=== PATIENT | male | born 1980 | race Caucasian/White ===

== ENCOUNTER 2016-09-30 23:40 | Emergency (ER) | payer MEDICAID ==
[~2016-09-30] VITALS: Ht 172.7 cm; Wt 61.2 kg
[~2016-09-30 23:40] MED LIST: ACHD5005 PO; AGM875T PO; AMOX500C2 PO; CLOT15CR4 TP; DICL25CA4 PO; HYDR-3812 PO; HYDR-757 PO; IBP800T PO; MPR22T TP; MUPI15CR TP; MUPI22OI TOP; NAPR500T3 PO; PERM60CR10 TOP; SULF-222 PO; SULF1TAB35 PO; TRAM50TA2 PO
--- OUTSIDE RECORDS SUMMARY | 2016-09-30 23:46 | XMS REPORT | Continuity of Care Document ---
Author Author [facility] Organization [facility] Address Unknown Phone Unavailable Care Team Providers Care Home Care Giver Name Role Phone NO, LOCAL PHYSICIAN PCP Unavailable Insurance Providers Payer Name Policy Number Subscriber Name Relationship [facility] [id number] Ritu Orlando S 18 Self / Same As Patient Advance Directives Directive Response Recorded Date/Time Advance Directives No 04/03/16 2:00pm Organ Donor Yes 02/29/16 5:34pm Chief Complaint and Reason for Visit Chief Complaint Skin/Wound Problems Reason for Visit [id number] Problems Active Problems Medical Problem Onset Date Status Abscess of axilla, left Unknown Acute Cellulitis of left forearm Unknown Acute Abndskkeaj-svxhniutl-kcleeym (DPT) vaccination administeredat current visit Unknown Acute History of MRSA infection Unknown Acute Jammed interphalangeal joint of finger of left hand Unknown Acute Perineal abscess, superficial Unknown Acute Scabies Unknown Acute Soft tissue infection Unknown Acute Thumb pain Unknown Acute Thumb pain Unknown Acute Medications Current Home Medications Medication Dose Units Route Directions Days/Qty Instructions Start Date Sulfamethoxazole/Trimethoprim 1 Each 1 Each Oral Twice A Day 20 Hydrocodone/Acetaminophen 1 Each 1 Each Oral Every 4HRS as needed for Pain 10 04/04/16 Past Home Medications Medication Directions Ordered Status Amoxicillin/Clavulanate Potassium 1 Tab Tablet, 1 Tab Oral Twice A Day Discontinued Mupirocin 22 Gm Tube, 0 Topical Twice A Day 11/22/12 Discontinued Amoxicillin 500 Mg Capsule, 1 Each Oral Three Times A Day 12/05/12 Discontinued Amoxicillin 500 Mg Capsule, 1 Each Oral Three Times A Day 11/26/13 Discontinued Acetaminophen/Hydrocodone Bitart 1 Each Tablet, 1-2 Each Oral Every 6 Hours as needed for Pain 11/26/13 Discontinued Tramadol Hcl 50 Mg Tablet, 50-100 Mg Oral Every 4HRS as needed for Pain 02/24 Discontinued Amoxicillin 500 Mg Capsule, 2 Each Oral Every 8HRS 02/24/14 Discontinued Ibuprofen 800 Mg Tablet, 800 Mg Oral Every 8HRS as needed for Pain 02/24/14 Discontinued Sulfamethoxazole/Trimethoprim 1 Each Tablet, 2 Each Oral Twice A Day Discontinued Mupirocin 22 Gm Oint...g., 0 Topically Twice A Day 12/04/15 Discontinued Sulfamethoxazole/Trimethoprim 1 Each Tablet, 1 Each Oral Twice A Day Discontinued Hydrocodone/Acetaminophen 1 Each Tablet, 1 Each Oral Every 4HRS as needed for Pain 02/29/16 Discontinued Social History Social History Problem Response Recorded Date/Time Alcohol Use Denies Use 02/29/2016 5:34pm Recreational Drug Use N DENIES, BUT HAS BEEN IN ER IN PAST FOR METH USE 02/28 5:34pm Recent Foreign Travel No 04/04/2016 2:22pm Sexually Transmitted Disease No 04/03/2016 2:00pm Type Used Cigarettes 04/03/2016 2:00pm Hospital Discharge Instructions No hospital discharge instructions. Plan of Care Discharge Date 04/04/16 3:17pm Disposition 01 HOME, SELF-CARE Condition at Discharge Improved Instructions/Education Provided Abscess Incision and Drainage (ED) Prescriptions See Medication Section Referrals NO,LOCAL PHYSICIAN - Primary Care Physician Additional Instructions/Education 1. Warm soaks in a bathtub 2. Continue the antibiotic ointment and pills 3. Return to ER for any worsening redness, swelling, fevers or other concerns All discharge instructions reviewed with patient and/or family. Voiced understanding. Functional Status No functional status results. Allergies, Adverse Reactions, Alerts No known allergies. Immunizations No immunization records. Vital Signs Acute Vital Signs Vital Response Date/Time Temperature (Fahrenheit) 98.8 degrees F (97.6 - 99.5) 04/03/2016 2:29pm Temperature (Calculated Celsius) 37.67615 degrees C (36.4 - 37.5) 04/03/2016 2:29pm Pulse Rate (adult) 110 bpm (60 - 90) 04/03/2016 2:29pm Respiratory Rate 18 bpm (12 - 24) 04/03/2016 2:29pm O2 Sat by Pulse Oximetry 97 % (88 - 100) 04/03/2016 2:29pm Blood Pressure 124/78 mm Hg 04/03/2016 2:29pm Blood Pressure Mean 93 mm Hg 04/03/2016 2:00pm Pain Numeric Pain Scale 0-No Pain 04/03/2016 2:29pm Height (Feet) 5 feet 04/03/2016 2:00pm Height (Inches) 9 inches 04/03/2016 2:00pm Height (Calculated Centimeters) 175.819604 cm 04/03/2016 2:00pm Weight (Pounds) 130 pounds 04/03/2016 2:00pm Weight (Calculated Kilograms) 58.158381 kilograms 04/03/2016 2:00pm Capillary Refill Capillary Refill Less Than 3 Seconds 04/03/2016 2:00pm Results No known relevant diagnostic tests, laboratory data and/or discharge summary. Procedures No known history of procedures. Encounters Encounter Location Arrival/Admit Date Discharge/Depart Date Attending Provider Departed Emergency Room [facility] 04/04/16 2:23pm 04/04 3:17pm JAZMINE LU MD Departed Emergency Room [facility] 04/03/16 1:56pm 04/03 2:30pm СЕРГЕЙ DAVIES MD Recent Diagnosis
[2016-10-01] MEDS ORDERED: RX-MUPIROCIN (BACTROBAN) 2% OINT 22 GM TUBE TOP STA (01:20)
[2016-10-01] MEDS ORDERED: RX-TRAMADOL 50 MG (ULTRAM) TAB PPK#4 PO STA (01:20)
[2016-10-01] MEDS ORDERED: TRIM/SULFAMETH 160/800 (SEPTRA DS) TAB PO STA (01:20)
--- NOTE | 2016-10-01 01:23 | ED Integumentary General ---
General Chief Complaint: Skin/Wound Problems Stated Complaint: MRSA ON NECK Nursing Triage Note: REPORTS A BOIL LEFT SIDE NECK ON THURSDAY WAS PICKED AT 2200 AND CONTINUES TO FILL UP. C/O SEVERE PAIN THAT IBUPROFEN, TYLENOL, AND ALEVE DOES NOT RELIEVE. ALSO STATES TRAMADOL IN PAST DOES NOT RELIEVE. Source: patient Exam Limitations: no limitations History of Present Illness Time seen by provider: 00:50 Initial Comments Here with report of painful/draining wound to the left side of the neck. States he has history of MRSA infections. Has been using dressing over the top and it is draining yellow fluid. He tried popping it which did get some purulent drainage from it. Complains of worse pain now. Home pain medications are not working. Timing/Duration: getting worse, other (couple of days) Severity: moderate Location: torso Possible Cause: no cause identified Associated Symptoms: edemaNo fever, flushingNo petechiae, No rash Allergies and Home Medications Allergies Coded Allergies: No Known Drug Allergies (Unverified , 11/19/12) Home Medications No Active Prescriptions or Reported Meds Constitutional: see HPINo chills, No fever Respiratory: no symptoms reported Cardiovascular: no symptoms reported Gastrointestinal: no symptoms reported Skin: see HPI change in color lesions Past Qaizucs-Vqvaup-Mrcoia Hx Patient Social History Alcohol Use: Denies Use Recreational Drug Use: No Smoking Status: Current Everyday Smoker Type Used: Cigarettes Recent Foreign Travel: No Contact w/Someone Who Travel: No Recent Infectious Disease Expo: No Recent Hopitalizations: No Physical Abuse Screen: No Sexual Abuse: No Immunizations Up To Date Tetanus Booster (TDap): Unknown Seasonal Allergies Seasonal Allergies: No Surgeries HX Surgeries: No Respiratory Hx Respiratory Disorders: No Cardiovascular Hx Cardiac Disorders: No Neurological Hx Neurological Disorders: No Reproductive System Hx Reproductive Disorders: No Sexually Transmitted Disease: No Genitourinary Hx Genitourinary Disorders: No Gastrointestinal Hx Gastrointestinal Disorders: No Musculoskeletal Hx Musculoskeletal Disorders: No Endocrine Hx Endocrine Disorders: No HEENT HX ENT Disorders: No Cancer Hx Cancer: No Psychosocial Hx Psychiatric Problems: No Integumentary HX Skin/Integumentary Disorder: Yes (MRSA ABSCESS HX, CURRENTLY ABSCESS LEFT SIDE OF NECK) Blood Transfusions Hx Blood Disorders: No Reviewed Nursing Assessment Reviewed/Agree w Nursing PMH: Yes Family Medical History Significant Family History: No Pertinent Family Hx Physical Exam Vital Signs Vital Sign - Last 12Hours 10/01/16 00:07 Temp 97.7 Pulse 93 Resp 16 B/P 119/79 O2 Delivery Room Air Capillary Refill : Less Than 3 Seconds General Appearance: WD/WN no apparent distress Neck: full range of motion supple other (draining abscess to the left upper neck near the angle of the jaw.) Cardiovascular: regular rate, rhythm no murmur Respiratory: lungs clear no accessory muscle use Neurologic/Psychiatric: alert oriented x 3 Skin: warm/dry Skin Problem Location: neck Skin Problem Character: abscess, drainage, erythema Progress/Results/Core Measures Results/Orders My Orders Orders-СЕРГЕЙ DAVIES MD Sulfamethoxazole/Trimet Ds Tab (Bactrim (10/01/16 01:20) Rx-Mupirocin 2% Oint (Rx-Bactroban) (10/01/16 01:20) Rx-Tramadol Hcl (Rx-Ultram) (10/01/16 01:20) Vital Signs/I&O Vital Sign - Last 12Hours 10/01/16 00:07 Temp 97.7 Pulse 93 Resp 16 B/P 119/79 O2 Delivery Room Air Blood Pressure Mean: 92 Progress Note : Progress Note Seen and evaluated. Bactrim DS one tab by mouth. Mupirocin ointment to the wound. Tramadol go pack given. Discharged home with return precautions. Patient verbalize understanding instructions and agreement with plan. Departure Impression Impression: Primary Impression: Abscess Disposition: HOME, SELF-CARE Condition: Stable Departure-Patient Inst. Decision time for Depature: 01:28 Referrals: NO,LOCAL PHYSICIAN (PCP/Family) Primary Care Physician Patient Instructions: Skin Abscess Add. Discharge Instructions: All discharge instructions reviewed with patient and/or family. Voiced understanding. Take medications as directed. Follow-up with your DrChristen in a few days for recheck. Return for worsening, fever, vomiting, weakness, rhythm problems or other concerns as needed. You may take Aleve 2 tablets twice daily for pain as well as the prescribed pain medicine. Use antibiotic ointment over the wound twice daily for the next several days or until healing over. Scripts Sulfamethoxazole/Trimethoprim (Sulfamethoxazole-Tmp Ds Tablet)1 Each Tablet1 Each PO BID #20 TAB Prov:СЕРГЕЙ DAVIES MD 10/01/16 Hydrocodone/Acetaminophen (Hydrocodon -Acetaminophen 5-325)1 Each Tablet1 Each PO Q6H PRN PAIN #10 TAB Prov:СЕРГЕЙ DAVIES MD 10/01/16 СЕРГЕЙ DAVIES MD Oct 01, 2016 01:23
[2016-10-01] MEDS ORDERED: SULF-222 PO (01:30)
[2016-10-01] MEDS ORDERED: HYDR-3812 PO (01:30)
[2016-10-01 01:45] VITALS: BP 124/69
== END 2016-10-01 01:44 | disposition home or self-care (01) ==
LOC: EDUNIT# 23:40 → ER 23:43
DX: L02.11 Cutaneous abscess of neck (principal); F17.210 Nicotine dependence, cigarettes, uncomplicated; Z86.14 Personal history of Methicillin resistant Staphylococcus aureus infection

== ENCOUNTER 2017-02-08 18:42 | Emergency (ER) | payer MEDICAID ==
[~2017-02-08] VITALS: Ht 172.7 cm; Wt 59.0 kg
[2017-02-08] MEDS ORDERED: L.E.T. SYRINGE 5 ML TOP ONE (20:00)
[2017-02-08] MEDS ORDERED: LIDOCAINE/EPI 1%-1:100,000 (XYLOCAINE) 20ML ONE (20:17)
[2017-02-08] MEDS ORDERED: HYDROcodone/APAP 5 MG/325 MG (LORTAB) TAB PO ONE (20:30)
[2017-02-08] MEDS ORDERED: LIDOCAINE/EPI 1%-1:100,000 (XYLOCAINE) 20ML INJ ONE (20:30)
[2017-02-08] MEDS ORDERED: RX-TRAMADOL 50 MG (ULTRAM) TAB PPK#4 PO STA (20:30)
[2017-02-08] MEDS ORDERED: DOXYCYCLINE 100 MG (VIBRAMYCIN) TABLET PO ONE (20:30)
[2017-02-08] MEDS ORDERED: DOXY100T2 PO (20:37)
--- NOTE | 2017-02-08 20:37 | ED Integumentary General ---
General Chief Complaint: Skin/Wound Problems Stated Complaint: MRSA BOIL Nursing Triage Note: PT TO ED 10 W/ C/O POSS MRSA "BOIL" TO UPPER GROIN ET "NUT SACK" X1 WK. NO OTHER C/O VOICED. PT IS REQUESTING HERLINDA TO BE HIS PROVIDER Source: patient, old records Exam Limitations: no limitations History of Present Illness Time seen by provider: 19:45 Initial Comments This 37-year-old gentleman presents to emergency room with complaints of recurrent groin and genital abscesses. He has had multiple lesions in the past and cultures have grown out MRSA with the same sensitivities which time. He typically takes Bactrim for these abscesses and has required incision and drainage multiple times. These abscesses have been present for several days. The lesion on his scrotum has drained and seems to be improving. He has had slight purulent drainage from the abscess in the suprapubic region. He denies any fevers. He is localized erythema around the suprapubic abscess. Allergies and Home Medications Allergies Coded Allergies: No Known Drug Allergies (Unverified , 11/19/12) Home Medications Doxycycline Hyclate 100 Mg Tablet, 100 MG PO BID, #20 Prescribed by: VICTOR HUGO TONEY on 02/08/172036 Hydrocodone/Acetaminophen 1 Each Tablet, 1 EACH PO Q6H PRN for PAIN, #10 Prescribed by: СЕРГЕЙ DAVIES on 10/01/16129 Sulfamethoxazole/Trimethoprim 1 Each Tablet, 1 EACH PO BID, #20 Prescribed by: СЕРГЕЙ DAVIES on 10/01/16129 Constitutional: no symptoms reported EENTM: no symptoms reported Respiratory: no symptoms reported Cardiovascular: no symptoms reported Gastrointestinal: no symptoms reported Genitourinary: no symptoms reported Musculoskeletal: no symptoms reported Skin: see HPI Psychiatric/Neurological: No Symptoms Reported Endocrine: No Symptoms Reported Hematologic/Lymphatic: No Symptoms Reported Past Vzzflwc-Qkzksm-Xrxwgx Hx Patient Social History Alcohol Use: Denies Use Recreational Drug Use: No Smoking Status: Current Everyday Smoker Type Used: Cigarettes Recent Foreign Travel: No Contact w/Someone Who Travel: No Recent Infectious Disease Expo: No Recent Hopitalizations: No Immunizations Up To Date Tetanus Booster (TDap): Unknown Seasonal Allergies Seasonal Allergies: No Surgeries HX Surgeries: Yes (incision and drainage of multiple abscesses) Respiratory Hx Respiratory Disorders: No Cardiovascular Hx Cardiac Disorders: No Neurological Hx Neurological Disorders: No Reproductive System Hx Reproductive Disorders: No Sexually Transmitted Disease: No Genitourinary Hx Genitourinary Disorders: No Gastrointestinal Hx Gastrointestinal Disorders: No Musculoskeletal Hx Musculoskeletal Disorders: No Endocrine Hx Endocrine Disorders: No HEENT HX ENT Disorders: No Cancer Hx Cancer: No Psychosocial Hx Psychiatric Problems: No Integumentary HX Skin/Integumentary Disorder: Yes (MRSA ABSCESS HX) Blood Transfusions Hx Blood Disorders: No Family Medical History Significant Family History: No Pertinent Family Hx Physical Exam Vital Signs Vital Sign - Last 12Hours 02/08/17 19:18 Temp 97.8 Pulse 86 Resp 20 B/P (MAP) 127/82 Pulse Ox 99 O2 Delivery Room Air Capillary Refill : Less Than 3 Seconds General Appearance: WD/WN, no apparent distress HEENT: normal ENT inspection Neck: normal inspection Cardiovascular: regular rate, rhythm, no edema, no murmur Respiratory: lungs clear, normal breath sounds, no respiratory distress, no accessory muscle use Extremities: normal inspection Neurologic/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 Erythema in the suprapubic area associated with induration and mild fluctuance of an abscess just superior to the base of the penis. There is a minute amount of purulent drainage coming from this area.) Skin Problem Character: abscess I&D : Blade Size: 11 Progress Skin was pretreated with LET. He had insufficient numbing of the skin with LET and requested injection for further anesthetic. Skin was cleaned with alcohol and less than 0.5 mL of lidocaine with epinephrine was injected directly under the skin to be incised. Skin was cleaned with chlorhexidine. A 5 mm incision was made over the area of greatest fluctuance. A significant amount of purulent thick drainage was expressed and milked out of the incision. The wound was bluntly and gently probed with hemostats. A small amount of additional purulent material was expressed. Wound was dressed with antibiotic ointment and sterile gauze. Patient tolerated the procedure well. Progress/Results/Core Measures Results/Orders My Orders Orders - VICTOR HUGO FANG MD Let Solution (Let Solution) (02/08/17 20:00) Hydrocodone/Apap 5/325 Tablet (Lortab 5 (02/08/17 20:30) Lidocaine/Epi 1% 1:100,000 (Xylocaine /E (02/08/17 20:30) Doxycycline Hyclate Tablet (Vibramycin T (02/08/17 20:30) Lidocaine/Epi 1% 1:100,000 (Xylocaine /E (02/08/17 20:17) Rx-Tramadol Hcl (Rx-Ultram) (02/08/17 20:30) Medications Given in ED Current Medications Medications Dose Ordered Sig/Shayan Route Start Time Stop Time Status Last Admin Dose Admin Acetaminophen/ Hydrocodone Bitart 1 tab ONCE ONCE PO 02/08/17 20:30 02/08/17 20:31 DC 02/08/17 20:29 1 TAB Doxycycline Hyclate 100 mg ONCE ONCE PO 02/08/17 20:30 02/08/17 20:31 DC 02/08/17 20:29 100 MG Lidocaine/ Epinephrine 20 ml ONCE ONCE INJ 02/08/17 20:30 02/08/17 20:31 DC 02/08/17 20:21 20 ML Tetracaine/ Epinephrine/ Lidocaine 1 ea ONCE ONCE TOP 02/08/17 20:00 02/08/17 20:01 DC 02/08/17 19:58 1 EA Vital Signs/I&O Vital Sign - Last 12Hours 02/08/17 19:18 Temp 97.8 Pulse 86 Resp 20 B/P (MAP) 127/82 Pulse Ox 99 O2 Delivery Room Air Blood Pressure Mean: 97 Progress Note : Progress Note Patient was given LET as pretreatment. He was then additionally given an injection of lidocaine with epinephrine for further anesthesia at his request. Incision and drainage was performed and a significant amount of purulent material was expressed. Wound was dressed. Patient was given doxycycline 100 mg orally, hydrocodone 5 mg, and a take-home pack of tramadol. He was offered a Toradol injection but declined. Wound was not cultured as there are multiple consistent cultures of MRSA in his chart. Departure Impression Impression: Primary Impression: Suprapubic abscess Additional Impressions: Encounter for incision and drainage procedure Scrotal abscess Cellulitis Qualified Codes: L03.90 - Cellulitis, unspecified Disposition: 01 HOME, SELF-CARE Condition: Improved Departure-Patient Inst. Decision time for Depature: 20:32 Referrals: NO,LOCAL PHYSICIAN (PCP/Family) Primary Care Physician Patient Instructions: Abscess Incision and Drainage (DC), Skin Abscess, MRSA ( DC) Add. Discharge Instructions: Complete your antibiotics as prescribed. Please be advised that this antibiotic may cause sun sensitivity. Use ibuprofen up to 600 mg every 6 hours or naproxen up to 500 mg every 12 hours for primary pain control. Add Tylenol and Ultram (tramadol) for additional pain control if needed. Warm moist compresses or warm sitz baths 2 or 3 times daily over the next couple of days will help the abscess continued to drain. Return to care if symptoms worsen, especially if you develop fevers over 100. You may purchase Hibiclens (chlorhexidine) soap [id number]. Wash head to toe with Hibiclens daily until your current abscess and cellulitis have resolved. Then wash with Hibiclens once weekly to prevent further abscesses. You may use Hibiclens along with your usual soap to improve sudsing. Avoid shaving affected areas. All discharge instructions reviewed with patient and/or family. Voiced understanding. Scripts Doxycycline Hyclate (Doxycycline Hyclate) 100 Mg Tablet 100 MG PO BID, #20 TAB Prov: VICTOR HUGO FANG MD 02/08/17 VICTOR HUGO FANG MD Feb 08, 2017 20:36
[2017-02-08 20:44] VITALS: BP 122/79
[2017-02-08] MEDS ORDERED: TRAM-42 PO (21:02)
== END 2017-02-08 20:42 | disposition home or self-care (01) ==
LOC: EDUNIT# 18:42 → ER 18:43
DX: N49.2 Inflammatory disorders of scrotum (principal); L03.90 Cellulitis, unspecified; F17.210 Nicotine dependence, cigarettes, uncomplicated; Z87.2 Personal history of diseases of the skin and subcutaneous tissue
CPT/HCPCS: 99283

== ENCOUNTER 2017-05-19 20:52 | Emergency (ER) | payer MEDICAID ==
[~2017-05-19] VITALS: Ht 177.8 cm; Wt 59.0 kg
[~2017-05-19 20:52] MED LIST changes: +DOXY100T2 PO; +TRAM-42 PO
[2017-05-19] MEDS ORDERED: SULF1TAB35 PO (21:54)
--- NOTE | 2017-05-19 21:55 | ED Integumentary General ---
General Chief Complaint: Skin/Wound Problems Stated Complaint: FACE SORE Nursing Triage Note: ABSCESS ON R CHEEK X 1 WEEK Source: patient Exam Limitations: no limitations History of Present Illness Time seen by provider: 21:53 Initial Comments To ER with a nodule to the right cheek for 1 week. He's been applying warm compresses and today this developed a pustule. He was scared about this at home sick in the emergency room. He does have a history of abscesses and MRSA. Timing/Duration: just prior to arrival Severity: moderate Location: face Associated Symptoms: denies symptoms Allergies and Home Medications Allergies Coded Allergies: No Known Drug Allergies (Unverified , 11/19/12) Home Medications Doxycycline Hyclate 100 Mg Tablet, 100 MG PO BID, #20 Prescribed by: VICTOR HUGO TONEY on 02/08/172036 Hydrocodone/Acetaminophen 1 Each Tablet, 1 EACH PO Q6H PRN for PAIN, #10 Prescribed by: СЕРГЕЙ DAVIES on 10/01/16129 Sulfamethoxazole/Trimethoprim 1 Each Tablet, 1 EACH PO BID, #20 Prescribed by: СЕРГЕЙ DAVIES on 10/01/16129 Tramadol HCl 50 Mg Tablet, 50 MG PO QID, #10 Prescribed by: VICTOR HUGO TONEY on 02/08/172101 Constitutional: see HPI EENTM: see HPI Respiratory: no symptoms reported Cardiovascular: no symptoms reported Genitourinary: no symptoms reported Musculoskeletal: no symptoms reported Skin: see HPI Psychiatric/Neurological: No Symptoms Reported Past Ekooqzf-Gwwxcu-Ctkbwl Hx Patient Social History Alcohol Use: Denies Use Recreational Drug Use: No Smoking Status: Current Everyday Smoker Type Used: Cigarettes Recent Foreign Travel: No Contact w/Someone Who Travel: No Recent Infectious Disease Expo: No Recent Hopitalizations: No Physical Abuse: No Sexual Abuse: No Immunizations Up To Date Tetanus Booster (TDap): Unknown Seasonal Allergies Seasonal Allergies: No Surgeries History of Surgeries: No Respiratory History of Respiratory Disorde: No Cardiovascular History of Cardiac Disorders: No Neurological History of Neurological Disord: No Reproductive System Hx Reproductive Disorders: No Sexually Transmitted Disease: No Gastrointestinal History of Gastrointestinal Di: No Musculoskeletal History of Musculoskeletal Dis: No Endocrine History of Endocrine Disorders: No Cancer History of Cancer: No Psychosocial History of Psychiatric Problem: No Suicide Risk Score: 0 Integumentary History of Skin or Integumenta: Yes (MRSA ABSCESS HX, CURRENTLY ABSCESS LEFT SIDE OF NECK) Blood Transfusions History of Blood Disorders: No Family Medical History Significant Family History: No Pertinent Family Hx Physical Exam Vital Signs Vital Sign - Last 12Hours 05/19/17 21:34 Temp 98.9 Pulse 84 Resp 18 B/P (MAP) 135/78 Pulse Ox 98 Capillary Refill : Less Than 3 Seconds General Appearance: WD/WN, no apparent distress HEENT: PERRL/EOMI, normal ENT inspection, other (there is a small 1 semi- pustule to the right cheek easily unroofed with an 11 blade scalpel with no lidocaine required. Small amount of purulent material expressed.) Neck: non-tender, full range of motion Respiratory: normal breath sounds, no respiratory distress Gastrointestinal: non tender, soft Neurologic/Psychiatric: alert, normal mood/affect, oriented x 3 Skin: normal color, warm/dry Skin Problem Character: abscess Progress/Results/Core Measures Results/Orders Vital Signs/I&O Vital Sign - Last 12Hours 05/19/17 21:34 Temp 98.9 Pulse 84 Resp 18 B/P (MAP) 135/78 Pulse Ox 98 Blood Pressure Mean: 97 Departure Impression Impression: Primary Impression: Facial abscess Disposition: 01 HOME, SELF-CARE Condition: Stable Departure-Patient Inst. Decision time for Depature: 21:54 Referrals: NO,LOCAL PHYSICIAN (PCP/Family) Primary Care Physician Patient Instructions: Skin Abscess Add. Discharge Instructions: 1. Continue to use warm compresses to this area 2. Pain medication and antibiotic as directed 3. Return to ER for any concerns All discharge instructions reviewed with patient and/or family. Voiced understanding. Scripts Sulfamethoxazole/Trimethoprim (Bactrim Ds Tablet) 1 Each Tablet 1 EACH PO BID, #14 TAB Prov: MARIANN MCDONALD SHRINK PIT OPERATOR 05/19/17 MARIANN MCDONALD APRN May 19, 2017 21:55
[2017-05-19] MEDS ORDERED: RX-HYDROCODONE/APAP 5/325 MG #4 TAB PK PO PRN (22:00)
[2017-05-19] MEDS ORDERED: TRIM/SULFAMETH 160/800 (SEPTRA DS) TAB PO ONE (22:00)
[2017-05-19 22:03] VITALS: BP 135/78
== END 2017-05-19 22:03 | disposition home or self-care (01) ==
LOC: EDUNIT# 20:52 → ER 20:54
DX: L02.01 Cutaneous abscess of face (principal); Z87.2 Personal history of diseases of the skin and subcutaneous tissue; F17.210 Nicotine dependence, cigarettes, uncomplicated

== ENCOUNTER 2017-05-30 11:12 | Emergency (ER) | payer MEDICAID ==
[~2017-05-30] VITALS: Ht 182.9 cm; Wt 61.2 kg
[2017-05-30] MEDS ORDERED: NAPR500T3 (11:57)
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
[2017-05-30] MEDS ORDERED: SULF1TAB35 PO (12:42)
[2017-05-30] MEDS ORDERED: TRAM50TA2 PO (12:42)
[2017-05-30] MEDS: TRIM/SULFAMETH 160/800 (SEPTRA DS) TAB PO ONE (12:57)
[2017-05-30] MEDS: IBUPROFEN 800 MG (MOTRIN) TAB PO STA (12:57)
[2017-05-30 12:59] VITALS: BP 131/88
== END 2017-05-30 12:59 | disposition home or self-care (01) ==
LOC: EDUNIT# 11:12 → ER 11:14
DX: S92.491A Other fracture of right great toe, initial encounter for closed fracture (principal); L03.031 Cellulitis of right toe; V19.9XXA Pedal cyclist (driver) (passenger) injured in unspecified traffic accident, initial encounter
CPT/HCPCS: 73630; 99283

== ENCOUNTER 2017-08-02 12:37 | Emergency (ER) | payer MEDICAID ==
[~2017-08-02] VITALS: Ht 182.9 cm; Wt 61.2 kg
[~2017-08-02 12:37] MED LIST changes: -NAPR500T3 PO; +NAPR500T4; +NAPR500T4 PO
[2017-08-02] MEDS ORDERED: LIDOCAINE 1% INJ 20 ML (XYLOCAINE) VIAL INJ ONE (12:45)
--- NOTE | 2017-08-02 12:49 | ED Integumentary General ---
General Stated Complaint: MRSA WOUND ON CHIN Source: patient Exam Limitations: no limitations History of Present Illness Time seen by provider: 12:43 Initial Comments Patient has ER by private conveyance with chief complaint that he has a small abscess on the mentum this started a few days ago. Patient has not been on antibiotic last 4 weeks although he does have a history of several abscesses that he is had treated in the past. He does not have any allergies although he does smoke half pack a day and has had no fevers, chills, nausea, vomiting, or skin rash. Allergies and Home Medications Allergies Coded Allergies: No Known Drug Allergies (Unverified , 11/19/12) Home Medications Naproxen 500 Mg Tablet, (Reported) Sulfamethoxazole/Trimethoprim 1 Each Tablet, 1 EACH PO BID, #14 Ref 0 Prescribed by: HERLINDA PINZON on 05/30/17 1242 Tramadol HCl 50 Mg Tablet, 50 MG PO Q6H PRN for pain, #10 Ref 0 Prescribed by: HERLINDA PINZON on 05/30/17 1242 Constitutional: No chills, No diaphoresis EENTM: no symptoms reported Respiratory: No cough, No short of breath Cardiovascular: No chest pain, No palpitations Gastrointestinal: No abdominal pain, No nausea, No vomiting Skin: see HPI Psychiatric/Neurological: Denies Headache, Denies Numbness Past Ojxvugd-Jucjhu-Phtgac Hx Patient Social History Alcohol Use: Denies Use Recreational Drug Use: No Smoking Status: Current Everyday Smoker Type Used: Cigarettes (0.5ppd) Recent Foreign Travel: No Contact w/Someone Who Travel: No Recent Hopitalizations: No Immunizations Up To Date Tetanus Booster (TDap): Less than 5yrs Seasonal Allergies Seasonal Allergies: No Surgeries History of Surgeries: No Respiratory History of Respiratory Disorde: No Cardiovascular History of Cardiac Disorders: No Neurological History of Neurological Disord: No Reproductive System Hx Reproductive Disorders: No Sexually Transmitted Disease: No Gastrointestinal History of Gastrointestinal Di: No Musculoskeletal History of Musculoskeletal Dis: No Endocrine History of Endocrine Disorders: No HEENT History of HEENT Disorders: No Cancer History of Cancer: No Psychosocial History of Psychiatric Problem: No Integumentary History of Skin or Integumenta: Yes (MRSA ABSCESS HX,) Blood Transfusions History of Blood Disorders: No Family Medical History Significant Family History: No Pertinent Family Hx Physical Exam Vital Signs Capillary Refill : General Appearance: no apparent distress, thin HEENT: PERRL/EOMI, pharynx normal Neck: non-tender, normal inspection Cardiovascular: normal peripheral pulses, regular rate, rhythm Respiratory: no respiratory distress, no accessory muscle use Neurologic/Psychiatric: alert, oriented x 3 Skin: other (27 m diameter erythematous indurated portion with a central poor and small amount of purulent material oozing out of a area on the anterior mentum.) Lymphatic: no adenopathy I&D : Blade Size: 11 I & D Procedure: betadine prep (alcohol) Progress Site was cleaned with iodine and alcohol and then infiltrated and a ring block fashion with the cc of 1% lidocaine without epinephrine. The patient was ascertained to be numb 11 blade was introduced in a cross alcantara fashion to the pore producing approximately 3 cc of purulent white, caseous material. Wound was then lightly explored with the blunt end of a cotton tipped sterile applicator to break up loculations and then a light gauze dressing was applied. Patient tolerated procedure well. Progress/Results/Core Measures Results/Orders My Orders Orders - HERNANDO BROWN Lidocaine 1% Injection (Xylocaine 1% Inj (08/02/17 12:45) Departure Impression Impression: Primary Impression: Abscess Disposition: 01 HOME, SELF-CARE Condition: Stable Departure-Patient Inst. Decision time for Depature: 13:00 Referrals: NO,LOCAL PHYSICIAN (PCP/Family) Primary Care Physician Patient Instructions: Abscess Incision and Drainage (DC) Add. Discharge Instructions: Keep the wound clean with soap and water. I'll light gauze dressing is already needed. Do not put any Vaseline, triple antibiotic ointment or packing into the wound. Take one tablet of Bactrim twice a day for the next 5 days. Use 1000 g of Tylenol every 8 hours or 800 mg of ibuprofen every 8 hours as needed for pain. If your pain is not under complete control you may also use an ice pack over the area or heat. If this does not control your pain and follow- up with her primary care physician for reexamination of the wound. The skin should heal over in the first 24-48 hours. If you begin to experience nausea and vomiting or fevers you should return to the ER or your primary care physician for evaluation. Scripts Sulfamethoxazole/Trimethoprim (Bactrim Ds Tablet) 1 Each Tablet 1 EACH PO BID for 5 Days, #10 TAB 0 Refills Prov: STEPHANIE,HERNANDO J 08/02/17 HERNANDO BROWN Aug 02, 2017 12:49
[2017-08-02] MEDS ORDERED: SULF1TAB35 PO (13:03)
[2017-08-02 13:08] VITALS: BP 153/96
== END 2017-08-02 13:08 | disposition home or self-care (01) ==
LOC: EDUNIT# 12:37 → ER 12:39
DX: L02.01 Cutaneous abscess of face (principal); F17.210 Nicotine dependence, cigarettes, uncomplicated; Z87.2 Personal history of diseases of the skin and subcutaneous tissue

== ENCOUNTER 2017-12-18 21:40 | Emergency (ER) | payer MEDICAID ==
[~2017-12-18] VITALS: Ht 172.7 cm; Wt 54.4 kg
[~2017-12-18 21:40] MED LIST changes: -HYDR-3812 PO; +NAPR-915; +NAPR-915 PO; -NAPR500T4; -NAPR500T4 PO
[2017-12-18] MEDS ORDERED: RX-NAPROXEN (NAPROSYN) 250 MG TAB PPK#4 PO STA (21:58)
[2017-12-18] MEDS ORDERED: RX-TRIMETH/SULFA. 160-800 MG (BACTRIM DS) TAB PPK#2 PO STA (21:58)
[2017-12-18] MEDS ORDERED: RX-HYDROCODONE/APAP 5/325 MG #4 TAB PK PO PRN (22:00)
[2017-12-18] MEDS ORDERED: SULF1TAB35 PO (22:02)
--- NOTE | 2017-12-18 22:02 | ED Integumentary General ---
General Chief Complaint: Skin/Wound Problems Stated Complaint: L ANKLE PAIN Source: patient Exam Limitations: no limitations History of Present Illness Date Seen by Provider: Dec 18, 2017 Time Seen by Provider: 21:59 Initial Comments To ER with an abscess to left anterior ankle. Present for a few days, got some white pus out of it. History of multiple and recurrent MRSA infections. No fevers or chills. Timing/Duration: constant Allergies and Home Medications Allergies Coded Allergies: No Known Drug Allergies (Unverified , 11/19/12) Home Medications Sulfamethoxazole/Trimethoprim 1 Each Tablet, 1 EACH PO BID Prescribed by: HERNANDO BROWN on 08/02/17 1303 Patient Home Medication List Home Medication List Reviewed: Yes Constitutional: see HPI EENTM: see HPI Respiratory: no symptoms reported Genitourinary: no symptoms reported Musculoskeletal: no symptoms reported Skin: see HPI Psychiatric/Neurological: No Symptoms Reported Past Elxjlhh-Kqyhko-Rkqqoc Hx Patient Social History Alcohol Use: Denies Use Recreational Drug Use: No Smoking Status: Current Everyday Smoker Type Used: Cigarettes 2nd Hand Smoke Exposure: Yes Recent Foreign Travel: No Contact w/Someone Who Travel: No Recent Hopitalizations: No Immunizations Up To Date Tetanus Booster (TDap): Less than 5yrs Seasonal Allergies Seasonal Allergies: No Past Medical History Surgeries: No Respiratory: No Cardiac: No Neurological: No Reproductive Disorders: No Sexually Transmitted Disease: No Genitourinary: No Gastrointestinal: No Musculoskeletal: No Endocrine: No HEENT: No Cancer: No Psychosocial: No Integumentary: Yes (MRSA ABSCESS HX,) Blood Disorders: No Family Medical History No Pertinent Family Hx Physical Exam Vital Signs Capillary Refill : General Appearance: WD/WN, no apparent distress HEENT: PERRL/EOMI, normal ENT inspection Neck: non-tender, full range of motion Respiratory: no respiratory distress, no accessory muscle use Neurologic/Psychiatric: alert, normal mood/affect, oriented x 3 Skin: normal color, warm/dry Skin Problem Character: abscess, other (Small 2 cm area of circular erythema to the left anterior lower leg without lymphangitis. There is minimal induration and certainly no fluctuance. There is a small eschar over this. There is a larger area just distal to this with erythema more consistent with a small area of cellulitis measuring about 6 x 7 cm, again without lymphangitis, induration or fluctuance.) Progress/Results/Core Measures My Orders Orders - MARIANN MCDONALD APRN Rx-Trimeth/Sulfameth Ds Tab (Rx-Bactrim/ (12/18/17 21:58) Rx-Naproxen (Rx-Naprosyn) (12/18/17 21:58) Rx-Hydrocodone/Apap 5-325 Mg (Rx-Vicodin (12/18/17 22:00) Departure Impression Primary Impression: Abscess of left lower leg Disposition: HOME, SELF-CARE Condition: Stable Departure-Patient Inst. Decision time for Depature: 22:01 Referrals: NO,LOCAL PHYSICIAN (PCP/Family) Primary Care Physician Patient Instructions: Skin Abscess Add. Discharge Instructions: 1. Warm compresses to this area. 2. Antibiotics as directed 3. All discharge instructions reviewed with patient and/or family. Voiced understanding. Scripts Sulfamethoxazole/Trimethoprim (Bactrim Ds Tablet) 1 Each Tablet 1 EACH PO BID, #14 TAB Prov: MARIANN MCDONALD APRN 12/18/17 MARIANN MCDONALD APRN Dec 18, 2017 22:02
[2017-12-18 22:12] VITALS: BP 132/87
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
== END 2017-12-18 22:11 | disposition home or self-care (01) ==
LOC: EDUNIT# 21:40 → ER 21:41
DX: L02.416 Cutaneous abscess of left lower limb (principal); F17.210 Nicotine dependence, cigarettes, uncomplicated; Z86.14 Personal history of Methicillin resistant Staphylococcus aureus infection
CPT/HCPCS: 99283

== ENCOUNTER 2018-01-24 02:29 | Emergency (ER) | payer MEDICAID ==
[~2018-01-24] VITALS: Ht 182.9 cm; Wt 63.5 kg
[2018-01-24 02:54] VITALS: BP 158/88
--- NOTE | 2018-01-24 03:01 | ED Integumentary General ---
General Stated Complaint: WOUND,RASH ISSUES Source: patient Exam Limitations: no limitations History of Present Illness Date Seen by Provider: January 24, 2018 Time Seen by Provider: 02:53 Initial Comments Patient resists ER by private conveyance with a chief complaint of a knot on the back of his neck that has swollen up and his been draining a little pus and blood the past couple days. He has abscesses here before. He's had them drained at this ER and at those times she was given some pain medicine he said and some antibiotics. Allergies and Home Medications Allergies Coded Allergies: No Known Drug Allergies (Unverified , 11/19/12) Home Medications Sulfamethoxazole/Trimethoprim 1 Each Tablet, 1 EACH PO BID Prescribed by: HERNANDO BROWN on 08/02/17 1303 Sulfamethoxazole/Trimethoprim 1 Each Tablet, 1 EACH PO BID Prescribed by: MARIANN MCDONALD on 12/18/17 2202 Patient Home Medication List Home Medication List Reviewed: Yes Constitutional: No chills, No fever, No malaise EENTM: No ear discharge, No ear pain Respiratory: No cough, No short of breath Cardiovascular: No chest pain, No palpitations Gastrointestinal: No abdominal pain, No constipation, No diarrhea, No nausea, No vomiting Genitourinary: No discharge, No dysuria Musculoskeletal: No back pain, No joint pain Past Tooqsqa-Qbbgyh-Ovlutm Hx Patient Social History Alcohol Use: Occasionally Uses Recreational Drug Use: No Smoking Status: Current Everyday Smoker Type Used: Cigarettes 2nd Hand Smoke Exposure: Yes Recent Foreign Travel: No Contact w/Someone Who Travel: No Recent Hopitalizations: No Immunizations Up To Date Tetanus Booster (TDap): Less than 5yrs Seasonal Allergies Seasonal Allergies: No Past Medical History Surgeries: No Respiratory: No Cardiac: No Neurological: No Reproductive Disorders: No Sexually Transmitted Disease: No Genitourinary: No Gastrointestinal: No Musculoskeletal: No Endocrine: No HEENT: No Cancer: No Psychosocial: No Integumentary: Yes (MRSA ABSCESS HX,) Blood Disorders: No Family Medical History No Pertinent Family Hx Physical Exam Vital Signs Vital Signs - First Documented 01/24/18 02:54 Temp 97.4 Pulse 117 Resp 20 B/P (MAP) 158/88 (111) Pulse Ox 97 O2 Delivery Room Air Capillary Refill : General Appearance: WD/WN, no apparent distress HEENT: PERRL/EOMI, pharynx normal Neck: non-tender, normal inspection Cardiovascular: normal peripheral pulses, regular rate, rhythm Respiratory: chest non-tender, lungs clear, normal breath sounds, no respiratory distress, no accessory muscle use Gastrointestinal: normal bowel sounds, non tender, soft Neurologic/Psychiatric: alert, oriented x 3 Skin: other (nodule that is tender with area of fluctuance underneath it and a central pore on the base of his neck.) Progress/Results/Core Measures Results/Orders Vital Signs/I&O 01/24/18 02:54 Temp 97.4 Pulse 117 Resp 20 B/P (MAP) 158/88 (111) Pulse Ox 97 O2 Delivery Room Air Progress Progress Note #1: Time: 03:00 Progress Note We will use some lidocaine then incise and drained his abscess. Progress Note #2: Time: 03:37 Progress Note Got about 6 cc of lidocaine and a ring block fashion around an infiltrating his wound gave him 10 minutes to set and then went in and tested him he said he was not feeling any pain so we inserted the 11 blade scalpel one time he said he had a lot of pain so we offered him some more lidocaine he said that he would just go somewhere else because we clearly normal were doing. Departure Impression Primary Impression: Abscess Disposition: 07 AGAINST MEDICAL ADVICE Condition: Against Medical Advice Departure-Patient Inst. Decision time for Depature: 03:38 Referrals: NO,LOCAL PHYSICIAN (PCP/Family) Primary Care Physician Patient Instructions: Abscess Incision and Drainage (DC) Add. 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 Follow- up with a primary care provider during business hours and have your abscess drained. Scripts Sulfamethoxazole/Trimethoprim (Bactrim Ds Tablet) 1 Each Tablet 1 EACH PO BID for 5 Days, #10 TAB 0 Refills Prov: HERNANDO BROWN 01/24/18 HERNANDO BROWN January 24, 2018 03:01
[2018-01-24] MEDS ORDERED: SULF1TAB35 PO (03:40)
== END 2018-01-24 03:35 | disposition left against medical advice (07) ==
LOC: EDUNIT# 02:29 → ER 02:30
DX: L02.11 Cutaneous abscess of neck (principal); F17.210 Nicotine dependence, cigarettes, uncomplicated; Z87.2 Personal history of diseases of the skin and subcutaneous tissue
CPT/HCPCS: 10060

== ENCOUNTER 2018-01-26 14:53 | Emergency (ER) | payer MEDICAID ==
[~2018-01-26] VITALS: Ht 182.9 cm; Wt 63.5 kg
--- OUTSIDE RECORDS SUMMARY | 2018-01-26 15:01 | XMS REPORT ---
Author Author TRAVIS EDDY [facility] Address [address] [place] [address] Care Team Providers Care Risk Assessment Consultant Name Role Phone TRAVIS EDDY Unavailable PROBLEMS Unknown Problems ALLERGIES No Known Allergies ENCOUNTERS Encounter Location Date Diagnosis [facility] [id number] [place] [id number] Nov, Dental examination Z01.20 and Dental caries K02.9 [place] [id number] [place] [id number] [place] [phone] Jun, Hospital discharge follow-up Z09 and Closed nondisplaced fracture of proximal phalanx of right great toe with routine healing, subsequent encounter S92.414D [facility] [address] [place] [address] Feb, MRSA (methicillin resistant Staphylococcus aureus) infection A49.02 [facility] [address] [place] [phone] Jul, Unspecified injury of left wrist, hand and finger(s), subsequent encounter S69.92XD [facility] [address] [place] [id number] Mar, Dental examination V72.2 [facility] [address] [place] [address] Dec, [facility] [id number] [place] [address] Dec, [facility] [address] [place] [phone] Oct, [facility] [id number] [place] [phone] Oct, [facility] [id number] [address] Oct, 2014 [facility] [address] [place] [address] Oct, 2014 [facility] [id number] [place] [address] Oct, 2014 [facility] [address] [address] Aug, [facility] [address] [place] [address] Aug, [facility] [id number] [address] Aug, [facility] [id number] [place] [address] Aug, [facility] [address] [place] [address] Aug, [facility] [address] [place] [address] Aug, [facility] [id number] [place] [address] Aug, [facility] [address] [place] [address] Aug, [facility] [id number] [address] Dec, IMMUNIZATIONS No Known Immunizations SOCIAL HISTORY Never Assessed REASON FOR VISIT Hospital f/u- vc--[facility], -Right great toe fracture PLAN OF CARE Activity Details Follow Up prn Reason: VITAL SIGNS Height 72 in 2017-06-08 Weight 138.0 lbs 2017-06-08 Temperature 98.5 degrees Fahrenheit 2017-06-08 Heart Rate 64 bpm 2017-06-08 Respiratory Rate 20 2017-06-08 BMI 18.71 kg/m2 2017-06-08 Blood pressure systolic 130 mmHg 2017-06-08 Blood pressure diastolic 82 mmHg 2017-06-08 MEDICATIONS Medication Instructions Dosage Frequency Start Date End Date Duration Status Bactrim 400-80 MG Orally 2 times a day 1 tablet 12h 10 days Active RESULTS No Results PROCEDURES No Known procedures INSTRUCTIONS MEDICATIONS ADMINISTERED No Known Medications MEDICAL (GENERAL) HISTORY Type Description Date Medical History Adjustment disorder with mixed disturbance of emotions and conduct Medical History Other psoriasis
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
--- NOTE | 2018-01-26 15:35 | ED General ---
General Chief Complaint: Upper Extremity Stated Complaint: ABSCESS ON NECK AND RIGHT HAND INJ Nursing Triage Note: PT STATES HE HIT A DOOR YESTERDAY, RT HAND SWOLLEN AND PAINFUL. ALSO HAS AN ABSCESS ON THE BACK OF HIS HEAD. Nursing Sepsis Screen: No Definite Risk Source of Information: Patient Exam Limitations: No Limitations History of Present Illness Date Seen by Provider: January 26, 2018 Time Seen by Provider: 15:20 Initial Comments 38 yo male patient presents to the ED with c/o right hand pain after hitting a door yesterday when he was angry. Also c/o an abscess of the posterior neck for approximately a week. He was seen in the ED by Dr. Stovall on 01/24/18, but left AMA. He did not stay to get antibiotics. Patient denies contacting his PCP for recheck or new complaint. denies using [id number] medications for symptoms. Patient has a h/o numerous infections and abscesses. Modifying Factors: improves with Immobilization; worse with Movement Allergies and Home Medications Allergies Coded Allergies: No Known Drug Allergies (Unverified , 11/19/12) Home Medications Hydrocodone/Acetaminophen 1 Each Tablet, 1 EACH PO Q6H PRN for pain Prescribed by: HERLINDA PINZON on 01/26/18 1638 Sulfamethoxazole/Trimethoprim 1 Each Tablet, 1 EACH PO BID Prescribed by: HERNANDO STOVALL on 08/02/17 1303 Sulfamethoxazole/Trimethoprim 1 Each Tablet, 1 EACH PO BID Prescribed by: MARIANN MCDONALD on 12/18/17 2202 Sulfamethoxazole/Trimethoprim 1 Each Tablet, 1 EACH PO BID Prescribed by: HERNANDO STOVALL on 01/24/18 0340 Sulfamethoxazole/Trimethoprim 1 Each Tablet, 1 EACH PO BID Prescribed by: HERLINDA PINZON on 01/26/18 1638 Patient Home Medication List Home Medication List Reviewed: Yes Review of Systems Constitutional: No chills, No fever, No malaise EENTM: no symptoms reported Respiratory: no symptoms reported Cardiovascular: no symptoms reported Musculoskeletal: see HPI, joint pain (rt hand), joint swelling (rt hand swelling.) Skin: see HPI, lumps (infections of the posterior neck.) Psychiatric/Neurological: No Symptoms Reported All Other Systems Reviewed Negative Unless Noted: Yes (Negative excepted noted.) Past Inscvwb-Dnydix-Zmjgln Hx Past Med/Social Hx: Reviewed Nursing Past Med/Soc Hx Patient Social History Alcohol Use: Denies Use Recreational Drug Use: No Smoking Status: Current Everyday Smoker Type Used: Cigarettes 2nd Hand Smoke Exposure: Yes Recent Foreign Travel: No Contact w/Someone Who Travel: No Recent Infectious Disease Expo: No Recent Hopitalizations: No Immunizations Up To Date Tetanus Booster (TDap): Less than 5yrs Seasonal Allergies Seasonal Allergies: No Past Medical History Surgeries: No Respiratory: No Cardiac: No Neurological: No Reproductive Disorders: No Sexually Transmitted Disease: No Genitourinary: No Gastrointestinal: No Musculoskeletal: No Endocrine: No HEENT: No Cancer: No Psychosocial: No Integumentary: Yes (MRSA ABSCESS HX,) Blood Disorders: No Family Medical History Reviewed Nursing Family Hx No Pertinent Family Hx Physical Exam Vital Signs Vital Signs - First Documented 01/26/18 15:22 Temp 97.8 Pulse 98 Resp 20 B/P (MAP) 127/93 (104) Pulse Ox 99 O2 Delivery Room Air Capillary Refill : Less Than 3 Seconds General Appearance: No Apparent Distress, WD/WN HEENT: PERRL/EOMI, Pharynx Normal Neck: Full Range of Motion, Supple, Other (a cluster of superficial pustules noted with a central scab of the posterior scalp (see images). (+) induration with mild localized swelling and erythema. no warmth noted.) Cardiovascular: Normal Peripheral Pulses Extremity: Normal Capillary Refill, Other ((+) swelling of the right hand with mild bony and soft tissue tenderness to the distal 5th metacarpal. no ecchymosis noted.) Neurologic/Psychiatric: Alert, Oriented x3, No Motor/Sensory Deficits, Normal Mood/Affect Skin: Normal Color, Warm/Dry, Other (a cluster of superficial pustules noted with a central scab of the posterior scalp (see images). (+) induration with mild localized swelling and erythema. no warmth noted.) Procedures/Interventions Splinting and Joint Reduction : Location: rt hand Pre-Proc Neuro Vasc Exam: normal Post-Proc Neuro Vasc Exam: normal Davidson wrap: Yes (to secure orthoglass) Hand-Made Type: orthoglass Splint Application: Short Arm Progress/Results/Core Measures Suspected Sepsis Recent Fever Within 48 Hours: No Infection Criteria Present: None New/Unexplained Altered Menta: No Sepsis Screen: No Definite Risk SIRS Temperature:97.8 Pulse: 98 Respiratory Rate: 20 Blood Pressure 127 /93 Mean: 104 Results/Orders My Orders Orders - HERLINDA PINZON Hand, Right, 3 Views (01/26/18 15:17) Hydrocodone/Apap 5/325 Tablet (Lortab 5 (01/26/18 15:40) Vital Signs/I&O 01/26/18 01/26/18 15:22 16:13 Temp 97.8 97.8 Pulse 98 Resp 20 B/P (MAP) 127/93 (104) Pulse Ox 99 O2 Delivery Room Air Capillary Refill : Less Than 3 Seconds Blood Pressure Mean: 104 Diagnostic Imaging Diagonstic Imaging: Xray Plain Films/CT/US/NM/MRI: hand Comments HAND, RIGHT, 3 VIEWS INDICATION: Pain. FINDINGS: There is a fracture of the distal fifth metacarpal. The distal fracture fragment is angled volarly. There is no other fracture or dislocation. The soft tissues are unremarkable. IMPRESSION: Slightly displaced fracture of the distal fifth metacarpal. Dictated by: Dictated on workstation # [id number] Reviewed: Reviewed by Me (radiology report reviewed by me) Departure Impression Primary Impression: Fracture of fifth metacarpal bone of right hand Additional Impression: Abscess or cellulitis of scalp Disposition: 01 HOME, SELF-CARE Condition: Improved Departure-Patient Inst. Decision time for Depature: 16:37 Referrals: NO,LOCAL PHYSICIAN (PCP) Primary Care Physician JOJO GOOD MD Patient Instructions: How to Use a Shoulder Sling, Hand Fracture (DC) Add. Discharge Instructions: All discharge instructions reviewed with patient and/or family. Voiced understanding. Medications as instructed. No ibuprofen or Aleve. Elevate the right hand on pillows. Ice pack for 20 minute intervals as needed for pain and swelling. Keep the splint clean and dry. Arm sling as instructed. Left arm activities only until released by Dr. Good. Follow-up with Dr. Good within the next 7 days for recheck. Call tomorrow morning for appointment time. Return to the emergency department for worsened symptoms or any other concerns. Scripts Sulfamethoxazole/Trimethoprim (Bactrim Ds Tablet) 1 Each Tablet 1 EACH PO BID, #20 TAB 0 Refills Prov: HERLINDA PINZON 01/26/18 Hydrocodone/Acetaminophen (Hydrocodone-Acetamin 5-325 mg) 1 Each Tablet 1 EACH PO Q6H PRN for pain, #14 TAB 0 Refills Prov: HERLINDA PINZON 01/26/18 HERLINDA PINZON January 26, 2018 15:35
[2018-01-26] MEDS ORDERED: HYDROcodone/APAP 5 MG/325 MG (LORTAB) TAB PO STA (15:40)
--- NOTE | 2018-01-26 15:54 | Diagnostic Imaging Report ---
INDICATION: Pain. FINDINGS: There is a fracture of the distal fifth metacarpal. The distal fracture fragment is angled volarly. There is no other fracture or dislocation. The soft tissues are unremarkable. IMPRESSION: Slightly displaced fracture of the distal fifth metacarpal. Dictated by: Dictated on workstation # [id number]
[2018-01-26] MEDS ORDERED: HYDR-3812 PO (16:38)
[2018-01-26] MEDS ORDERED: SULF1TAB35 PO (16:38)
[2018-01-26 17:24] VITALS: BP 125/90
== END 2018-01-26 17:24 | disposition home or self-care (01) ==
LOC: EDUNIT# 14:53 → ER 14:57
DX: S62.396A Other fracture of fifth metacarpal bone, right hand, initial encounter for closed fracture (principal); L02.811 Cutaneous abscess of head [any part, except face]; F17.210 Nicotine dependence, cigarettes, uncomplicated; W22.09XA Striking against other stationary object, initial encounter
CPT/HCPCS: 29125; 73130

== ENCOUNTER 2018-04-06 21:53 | Emergency (ER) | payer MEDICAID ==
[~2018-04-06] VITALS: Ht 172.7 cm; Wt 63.5 kg
[~2018-04-06 21:53] MED LIST changes: +HYDR-3812 PO
[2018-04-06] MEDS ORDERED: KETOROLAC 30 MG/ML VIAL IVP STA (22:14)
[2018-04-06] MEDS ORDERED: LACTATED RINGERS 1,000 ML IV ONE (22:14)
--- NOTE | 2018-04-06 22:17 | ED GU-Male ---
General Chief Complaint: -Male Stated Complaint: BLOOD IN URINE Nursing Triage Note: PT PRESENTS TO ER WITH COMPLAINT OF BLOOD IN URINE FOR FOUR DAYS. Source: patient History of Present Illness Date Seen by Provider: Apr 06, 2018 Time Seen by Provider: 22:05 Initial Comments PT ARRIVES VIA POV--STATES HE WALKED HERE STATES SHE HAS BEEN "PEEING BLOOD" FOR THE LAST 4 DAYS NO ACTUAL BURNING ON URINATION HAS HAD LEFT FLANK PAIN OFF AND ON NO FEVER NO NAUSEA/VOMITING NO INJURY NO PRIOR HISTORY OF SIMILAR HAS NOT TAKEN ANYTHING FOR SYMPTOMS SYMPTOMS NO DIFFERENT TODAY HAS NOT SOUGHT CARE UNTIL TODAY PCP: KEITH Allergies and Home Medications Allergies Coded Allergies: No Known Drug Allergies (Unverified , 11/19/12) Home Medications Hydrocodone/Acetaminophen 1 Each Tablet, 1 EACH PO Q6H PRN for pain Prescribed by: HERLINDA PINZON on 01/26/18 1638 Hydrocodone/Ibuprofen 1 Each Tablet, 1 EACH PO Q 4 HOURS Prescribed by: ROLAN CARDONA on 04/06/18 225 Sulfamethoxazole/Trimethoprim 1 Each Tablet, 1 EACH PO BID Prescribed by: HERNANDO BROWN on 08/02/17 1303 Sulfamethoxazole/Trimethoprim 1 Each Tablet, 1 EACH PO BID Prescribed by: MARIANN MCDONALD on 12/18/17 2202 Sulfamethoxazole/Trimethoprim 1 Each Tablet, 1 EACH PO BID Prescribed by: HERNANDO BROWN on 01/24/18 0340 Sulfamethoxazole/Trimethoprim 1 Each Tablet, 1 EACH PO BID Prescribed by: HERLINDA PINZON on 01/26/18 1638 Sulfamethoxazole/Trimethoprim 1 Each Tablet, 1 EACH PO BID Prescribed by: ROLAN CARDONA on 04/06/18 225 Tamsulosin HCl 0.4 Mg Cap, 0.4 MG PO DAILY Prescribed by: ROLAN CARDONA on 04/06/18 225 Patient Home Medication List Home Medication List Reviewed: Yes Review of Systems Constitutional: no symptoms reported Respiratory: no symptoms reported Gastrointestinal: see HPI (FLANK PAIN ) Genitourinary: see HPI, flank pain, hematuria Musculoskeletal: see HPI, back pain Skin: no symptoms reported Psychiatric/Neurological: No Symptoms Reported Endocrine: No Symptoms Reported Hematologic/Lymphatic: No Symptoms Reported Past Xwmyixh-Qpgnwl-Hwncic Hx Patient Social History Alcohol Use: Past History (STATES HE USED TO DRINK "ALOT" BUT CLAIMS "NONE FOR YEARS" PER PT ON 04/06/18) Recreational Drug Use: Yes (THC PER PT ON 04/06/18, UDS + FOR AMP/ METH AMPHETAMINES ON 04/06/18) Drug of Choice: THC, UDS + FOR AMPHETAMINES/METHAMPHETAMINES 04/06/18 Smoking Status: Current Everyday Smoker (1 PPD) Type Used: Cigarettes 2nd Hand Smoke Exposure: Yes Recent Foreign Travel: No Contact w/Someone Who Travel: No Recent Infectious Disease Expo: No Recent Hopitalizations: No Immunizations Up To Date Tetanus Booster (TDap): Less than 5yrs Seasonal Allergies Seasonal Allergies: No Past Medical History Surgeries: Yes (BMT'S) Ear Surgery Respiratory: No Cardiac: No Neurological: No Reproductive Disorders: No Genitourinary: No Gastrointestinal: No Musculoskeletal: No Endocrine: No HEENT: No Cancer: No Psychosocial: No Integumentary: Yes (MRSA ABSCESS HX,) Blood Disorders: No Family Medical History No Pertinent Family Hx Physical Exam Vital Signs Vital Signs - First Documented 04/06/18 22:01 Temp 98.3 Pulse 80 Resp 20 B/P (MAP) 125/78 (94) Pulse Ox 99 O2 Delivery Room Air Capillary Refill : Less Than 3 Seconds Height, Weight, BMI Height: 5'8.00" Weight: 140lbs. oz. 63.305245fq; 15.40 BMI Method:Stated General Appearance: thin, other (FLAT AFFECT, WALKS UPRIGHT AND MOVES WITHOUT DIFFICULTY, DOES NOT APPEAR TO BE IN ANY DISCOMFORT WHATSOEVER. HAS MUSIC ON PHONE TURNED UP LOUD, AND REFUSES TO TURN IT OFF DURING HISTORY AND EXAM. DOES NOT APPEAR TO BE IN ANY DISCOMFORT WHATSOEVER. THIN, MALODOROUS, DIRTY. ) HEENT: PERRL/EOMI Cardiovascular: regular rate, rhythm, no murmur Respiratory: normal breath sounds, no respiratory distress Gastrointestinal: normal bowel sounds, soft Extremities: normal inspection, no pedal edema, no calf tenderness, normal capillary refill Neurologic/Psychiatric: customer marketing intern II-XII nml as tested, no motor/sensory deficits, alert, oriented x 3 Skin: normal color, tattoos/piercings (MULTIPLE TATTOOS), other (SORES/SCABS/ SCARS TO FACE AND ARMS. ) Progress/Results/Core Measures Suspected Sepsis Recent Fever Within 48 Hours: No Infection Criteria Present: None New/Unexplained Altered Menta: No Sepsis Screen: No Definite Risk SIRS Temperature:98.3 Pulse: 80 Respiratory Rate: 20 Laboratory Tests 04/06/18 22:34: White Blood Count 8.9 Blood Pressure 125 /78 Mean: 94 Laboratory Tests 04/06/18 22:34: Creatinine 1.04, INR Comment 1.1, Platelet Count 334, Total Bilirubin 0.6 Results/Orders Lab Results Laboratory Tests Test 04/06/18 22:25 04/06/18 22:34 Range/Units Urine Color RED H Urine Clarity VERY CLOUDY H Urine pH 6.5 5-9 Urine Specific [place] 1.020 1.016-1.022 Urine Protein 3+ H NEGATIVE Urine Glucose (UA) NEGATIVE NEGATIVE Urine Ketones NEGATIVE NEGATIVE Urine Nitrite POSITIVE H NEGATIVE Urine Bilirubin NEGATIVE NEGATIVE Urine Urobilinogen 1 NORMAL MG/DL Urine Leukocyte Esterase 2+ H NEGATIVE Urine RBC (Auto) 5+ H NEGATIVE Urine RBC TNTC H /HPF Urine WBC 10-25 H /HPF Urine Crystals NONE /LPF Urine Bacteria TRACE /HPF Urine Casts NONE /LPF Urine Mucus NEGATIVE /LPF Urine Culture Indicated YES Urine Opiates Screen NEGATIVE NEGATIVE Urine Oxycodone Screen NEGATIVE NEGATIVE Urine Methadone Screen NEGATIVE NEGATIVE Urine Propoxyphene Screen NEGATIVE NEGATIVE Urine Barbiturates Screen NEGATIVE NEGATIVE Ur Tricyclic Antidepressants Screen NEGATIVE NEGATIVE Urine Phencyclidine Screen NEGATIVE NEGATIVE Urine Amphetamines Screen POSITIVE H NEGATIVE Urine Methamphetamines Screen POSITIVE H NEGATIVE Urine Benzodiazepines Screen NEGATIVE NEGATIVE Urine Cocaine Screen NEGATIVE NEGATIVE Urine Cannabinoids Screen NEGATIVE NEGATIVE White Blood Count 8.9 4.3-11.0 10^3/uL Red Blood Count 4.72 4.35-5.85 10^6/uL Hemoglobin 14.2 13.3-17.7 G/DL Hematocrit 43 40-54 % Mean Corpuscular Volume 92 80-99 FL Mean Corpuscular Hemoglobin 30 25-34 PG Mean Corpuscular Hemoglobin Concent 33 32-36 G/DL Red Cell Distribution Width 14.6 H 10.0-14.5 % Platelet Count 334 130-400 10^3/uL Mean Platelet Volume 9.7 7.4-10.4 FL Neutrophils (%) (Auto) 66 42-75 % Lymphocytes (%) (Auto) 23 12-44 % Monocytes (%) (Auto) 8 0-12 % Eosinophils (%) (Auto) 3 0-10 % Basophils (%) (Auto) 1 0-10 % Neutrophils # (Auto) 5.8 1.8-7.8 X 10^3 Lymphocytes # (Auto) 2.1 1.0-4.0 X 10^3 Monocytes # (Auto) 0.7 0.0-1.0 X 10^3 Eosinophils # (Auto) 0.3 0.0-0.3 10^3/uL Basophils # (Auto) 0.0 0.0-0.1 10^3/uL Prothrombin Time 14.0 12.2-14.7 SEC INR Comment 1.1 0.8-1.4 Activated Partial Thromboplast Time 31 24-35 SEC Sodium Level 139 135-145 MMOL/L Potassium Level 3.9 3.6-5.0 MMOL/L Chloride Level 102 98-107 MMOL/L Carbon Dioxide Level 26 21-32 MMOL/L Anion Gap 11 5-14 MMOL/L Blood Urea Nitrogen 16 7-18 MG/DL Creatinine 1.04 0.60-1.30 MG/DL Estimat Glomerular Filtration Rate > 60 BUN/Creatinine Ratio 15 Glucose Level 89 70-105 MG/DL Calcium Level 9.9 8.5-10.1 MG/DL Total Bilirubin 0.6 0.1-1.0 MG/DL Aspartate Amino Transf (AST/SGOT) 23 5-34 U/L Alanine Aminotransferase (ALT/SGPT) 22 0-55 U/L Alkaline Phosphatase 73 40-136 U/L Total Protein 8.1 6.4-8.2 GM/DL Albumin 4.8 H 3.2-4.5 GM/DL Serum Alcohol < 10 <10 MG/DL My Orders Orders - ROLAN CARDONA DO Cbc With Automated Diff (04/06/18 22:08) Comprehensive Metabolic Panel (04/06/18 22:08) Protime With Inr (04/06/18 22:08) Partial Thromboplastin Time (04/06/18 22:08) Ua Culture If Indicated (04/06/18 22:08) Saline Lock/Iv-Start (04/06/18 22:08) Alcohol (04/06/18 22:14) Drug Screen Stat (Urine) (04/06/18 22:14) Abdomen/Kub 1view (04/06/18 22:14) Ct Abd/Pelvis Wo(Kidney Stone) (04/06/18 22:14) Saline Lock/Iv-Start (04/06/18 22:14) Lactated Ringers (Lr 1000 Ml Iv Solution (04/06/18 22:14) Ketorolac Injection (Toradol Injection) (04/06/18 22:14) Rx-Hydrocodone/Apap 5-325 Mg (Rx-Vicodin (04/06/18 23:00) Rx-Trimeth/Sulfameth Ds Tab (Rx-Bactrim/ (04/06/18 22:56) Alfuzosin (Not Stocked) (Uroxatral (Not (04/06/18 23:00) Urine Culture (04/06/18 22:25) Medications Given in ED Current Medications Medications Dose Ordered Sig/Shayan Route Start Time Stop Time Status Last Admin Dose Admin Lactated Ringer's 1,000 ml @ 0 mls/hr Q0M ONCE IV 04/06/18 22:14 04/06/18 22:16 DC 04/06/18 22:40 1,000 MLS/HR Vital Signs/I&O 04/06/18 22:01 Temp 98.3 Pulse 80 Resp 20 B/P (MAP) 125/78 (94) Pulse Ox 99 O2 Delivery Room Air Capillary Refill : Less Than 3 Seconds Blood Pressure Mean: 94 Progress Note : Progress Note UNEVENTFUL ER STAY Diagnostic Imaging Comments CT ABDOMEN/PELVIS--6.5 X 7.5 MM LEFT UPJ STONE WITH MILD LEFT PELVOCALIECTASIS. 1-2 MM NON-OBSTRUCTING LOWER POLE OF RIGHT KIDNEY--PER [facility] VIA FAX @ 3846 KUB--NO ACUTE PROCESS, PENDING RADIOLOGIST REVIEW Reviewed: Reviewed by Me Departure Impression Primary Impression: Left ureteral calculus Additional Impressions: Obstruction of left ureteropelvic junction (UPJ) due to stone Urinary tract infection Illicit drug use Disposition: HOME, SELF-CARE Condition: Stable Departure-Patient Inst. Referrals: ZENIA HUTCHINS MD [facility] Patient Instructions: Kidney Stones (DC), Urinary Tract Infection, Adult (DC) Add. Discharge Instructions: LOTS OF CLEAR LIQUIDS STRAIN ALL URINE--RETURN ANY STONES TO 'S OFFICE FOLLOW UP WITH DR. HUTCHINS THIS WEEK--CALL IN AM FOR APPOINTMENT All discharge instructions reviewed with patient and/or family. Voiced understanding. Scripts Hydrocodone/Ibuprofen (Hydrocodone-Ibuprofen 5-200 mg) 1 Each Tablet 1 EACH PO Q 4 HOURS for Pain, #20 TAB Prov: ROLAN CARDONA DO 04/06/18 Tamsulosin HCl (Flomax) 0.4 Mg Cap 0.4 MG PO DAILY, #10 CAP Prov: ROLAN CARDONA DO 04/06/18 Sulfamethoxazole/Trimethoprim (Bactrim Ds Tablet) 1 Each Tablet 1 EACH PO BID, #20 TAB Prov: ROLAN CARDONA DO 04/06/18 ROLAN CARDONA DO Apr 06, 2018 22:17
[2018-04-06 22:42] LABS: BILIRUBIN,URINE NEGATIVE (NEGATIVE); CLARITY,URINE VERY CLOUDY; COLOR,URINE RED; GLUCOSE, URINE (UA) NEGATIVE (NEGATIVE); KETONES,URINE NEGATIVE (NEGATIVE); LEUKOCYTE ESTERASE ,URINE 2+ (NEGATIVE); NITRITE,URINE POSITIVE (NEGATIVE); PH,URINE 6.5 (5-9); PROTEIN,URINE 3+ (NEGATIVE); UROBILINOGEN,URINE 1 MG/DL (NORMAL)
[2018-04-06 22:42] LABS: BASOPHILS % (AUTO) 1 % (0-10); EOSINOPHILS # (AUTO) 0.3 10^3/uL (0.0-0.3); EOSINOPHILS % (AUTO) 3 % (0-10); HEMATOCRIT 43 % (40-54); HEMOGLOBIN 14.2 G/DL (13.3-17.7); LYMPHOCYTES # (AUTO) 2.1 X 10^3 (1.0-4.0); LYMPHOCYTES % (AUTO) 23 % (12-44); MEAN CORPUSCULAR HEMOGLOBIN 30 PG (25-34); MEAN CORPUSCULAR HGB CONC 33 G/DL (32-36); MEAN CORPUSCULAR VOLUME 92 FL (80-99); MEAN PLATELET VOLUME 9.7 FL (7.4-10.4); MONOCYTES # (AUTO) 0.7 X 10^3 (0.0-1.0); MONOCYTES % (AUTO) 8 % (0-12); NEUTROPHILS # (AUTO) 5.8 X 10^3 (1.8-7.8); NEUTROPHILS % (AUTO) 66 % (42-75); PLATELET COUNT 334 10^3/uL (130-400); RED BLOOD COUNT 4.72 10^6/uL (4.35-5.85); RED CELL DISTRIBUTION WIDTH 14.6 % (10.0-14.5); WHITE BLOOD COUNT 8.9 10^3/uL (4.3-11.0)
[2018-04-06] MEDS ORDERED: SULF1TAB35 PO (22:56)
[2018-04-06] MEDS ORDERED: RX-TRIMETH/SULFA. 160-800 MG (BACTRIM DS) TAB PPK#2 PO STA (22:56)
[2018-04-06] MEDS ORDERED: TAMS0.4C98 PO (22:56)
[2018-04-06] MEDS ORDERED: HYDR-3990 PO (22:56)
[2018-04-06 22:57] LABS: BACTERIA,URINE TRACE /HPF; RBC,URINE TNTC /HPF
[2018-04-06 22:58] LABS: AMPHETAMINE SCREEN, URINE POSITIVE (NEGATIVE); BARBITURATE SCREEN URINE NEGATIVE (NEGATIVE); BENZODIAZEPINES SCREEN URINE NEGATIVE (NEGATIVE); CANNABINOID SCREEN, URINE NEGATIVE (NEGATIVE); COCAINE SCREEN URINE NEGATIVE (NEGATIVE); METHADONE STAT NEGATIVE (NEGATIVE); METHAMPHETAMINE SCREEN URINE S POSITIVE (NEGATIVE); OPIATE SCREEN URINE NEGATIVE (NEGATIVE); OXYCODONE STAT NEGATIVE (NEGATIVE); PROPOXYPHENE STAT NEGATIVE (NEGATIVE); TRICYCLIC ANTIDEPRESSANTS SCRE NEGATIVE (NEGATIVE)
[2018-04-06 22:59] LABS: INR 1.1 (0.8-1.4)
[2018-04-06] MEDS ORDERED: RX-HYDROCODONE/APAP 5/325 MG #4 TAB PK PO PRN (23:00)
[2018-04-06] MEDS ORDERED: ALFUZOSIN HCL 10 MG TAB (UROXATRAL) PO SCH (23:00)
[2018-04-06 23:03] LABS: ALANINE AMINOTRANSFERASE 22 U/L (0-55); ALBUMIN 4.8 GM/DL (3.2-4.5); ALKALINE PHOSPHATASE 73 U/L (40-136); BILIRUBIN,TOTAL 0.6 MG/DL (0.1-1.0); BUN/CREATININE RATIO 15; CALCIUM 9.9 MG/DL (8.5-10.1); CARBON DIOXIDE 26 MMOL/L (21-32); CHLORIDE 102 MMOL/L (98-107); CREATININE SERUM 1.04 MG/DL (0.60-1.30); GFR ESTIMATED > 60; GLUCOSE 89 MG/DL (70-105); POTASSIUM 3.9 MMOL/L (3.6-5.0); SODIUM 139 MMOL/L (135-145); TOTAL PROTEIN 8.1 GM/DL (6.4-8.2)
[2018-04-06] MEDS ORDERED: ALFUZOSIN HCL 10 MG TAB (UROXATRAL) PO ONE (23:19)
[2018-04-06] MEDS ORDERED: RX-HYDROCODONE/APAP 5/325 MG #4 TAB PK PO ONE (23:19)
[2018-04-06] MEDS ORDERED: RX-TRIMETH/SULFA. 160-800 MG (BACTRIM DS) TAB PPK#2 PO ONE (23:19)
[2018-04-06 23:24] VITALS: BP 125/78
--- OUTSIDE RECORDS SUMMARY | 2018-04-07 00:24 | XMS REPORT ---
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 Name Role Phone ADELIA LEIVA Unavailable PROBLEMS Unknown Problems ALLERGIES No Known Allergies ENCOUNTERS Encounter Location Date Diagnosis [facility] [place] [id number] [place] [phone] Feb, Closed fracture of right hand with routine healing, subsequent encounter S62.91XD [facility] [id number] [place] [phone] January, [facility] [address] [id number] Nov, Dental examination Z01.20 and Dental caries K02.[address] [place] [id number] [place] [phone] Jun, Hospital discharge follow-up Z09 and Closed nondisplaced fracture of proximal phalanx of right great toe with routine healing, subsequent encounter S92.414D [place] [id number] [place] [phone] Feb, MRSA (methicillin resistant Staphylococcus aureus) infection A49.02 [facility] [place] [id number] [place] [phone] Jul, Unspecified injury of left wrist, hand and finger(s), subsequent encounter S69.92XD [facility] [id number] [place] [id number] Mar, Dental examination V72.2 [place] [id number] [place] [phone] Dec, 2014 [facility] [place] [address] [phone] Dec, [facility] [place] [address] [address] Oct, [facility] [place] [address] [address] Oct, 2014 [facility] [place] [address] [address] Oct, 2014 [facility] [place] [id number] [place] [phone] Oct, 2014 [facility] [place] [id number] [place] [phone] Oct, 2014 [facility] [place] [id number] [place] [phone] Aug, [facility] [place] [id number] [place] [phone] Aug, [facility] [place] [address] [address] Aug, [facility] [place] [id number] [place] [phone] Aug, [facility] [place] [address] [address] Aug, [facility] [place] [address] [address] Aug, [facility] [place] [address] [address] Aug, [facility] [place] [id number] [place] [address] Aug, [facility] [place] [address] [address] Dec, IMMUNIZATIONS No Known Immunizations SOCIAL HISTORY Never Assessed REASON FOR VISIT NÉSTOR PLAN OF CARE Activity Details Follow Up prn Reason:PAPO or Ext #14 VITAL SIGNS Height 72 in 2017-11-05 Blood pressure systolic 147 mmHg 2017-11-05 Blood pressure diastolic 96 mmHg 2017-11-05 MEDICATIONS Medication Instructions Dosage Frequency Start Date End Date Duration Status Hydrocodone-Acetaminophen 5-325 MG Orally every 6 hrs 1 tablet as needed 6h Not-Taking Bactrim 400-80 MG Orally 2 times a day 1 tablet 12h 10 days Not- Taking amitriptyline 25 mg take 1 tablet by Oral route 1 time per day at bedtimevoucher this fill. Dec, Not-Taking RESULTS No Results PROCEDURES Procedure Date Ordered Result Body Site LTD ORAL EVALUATION - PROBLEM FOCUS November 05, 2017 INTRAORL-PERIAPICAL 1 FILM 37549 November 05, 2017 EXTRAC ERUPTED TOOTH/EXPOSED ROOT November 05, 2017 INSTRUCTIONS MEDICATIONS ADMINISTERED No Known Medications MEDICAL (GENERAL) HISTORY Type Description Date Medical History Adjustment disorder with mixed disturbance of emotions and conduct Medical History Other psoriasis
--- NOTE | 2018-04-07 06:14 | Diagnostic Imaging Report ---
PROCEDURE: CT urinary tract, rule out kidney stone. TECHNIQUE: Multiple contiguous axial images were obtained through the abdomen and pelvis without the use of intravenous contrast. INDICATION: Hematuria Unenhanced images of the liver and spleen reveal no focal abnormality. No gallbladder, pancreatic or adrenal gland abnormality is seen. There is mild left hydronephrosis with an approximately 0.6 x 0.7 cm calculus at the left ureteropelvic junction. Faint calcification is also seen in the lower pole of the right kidney without hydronephrosis. No definite ureteric stone is seen. There is no evidence of free fluid in the abdomen or pelvis. IMPRESSION: At least partially obstructing 0.7 cm left ureteropelvic junction with minimal calcification also noted in the lower pole of the right kidney. No other acute abnormality is detected. Dictated by: Dictated on workstation # [id number]
--- NOTE | 2018-04-07 07:47 | Diagnostic Imaging Report ---
Indication: Hematuria Overall bowel gas pattern is within normal limits. There is mild to moderate amount of stool throughout the colon. This does limit evaluation for urinary tract calcification. No definite stone is identified. There is no evidence of free intraperitoneal gas or pneumatosis. Impression: Mild to moderate amount of stool throughout the colon limits evaluation for renal calculi. No definite stone is seen. Dictated by: Dictated on workstation # [id number]
== END 2018-04-06 23:24 | disposition home or self-care (01) ==
LOC: EDUNIT# 21:53 → ER 21:55
DX: N20.1 Calculus of ureter (principal); N13.5 Crossing vessel and stricture of ureter without hydronephrosis; N39.0 Urinary tract infection, site not specified; F12.10 Cannabis abuse, uncomplicated; F15.10 Other stimulant abuse, uncomplicated; F17.210 Nicotine dependence, cigarettes, uncomplicated; Z86.14 Personal history of Methicillin resistant Staphylococcus aureus infection
CPT/HCPCS: 36415; 74018; 74176; 80053; 80306; 80320; 81000; 85025; 85610; 85730; 87088; 96361; 96374

== ENCOUNTER 2018-04-09 19:59 | Emergency (ER) | payer MEDICAID ==
[~2018-04-09] VITALS: Ht 172.7 cm; Wt 63.5 kg
[~2018-04-09 19:59] MED LIST changes: +HYDR-3990 PO; +TAMS0.4C98 PO
--- NOTE | 2018-04-09 20:38 | ED General ---
General Chief Complaint: General Problems/Pain Stated Complaint: KIDNEY STONE/PRESCRIPTIONS CONFISCATED Source of Information: Patient Exam Limitations: No Limitations History of Present Illness Date Seen by Provider: Apr 09, 2018 Time Seen by Provider: 20:35 Initial Comments Patient is a 38-year-old male who presents to the emergency room with complaints of kidney stone and need for his prescription to be refilled. He reports that on 04/06/18 he was seen in this emergency room and treated for a kidney stone given, Flomax, hydrocodone, and Bactrim. He reports that he was incarcerated on 04/07/18 and was released today and his hydrocodone was missing when he returned home. He reports that he does have his Bactrim and Flomax prescription. Associated Systoms: Denies Symptoms Allergies and Home Medications Allergies Coded Allergies: No Known Drug Allergies (Unverified , 11/19/12) Home Medications Hydrocodone/Acetaminophen 1 Each Tablet, 1 EACH PO Q6H PRN for pain Prescribed by: HERLINDA PINZON on 01/26/18 1638 Hydrocodone/Ibuprofen 1 Each Tablet, 1 EACH PO Q 4 HOURS Prescribed by: ROLAN CARDONA on 04/06/18 2256 Sulfamethoxazole/Trimethoprim 1 Each Tablet, 1 EACH PO BID Prescribed by: HERNANDO BROWN on 08/02/17 1303 Sulfamethoxazole/Trimethoprim 1 Each Tablet, 1 EACH PO BID Prescribed by: MARIANN MCDONALD on 12/18/17 2202 Sulfamethoxazole/Trimethoprim 1 Each Tablet, 1 EACH PO BID Prescribed by: HERNANDO BROWN on 01/24/18 0340 Sulfamethoxazole/Trimethoprim 1 Each Tablet, 1 EACH PO BID Prescribed by: HERLINDA PINZON on 01/26/18 1638 Sulfamethoxazole/Trimethoprim 1 Each Tablet, 1 EACH PO BID Prescribed by: ROLAN CARDONA on 04/06/18 225 Tamsulosin HCl 0.4 Mg Cap, 0.4 MG PO DAILY Prescribed by: ROLAN CARDONA on 04/06/18 225 Patient Home Medication List Home Medication List Reviewed: Yes Review of Systems Constitutional: see HPI; No chills, No fever Genitourinary: hematuria, other (kidney stone) Past Yrbklww-Rzgnis-Zacbte Hx Past Med/Social Hx: Reviewed Nursing Past Med/Soc Hx Patient Social History Alcohol Use: Past History Recreational Drug Use: Yes Drug of Choice: THC, UDS + FOR AMPHETAMINES/METHAMPHETAMINES 04/06/18 Type Used: Cigarettes 2nd Hand Smoke Exposure: Yes Recent Foreign Travel: No Contact w/Someone Who Travel: No Recent Hopitalizations: No Immunizations Up To Date Tetanus Booster (TDap): Less than 5yrs Seasonal Allergies Seasonal Allergies: No Past Medical History Surgeries: Yes (BMT'S) Ear Surgery Respiratory: No Cardiac: No Neurological: No Reproductive Disorders: No Sexually Transmitted Disease: No Genitourinary: No Gastrointestinal: No Musculoskeletal: No Endocrine: No HEENT: No Cancer: No Psychosocial: No Integumentary: Yes (MRSA ABSCESS HX,) Blood Disorders: No Family Medical History Reviewed Nursing Family Hx No Pertinent Family Hx Physical Exam Vital Signs Vital Signs - First Documented 04/09/18 20:07 Temp 98.8 Pulse 92 Resp 20 B/P (MAP) 132/76 (94) Pulse Ox 99 O2 Delivery Room Air Capillary Refill : Height, Weight, BMI Height: 5'8.00" Weight: 140lbs. oz. 63.965814wc; 15.40 BMI Method:Stated General Appearance: No Apparent Distress, WD/WN Respiratory: Chest Non Tender, Lungs Clear, Normal Breath Sounds, No Accessory Muscle Use, No Respiratory Distress Cardiovascular: Regular Rate, Rhythm, No Edema, No Gallop, No JVD, No Murmur, Normal Peripheral Pulses Gastrointestinal: Normal Bowel Sounds, No Organomegaly, No Pulsatile Mass, Non Tender, Soft Back: Normal Inspection, No CVA Tenderness, No Vertebral Tenderness Neurologic/Psychiatric: Alert, Oriented x3, Normal Mood/Affect Skin: Normal Color, Warm/Dry Progress/Results/Core Measures Suspected Sepsis SIRS Temperature: Pulse: Respiratory Rate: Blood Pressure / Mean: Results/Orders Lab Results My Orders Vital Signs/I&O Capillary Refill : Progress Note : Progress Note I have seen and evaluated the patient. I informed patient that I will not be refilling his hydrocodone prescriptions. He was advised to take ibuprofen and Tylenol for pain and follow up with Dr. Hutchins as scheduled. The patient refused his Toradol shot prior to discharge. Diagnostic Imaging Diagonstic Imaging: Xray Comments NAME: RITU ORLANDO MED REC#: [id number] PT STATUS: REG ER : 1980 PHYSICIAN: FRANCIS OTERO ADMIT DATE: 04/09/18/ER Signed Date of Exam: 04/09/18 ABDOMEN/KUB 1VIEW PATIENT HISTORY: Abdominal pain, history of kidney stone. TECHNIQUE: Supine frontal views of the abdomen COMPARISON: 04/06/2018 FINDINGS: The bowel loops are nondistended without evidence of obstruction. There is moderate stool in the colon. No large collection of free air is seen. The left kidney projects over the stomach, and no definitive stone is seen. No acute osseous abnormality is seen. IMPRESSION: 1. No definite renal calculus is seen, although CT is more sensitive for evaluation, particularly given the overlying bowel gas. 2. Moderate stool in the colon. Dictated by: Dictated on workstation # [id number] Dict: 04/09/182114 Trans: 04/09/182127 Interpreted by: ADELIA AMOS MD Electronically signed by: ADELIA AMOS MD 04/09/182127 Reviewed: Reviewed by Me Departure Impression Primary Impression: Kidney stone Disposition: 01 HOME, SELF-CARE Condition: Stable/Unchanged Departure-Patient Inst. Decision time for Depature: 21:29 Referrals: NO,LOCAL PHYSICIAN (PCP) Primary Care Physician ZENIA HUTCHINS MD Patient Instructions: Kidney Stones (DC) Add. Discharge Instructions: Continue all previously prescribed medications. You may use ibuprofen and Tylenol for additional pain relief. Follow up with Dr. Hutchins within 1 week for recheck. Call first thing Thursday morning for an appointment time. Return back to the emergency room for any worsening symptoms or any other concerns as needed. All discharge instructions reviewed with patient and/or family. Voiced understanding. FRANCIS OTERO Apr 09, 2018 20:38
[2018-04-09 21:07] LABS: BASOPHILS % (AUTO) 0 % (0-10); EOSINOPHILS # (AUTO) 0.2 10^3/uL (0.0-0.3); EOSINOPHILS % (AUTO) 2 % (0-10); HEMATOCRIT 43 % (40-54); HEMOGLOBIN 14.6 G/DL (13.3-17.7); LYMPHOCYTES # (AUTO) 1.7 X 10^3 (1.0-4.0); LYMPHOCYTES % (AUTO) 20 % (12-44); MEAN CORPUSCULAR HEMOGLOBIN 32 PG (25-34); MEAN CORPUSCULAR HGB CONC 34 G/DL (32-36); MEAN CORPUSCULAR VOLUME 92 FL (80-99); MEAN PLATELET VOLUME 9.5 FL (7.4-10.4); MONOCYTES # (AUTO) 0.8 X 10^3 (0.0-1.0); MONOCYTES % (AUTO) 9 % (0-12); NEUTROPHILS # (AUTO) 6.2 X 10^3 (1.8-7.8); NEUTROPHILS % (AUTO) 70 % (42-75); PLATELET COUNT 279 10^3/uL (130-400); RED BLOOD COUNT 4.62 10^6/uL (4.35-5.85); RED CELL DISTRIBUTION WIDTH 14.3 % (10.0-14.5); WHITE BLOOD COUNT 8.8 10^3/uL (4.3-11.0)
--- NOTE | 2018-04-09 21:21 | Diagnostic Imaging Report ---
PATIENT HISTORY: Abdominal pain, history of kidney stone. TECHNIQUE: Supine frontal views of the abdomen COMPARISON: 04/06/2018 FINDINGS: The bowel loops are nondistended without evidence of obstruction. There is moderate stool in the colon. No large collection of free air is seen. The left kidney projects over the stomach, and no definitive stone is seen. No acute osseous abnormality is seen. IMPRESSION: 1. No definite renal calculus is seen, although CT is more sensitive for evaluation, particularly given the overlying bowel gas. 2. Moderate stool in the colon. Dictated by: Dictated on workstation # [id number]
[2018-04-09 21:24] LABS: ALANINE AMINOTRANSFERASE 16 U/L (0-55); ALBUMIN 4.3 GM/DL (3.2-4.5); ALKALINE PHOSPHATASE 71 U/L (40-136); BILIRUBIN,TOTAL 0.4 MG/DL (0.1-1.0); BUN/CREATININE RATIO 13; CALCIUM 9.8 MG/DL (8.5-10.1); CARBON DIOXIDE 28 MMOL/L (21-32); CHLORIDE 103 MMOL/L (98-107); CREATININE SERUM 0.94 MG/DL (0.60-1.30); GFR ESTIMATED > 60; GLUCOSE 93 MG/DL (70-105); POTASSIUM 4.8 MMOL/L (3.6-5.0); SODIUM 138 MMOL/L (135-145); TOTAL PROTEIN 7.5 GM/DL (6.4-8.2)
[2018-04-09] MEDS: KETOROLAC 60 MG/2 ML VIAL IM ONE ×2 (21:40→21:42)
[2018-04-09 21:43] VITALS: BP 132/76
== END 2018-04-09 21:43 | disposition home or self-care (01) ==
LOC: EDUNIT# 19:59 → ER 20:00
DX: N20.0 Calculus of kidney (principal); F12.10 Cannabis abuse, uncomplicated; F15.10 Other stimulant abuse, uncomplicated; Z77.22 Contact with and (suspected) exposure to environmental tobacco smoke (acute) (chronic); Z86.14 Personal history of Methicillin resistant Staphylococcus aureus infection
CPT/HCPCS: 36415; 74018; 80053; 85025

== ENCOUNTER 2018-04-17 07:37 | Emergency (ER) | payer MEDICAID ==
[~2018-04-17] VITALS: Ht 172.7 cm; Wt 59.0 kg
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
[2018-04-17] MEDS ORDERED: NS IV 1000 ML 1,000 ML IV ONE (08:24)
[2018-04-17] MEDS ORDERED: KETOROLAC 30 MG/ML VIAL IVP STA (08:24)
[2018-04-17 09:00] LABS: BASOPHILS % (AUTO) 0 % (0-10); EOSINOPHILS # (AUTO) 0.3 10^3/uL (0.0-0.3); EOSINOPHILS % (AUTO) 3 % (0-10); HEMATOCRIT 45 % (40-54); LYMPHOCYTES % (AUTO) 21 % (12-44); MEAN CORPUSCULAR HEMOGLOBIN 31 PG (25-34); MEAN CORPUSCULAR HGB CONC 33 G/DL (32-36); MEAN CORPUSCULAR VOLUME 93 FL (80-99); MEAN PLATELET VOLUME 9.6 FL (7.4-10.4); MONOCYTES # (AUTO) 0.8 X 10^3 (0.0-1.0); MONOCYTES % (AUTO) 8 % (0-12); NEUTROPHILS # (AUTO) 6.7 X 10^3 (1.8-7.8); NEUTROPHILS % (AUTO) 68 % (42-75); PLATELET COUNT 319 10^3/uL (130-400); RED BLOOD COUNT 4.87 10^6/uL (4.35-5.85); RED CELL DISTRIBUTION WIDTH 14.4 % (10.0-14.5); WHITE BLOOD COUNT 9.8 10^3/uL (4.3-11.0)
[2018-04-17 09:02] LABS: BILIRUBIN,URINE NEGATIVE (NEGATIVE); CLARITY,URINE VERY CLOUDY; COLOR,URINE YELLOW; GLUCOSE, URINE (UA) NEGATIVE (NEGATIVE); KETONES,URINE NEGATIVE (NEGATIVE); LEUKOCYTE ESTERASE ,URINE 2+ (NEGATIVE); NITRITE,URINE POSITIVE (NEGATIVE); PH,URINE 5 (5-9); PROTEIN,URINE 3+ (NEGATIVE); UROBILINOGEN,URINE 1 MG/DL (NORMAL)
[2018-04-17 09:12] LABS: BACTERIA,URINE MODERATE /HPF; RBC,URINE TNTC /HPF
--- NOTE | 2018-04-17 09:20 | Diagnostic Imaging Report ---
PROCEDURE: CT urinary tract, rule out kidney stone. TECHNIQUE: Multiple contiguous axial images were obtained through the abdomen and pelvis without the use of intravenous contrast. INDICATION: Left lower quadrant pain with hematuria. CORRELATION STUDY: 04/06/2018 FINDINGS: LOWER THORAX: Clear. LIVER: Unremarkable. GALLBLADDER: Present and unremarkable. No bile duct dilatation. SPLEEN: Unremarkable. PANCREAS: Unremarkable. ADRENAL GLANDS: Unremarkable. KIDNEYS: Right kidney with tiny stone inferior pole. Collecting system unremarkable. A 9 x 5 x 7 mm stone remains within the left ureteropelvic junction with mild obstruction. ABDOMINAL AORTA: Unremarkable, nonaneurysmal. GASTROINTESTINAL TRACT: No obstruction or inflammation. What appears to be the appendix unremarkable. Mild severity fecal retention. URINARY BLADDER: Relatively decompressed. However, there is suggestion of bladder wall thickening. REPRODUCTIVE: Prostate gland unremarkable. OSSEOUS STRUCTURES: No acute abnormality. OTHER: None. IMPRESSION: 1. Partially obstructing nearly 9 mm stone at the left ureteropelvic junction. This appears relatively stable from prior study. Dictated by: Dictated on workstation # [id number]
[2018-04-17 09:22] LABS: ALANINE AMINOTRANSFERASE 17 U/L (0-55); ALBUMIN 4.5 GM/DL (3.2-4.5); ALKALINE PHOSPHATASE 73 U/L (40-136); BILIRUBIN,TOTAL 0.5 MG/DL (0.1-1.0); BUN/CREATININE RATIO 14; CALCIUM 9.5 MG/DL (8.5-10.1); CARBON DIOXIDE 29 MMOL/L (21-32); CHLORIDE 103 MMOL/L (98-107); CREATININE SERUM 0.97 MG/DL (0.60-1.30); GFR ESTIMATED > 60; GLUCOSE 83 MG/DL (70-105); POTASSIUM 3.5 MMOL/L (3.6-5.0); SODIUM 140 MMOL/L (135-145); TOTAL PROTEIN 7.6 GM/DL (6.4-8.2)
--- NOTE | 2018-04-17 09:24 | ED Abdominal Pain ---
General Chief Complaint: Abdominal/GI Problems Stated Complaint: LEFT ABD PAIN Nursing Triage Note: ARRIVED VIA AMB TO ROOM 06. COMPLAINS OF CONT LEFT SIDED FLANK PAIN. STATES HE WAS DX WITH A KIDNEY STONE AND WAS TO HAVE IT BLASTED BUT ENDED UP IN SHELTER AND NOT HAVING IT DONE. OUT OF OXYCODONE THAT WAS RX ON THE 4TH. Sepsis Screen: No Definite Risk Source of Information: Patient Exam Limitations: No Limitations History of Present Illness Date Seen by Provider: Apr 17, 2018 Time Seen by Provider: 08:36 Initial Comments Here with report of left-sided abdominal pain/flank pain. Has history of kidney stone diagnosed on 04/06/18 to the left UPJ. X-ray at that time was unable to define the stone and repeat x-ray later as well as unable to define the stone. This apparently continues. He was supposed to have the stone blasted via ultrasound but ended up in correction and could not make that appointment. She is back for persistent pain and notes bloody urine. Denies fever or chills. Denies nausea or vomiting. Timing/Duration: Other Severity/Quality: Moderate, Aching Location: Flank Radiation: Back Activities at Onset: None Modifying Factors: Improves With Analgesics Associated Symptoms: Back Pain; No Fever/Chills, No Nausea/Vomiting, No Shortness of Air, No Weakness Allergies and Home Medications Allergies Coded Allergies: No Known Drug Allergies (Unverified , 11/19/12) Patient Home Medication List Home Medication List Reviewed: Yes Review of Systems Constitutional: see HPI; No chills, No fever EENTM: No Symptoms Reported Respiratory: No Symptoms Reported Cardiovascular: No Symptoms Reported Gastrointestinal: See HPI; Denies Nausea, Denies Vomiting Genitourinary: Flank Pain, Hematuria Musculoskeletal: see HPI, back pain; No muscle pain Past Wkhwnkf-Kwoaqw-Thcvzn Hx Past Med/Social Hx: Reviewed Nursing Past Med/Soc Hx Patient Social History Alcohol Use: Denies Use Recreational Drug Use: No (denies now but has history) Drug of Choice: THC, UDS + FOR AMPHETAMINES/METHAMPHETAMINES 04/06/18 Smoking Status: Current Everyday Smoker Type Used: Cigarettes 2nd Hand Smoke Exposure: Yes Recent Foreign Travel: No Contact w/Someone Who Travel: No Recent Infectious Disease Expo: No Recent Hopitalizations: No Immunizations Up To Date Tetanus Booster (TDap): Less than 5yrs Seasonal Allergies Seasonal Allergies: No Past Medical History Surgeries: Yes (BMT'S) Ear Surgery Respiratory: No Cardiac: No Neurological: No Reproductive Disorders: No Sexually Transmitted Disease: No Genitourinary: Yes Kidney Stones Gastrointestinal: No Musculoskeletal: No Endocrine: No HEENT: No Cancer: No Psychosocial: No Integumentary: Yes (MRSA ABSCESS HX,) Blood Disorders: No Family Medical History Reviewed Nursing Family Hx No Pertinent Family Hx Physical Exam Vital Signs Vital Signs - First Documented 04/17/18 07:41 Temp 98.0 Pulse 88 Resp 18 B/P (MAP) 118/82 (94) Pulse Ox 99 O2 Delivery Room Air Capillary Refill : Less Than 3 Seconds Height/Weight/BMI Height: 5'8.00" Weight: 130lbs. oz. 58.114237rk; 15.40 BMI Method:Stated General Appearance: WD/WN, no apparent distress HEENT: PERRL/EOMI, pharynx normal Neck: full range of motion, supple Respiratory: lungs clear, normal breath sounds Cardiovascular: regular rate, rhythm, no murmur Gastrointestinal: non tender, soft Extremities: non-tender, normal inspection Back: no vertebral tenderness; No CVA tenderness (R); CVA tenderness (L) (of mild) Neurologic/Psychiatric: alert, oriented x 3 Skin: normal color, warm/dry Progress/Results/Core Measures Results/Orders Lab Results Laboratory Tests Test 04/17/18 08:50 Range/Units White Blood Count 9.8 4.3-11.0 10^3/uL Red Blood Count 4.87 4.35-5.85 10^6/uL Hemoglobin 15.0 13.3-17.7 G/DL Hematocrit 45 40-54 % Mean Corpuscular Volume 93 80-99 FL Mean Corpuscular Hemoglobin 31 25-34 PG Mean Corpuscular Hemoglobin Concent 33 32-36 G/DL Red Cell Distribution Width 14.4 10.0-14.5 % Platelet Count 319 130-400 10^3/uL Mean Platelet Volume 9.6 7.4-10.4 FL Neutrophils (%) (Auto) 68 42-75 % Lymphocytes (%) (Auto) 21 12-44 % Monocytes (%) (Auto) 8 0-12 % Eosinophils (%) (Auto) 3 0-10 % Basophils (%) (Auto) 0 0-10 % Neutrophils # (Auto) 6.7 1.8-7.8 X 10^3 Lymphocytes # (Auto) 2.0 1.0-4.0 X 10^3 Monocytes # (Auto) 0.8 0.0-1.0 X 10^3 Eosinophils # (Auto) 0.3 0.0-0.3 10^3/uL Basophils # (Auto) 0.0 0.0-0.1 10^3/uL Urine Color YELLOW Urine Clarity VERY CLOUDY H Urine pH 5 5-9 Urine Specific [place] 1.025 H 1.016-1.022 Urine Protein 3+ H NEGATIVE Urine Glucose (UA) NEGATIVE NEGATIVE Urine Ketones NEGATIVE NEGATIVE Urine Nitrite POSITIVE H NEGATIVE Urine Bilirubin NEGATIVE NEGATIVE Urine Urobilinogen 1 NORMAL MG/DL Urine Leukocyte Esterase 2+ H NEGATIVE Urine RBC (Auto) 5+ H NEGATIVE Urine RBC TNTC H /HPF Urine WBC 10-25 H /HPF Urine Crystals NONE /LPF Urine Bacteria MODERATE H /HPF Urine Casts NONE /LPF Urine Mucus NEGATIVE /LPF Urine Culture Indicated YES Sodium Level 140 135-145 MMOL/L Potassium Level 3.5 L 3.6-5.0 MMOL/L Chloride Level 103 98-107 MMOL/L Carbon Dioxide Level 29 21-32 MMOL/L Anion Gap 8 5-14 MMOL/L Blood Urea Nitrogen 14 7-18 MG/DL Creatinine 0.97 0.60-1.30 MG/DL Estimat Glomerular Filtration Rate > 60 BUN/Creatinine Ratio 14 Glucose Level 83 70-105 MG/DL Calcium Level 9.5 8.5-10.1 MG/DL Corrected Calcium 9.1 8.5-10.1 MG/DL Total Bilirubin 0.5 0.1-1.0 MG/DL Aspartate Amino Transf (AST/SGOT) 18 5-34 U/L Alanine Aminotransferase (ALT/SGPT) 17 0-55 U/L Alkaline Phosphatase 73 40-136 U/L Total Protein 7.6 6.4-8.2 GM/DL Albumin 4.5 3.2-4.5 GM/DL My Orders Orders - СЕРГЕЙ DAVIES MD Cbc With Automated Diff (04/17/18 08:24) Comprehensive Metabolic Panel (04/17/18 08:24) Ua Culture If Indicated (04/17/18 08:24) Ct Abd/Pelvis Wo(Kidney Stone) (04/17/18 08:24) Saline Lock/Iv-Start (04/17/18 08:24) Ns Iv 1000 Ml (Sodium Chloride 0.9%) (04/17/18 08:24) Ketorolac Injection (Toradol Injection) (04/17/18 08:24) Urine Culture (04/17/18 08:50) Medications Given in ED Current Medications Medications Dose Ordered Sig/Shayan Route Start Time Stop Time Status Last Admin Dose Admin Sodium Chloride 1,000 ml @ 0 mls/hr Q0M ONCE IV 04/17/18 08:24 04/17/18 08:26 DC 04/17/18 08:53 1,000 MLS/HR Vital Signs/I&O 04/17/18 07:41 Temp 98.0 Pulse 88 Resp 18 B/P (MAP) 118/82 (94) Pulse Ox 99 O2 Delivery Room Air Blood Pressure Mean: 94 Progress Progress Note : Progress Note Seen and evaluated. IV, labs, UA, CT abdomen pelvis to evaluate for kidney stone ordered. Previous x-rays on previous evaluations did not demonstrate the stone that was noted to be there on CT scan so we will go directly to CT as he is having continuing problems. Monitor patient. 0930: UA is positive for nitrite. Previous history shows culture that was negative with similar evaluation. 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 We will initiate treatment although this can be continued outpatient. Rocephin 1 g IV ordered now. Monitor patient. 1035: Discharge home with return precautions. Patient' s verbalize understanding instructions and agreement with plan. Strongly advised to follow-up with urologist as directed. I did not repeat x-ray as stone has not moved from previous area based on CT scan and previous x-rays have not eliminated stone. We will continue outpatient treatment with Cipro given the persistent UTIs noted. Diagnostic Imaging Diagonstic Imaging: CT Plain Films/CT/US/NM/MRI: abdomen, pelvis Comments NAME: RITU ORLANDO [facility] REC#: [id number] PT STATUS: REG ER : 1980 PHYSICIAN: СЕРГЕЙ DAVIES MD ADMIT DATE: 04/17/18/ER Signed Date of Exam: 04/17/18 CT ABD/PELVIS WO(KIDNEY STONE) PROCEDURE: CT urinary tract, rule out kidney stone. TECHNIQUE: Multiple contiguous axial images were obtained through the abdomen and pelvis without the use of intravenous contrast. INDICATION: Left lower quadrant pain with hematuria. CORRELATION STUDY: 04/06/2018 FINDINGS: LOWER THORAX: Clear. LIVER: Unremarkable. GALLBLADDER: Present and unremarkable. No bile duct dilatation. SPLEEN: Unremarkable. PANCREAS: Unremarkable. ADRENAL GLANDS: Unremarkable. KIDNEYS: Right kidney with tiny stone inferior pole. Collecting system unremarkable. A 9 x 5 x 7 mm stone remains within the left ureteropelvic junction with mild obstruction. ABDOMINAL AORTA: Unremarkable, nonaneurysmal. GASTROINTESTINAL TRACT: No obstruction or inflammation. What appears to be the appendix unremarkable. Mild severity fecal retention. URINARY BLADDER: Relatively decompressed. However, there is suggestion of bladder wall thickening. REPRODUCTIVE: Prostate gland unremarkable. OSSEOUS STRUCTURES: No acute abnormality. OTHER: None. IMPRESSION: 1. Partially obstructing nearly 9 mm stone at the left ureteropelvic junction. This appears relatively stable from prior study. Dictated by: Dictated on workstation # [id number] Dict: 04/17/18907 Trans: 04/17/18929 Interpreted by: RODRICK SILVERIO DO Electronically signed by: RODRICK SILVERIO DO 04/17/18929 Reviewed: Reviewed by Me Departure Impression Primary Impression: Ureteral stone with hydronephrosis Additional Impression: Urinary tract infection Qualified Codes: N30.01 - Acute cystitis with hematuria Disposition: HOME, SELF-CARE Condition: Improved Departure-Patient Inst. Decision time for Depature: 10:40 Referrals: SHENA,LOCAL PHYSICIAN (PCP) Primary Care Physician ZENIA HUTCHINS MD Patient Instructions: Kidney Stones (DC), Urinary Tract Infection, Adult (DC) Add. Discharge Instructions: All discharge instructions reviewed with patient and/or family. Voiced understanding. It is vitally important that you follow-up with the urologist listed or of your choosing. Call his office on Thursday for appointment. Return for worse pain, fever, vomiting, weakness, breathing problems or other concerns as needed. Drink plenty of fluids. You may take ibuprofen 800 mg every 8 hours as needed for pain. You may take Tylenol/acetaminophen 1000 mg every 8 hours as needed for pain if you're not taking the prescribed pain medicine as they both have acetaminophen in them. Scripts Hydrocodone Bit/Acetaminophen (Hydrocodone/Acetaminophen 5/325mg Tablet) 1 Tab Tab 1 EACH PO Q6H PRN for PAIN-MODERATE, #12 TAB 0 Refills Prov: СЕРГЕЙ DAVIES MD 04/17/18 Ciprofloxacin HCl (Ciprofloxacin HCl) 500 Mg Tablet 500 MG PO BID, #14 TAB Prov: СЕРГЕЙ DAVIES MD 04/17/18 Copy Copies To 1: ZENIA HUTCHINS MD, TIMOTHY D MD Apr 17, 2018 09:24
[2018-04-17] MEDS ORDERED: ACHD5005 PO (10:42)
[2018-04-17] MEDS ORDERED: CIPR500T4 PO (10:42)
[2018-04-17 10:50] VITALS: BP 125/79
== END 2018-04-17 10:50 | disposition home or self-care (01) ==
LOC: EDUNIT# 07:37 → ER 07:38
DX: N13.6 Pyonephrosis (principal); F12.10 Cannabis abuse, uncomplicated; F15.10 Other stimulant abuse, uncomplicated; F17.210 Nicotine dependence, cigarettes, uncomplicated; Z86.14 Personal history of Methicillin resistant Staphylococcus aureus infection; Z87.442 Personal history of urinary calculi
CPT/HCPCS: 36415; 74176; 80053; 81000; 85025; 87088; 96361; 96374

== ENCOUNTER 2018-10-06 18:55 | Emergency (ER) | payer MEDICAID ==
[~2018-10-06] VITALS: Ht 182.9 cm; Wt 68.0 kg
[~2018-10-06 18:55] MED LIST changes: +CEPH-507 PO; +CIPR500T4 PO; +HYDR-4226 PO; -HYDR-757 PO
--- NOTE | 2018-10-06 19:29 | Diagnostic Imaging Report ---
INDICATION: Right knee pain. FINDINGS: Three views of the right knee show no fracture, dislocation, or other acute abnormalities. IMPRESSION: Negative right knee. Dictated by: Dictated on workstation # [id number]
[2018-10-06] MEDS ORDERED: ACETAMINOPHEN 325 MG TABLET PO STA (19:38)
--- NOTE | 2018-10-06 19:38 | ED Lower Extremity ---
General Chief Complaint: Lower Extremity Stated Complaint: R KNEE PAIN Nursing Triage Note: PT PRESENTS TO ER WITH COMPLAINT OF RIGHT KNEE PAIN. STATES IT STARTED TODAY. STATES KNEE "LOCKS UP" Nursing Sepsis Screen: No Definite Risk History of Present Illness Date Seen by Provider: Oct 06, 2018 Time Seen by Provider: 19:05 Initial Comments 38-year-old male presents for right knee pain. His pain is specifically on the lateral aspect of his right knee. He denies any injuries, surgeries or previous problems with his right knee. He takes Tylenol on occasion and takes naproxen 500 mg twice daily. He has extensive amount of walking today and felt like the knee was going to walk up on him. Onset: this morning Pain/Injury Location: right knee Method of Injury: unknown Modifying Factors: Improves With Rest Allergies and Home Medications Allergies Coded Allergies: No Known Drug Allergies (Unverified , 11/19/12) Home Medications Cephalexin 500 Mg Capsule, 500 MG PO BID Prescribed by: FRANCIS OTERO on 05/01/18 165 Ciprofloxacin HCl 500 Mg Tablet, 500 MG PO BID Prescribed by: СЕРГЕЙ DAVIES on 04/17/18 1042 Hydrocodone Bit/Acetaminophen 1 Tab Tab, 1 EACH PO Q6H PRN for PAIN-MODERATE Prescribed by: СЕРГЕЙ DAVIES on 04/17/18 1042 Hydrocodone Bit/Acetaminophen 1 Tab Tab, 1 EACH PO Q4H PRN for PAIN Prescribed by: FRANCIS OTERO on 05/01/18 1651 Patient Home Medication List Home Medication List Reviewed: Yes Review of Systems Constitutional: no symptoms reported, see HPI Musculoskeletal: see HPI, joint pain (right knee pain) Past Cddubja-Dkbzwo-Jmfogi Hx Past Med/Social Hx: Reviewed Nursing Past Med/Soc Hx Patient Social History Alcohol Use: Denies Use Recreational Drug Use: Yes Drug of Choice: THC, UDS + FOR AMPHETAMINES/METHAMPHETAMINES 04/06/18 Smoking Status: Current Everyday Smoker Type Used: Cigarettes 2nd Hand Smoke Exposure: Yes Recent Foreign Travel: No Contact w/Someone Who Travel: No Recent Infectious Disease Expo: No Recent Hopitalizations: No Immunizations Up To Date Tetanus Booster (TDap): Less than 5yrs Seasonal Allergies Seasonal Allergies: No Past Medical History Surgeries: Yes (BMT'S) Ear Surgery Respiratory: No Cardiac: No Neurological: No Reproductive Disorders: No Sexually Transmitted Disease: No Genitourinary: Yes Kidney Stones Gastrointestinal: No Musculoskeletal: No Endocrine: No HEENT: No Cancer: No Psychosocial: No Integumentary: Yes (MRSA ABSCESS HX,) Blood Disorders: No Family Medical History No Pertinent Family Hx Physical Exam Vital Signs Vital Signs - First Documented 10/06/18 19:01 Pulse 105 Resp 20 B/P (MAP) 136/74 (94) Pulse Ox 99 O2 Delivery Room Air Capillary Refill : Less Than 3 Seconds Height, Weight, BMI Height: 6'0" Weight: 150lbs. oz. 68.504357mw; 15.40 BMI Method:Stated General Appearance: WD/WN, no apparent distress Cardiovascular: normal peripheral pulses, regular rate, rhythm Respiratory: chest non-tender, lungs clear Knees: right knee normal inspection, right knee normal range of motion, right knee no evidence of injury, right knee bone tenderness (lateral femoral condyle) , right knee soft tissue tenderness (lateral joint space), right knee other ( negative Jc, anterior drawer, posterior drawer. Ambulates with a steady heel-to-toe gait, able to walk on his toes and heels.) Progress/Results/Core Measures Results/Orders My Orders Orders - CHARISMA WILD Knee, Right, 3 Views (10/06/18 19:19) Acetaminophen Tablet/Caplet (Tylenol T (10/06/18 19:38) Vital Signs/I&O 10/06/18 10/06/18 19:01 19:55 Pulse 105 105 Resp 20 20 B/P (MAP) 136/74 (94) 136/74 (94) Pulse Ox 99 99 O2 Delivery Room Air Blood Pressure Mean: 94 Diagnostic Imaging Diagonstic Imaging: Xray Plain Films/CT/US/NM/MRI: knee Comments NAME: RITU ORLANDO [facility] REC#: [id number] PT STATUS: REG ER : 1980 PHYSICIAN: CHARISMA WILD ADMIT DATE: 10/06/18/ER Draft Date of Exam:10/06/18 KNEE, RIGHT, 3 VIEWS INDICATION: Right knee pain. FINDINGS: Three views of the right knee show no fracture, dislocation, or other acute abnormalities. IMPRESSION: Negative right knee. Dictated on workstation # [id number] Dict: 10/06/181926 Trans: 10/06/181928 [id number] Interpreted by: СЕРГЕЙ DAVIS MD Electronically signed by: Reviewed: Reviewed by Me Departure Impression Primary Impression: Right knee pain Qualified Codes: M25.561 - Pain in right knee Disposition: HOME, SELF-CARE Condition: Improved Departure-Patient Inst. Decision time for Depature: 19:35 Referrals: NO,LOCAL PHYSICIAN (PCP/Family) Primary Care Physician Patient Instructions: Knee Sprain (DC) Add. Discharge Instructions: Ice to right knee 20 minutes every 2 hours while awake. 6 inch DAVIDSON wrap applied to your knee, use this as needed. Continue to take naproxen 500 mg twice daily with food. For additional pain he may take Tylenol 650 mg every 6 hours. Use Davidson wrap to right knee. If symptoms are not improving or worsen, follow up with Jose C Corbett APRN for referral to orthopedics. Return to emergency department for new, urgent health care needs. All discharge instructions reviewed with patient and/or family. Voiced understanding. CHARISMA WILD Oct 06, 2018 19:38
[2018-10-06 19:55] VITALS: BP 136/74
== END 2018-10-06 19:55 | disposition home or self-care (01) ==
LOC: EDUNIT# 18:55 → ER 18:56
DX: M25.561 Pain in right knee (principal); F12.10 Cannabis abuse, uncomplicated; F15.10 Other stimulant abuse, uncomplicated; F17.210 Nicotine dependence, cigarettes, uncomplicated; Z98.890 Other specified postprocedural states; Z87.442 Personal history of urinary calculi; Z86.14 Personal history of Methicillin resistant Staphylococcus aureus infection
CPT/HCPCS: 73562; 99283

== ENCOUNTER 2018-10-14 20:51 | Emergency (ER) | payer SELFPAY ==
[~2018-10-14] VITALS: Ht 182.9 cm; Wt 70.3 kg
[2018-10-14] MEDS ORDERED: KETOROLAC 30 MG/ML VIAL IM ONE (21:30)
[2018-10-14] MEDS ORDERED: KETOROLAC 60 MG/2 ML VIAL ONE (21:30)
[2018-10-14 21:31] LABS: BILIRUBIN,URINE NEGATIVE (NEGATIVE); CLARITY,URINE SLIGHTLY CLOUDY; COLOR,URINE YELLOW; GLUCOSE, URINE (UA) NEGATIVE (NEGATIVE); KETONES,URINE NEGATIVE (NEGATIVE); LEUKOCYTE ESTERASE ,URINE 1+ (NEGATIVE); NITRITE,URINE NEGATIVE (NEGATIVE); PH,URINE 6.5 (5-9); PROTEIN,URINE 2+ (NEGATIVE); UROBILINOGEN,URINE NORMAL (NORMAL)
--- NOTE | 2018-10-14 21:34 | ED Back Pain ---
General Stated Complaint: BACK PAIN,Hx KIDNEY STONES Source of Information: Patient Exam Limitations: No Limitations History of Present Illness Date Seen by Provider: Oct 14, 2018 Time Seen by Provider: 21:21 Initial Comments Patient presents to ER by private conveyance with his brother and chief complaint that about an hour ago he started having some left flank pain, mild dysuria but no hematuria. He says 6 months ago he had 6 mg kidney stone and the fourth digit to see the urologist he had to go to care home. While he was in care home the nurse practitioner gave him a medicine to dissolve the stone and his pain went away. He's having no fevers chills nausea vomiting. He is not taking anything for the pain yet. He was on amitriptyline till about 2 weeks ago. He stopped taking it because it made him drowsy. He had only been on it for about 4 months while in care home. He's been on Bactrim for the past week and has about 2 more days left to treat MRSA colonization. Allergies and Home Medications Allergies Coded Allergies: No Known Drug Allergies (Unverified , 11/19/12) Home Medications Cephalexin 500 Mg Capsule, 500 MG PO BID Prescribed by: FRANCIS OTERO on 05/01/18 1651 Ciprofloxacin HCl 500 Mg Tablet, 500 MG PO BID Prescribed by: СЕРГЕЙ DAVIES on 04/17/18 1042 Hydrocodone Bit/Acetaminophen 1 Tab Tab, 1 EACH PO Q6H PRN for PAIN-MODERATE Prescribed by: СЕРГЕЙ DAVIES on 04/17/18 1042 Hydrocodone Bit/Acetaminophen 1 Tab Tab, 1 EACH PO Q4H PRN for PAIN Prescribed by: FRANCIS OTERO on 05/01/18 1651 Patient Home Medication List Home Medication List Reviewed: Yes Review of Systems Constitutional: No chills, No diaphoresis EENTM: No ear discharge, No ear pain Respiratory: No cough, No dyspnea on exertion Cardiovascular: No chest pain Gastrointestinal: No abdominal pain, No constipation, No diarrhea, No nausea Genitourinary: No discharge; dysuria Musculoskeletal: see HPI, back pain Skin: No pruritus, No rash Past Ffoioxj-Mzqnbw-Cxixjf Hx Patient Social History Alcohol Use: Denies Use Recreational Drug Use: Yes Drug of Choice: THC, UDS + FOR AMPHETAMINES/METHAMPHETAMINES 04/06/18 Smoking Status: Current Everyday Smoker Type Used: Cigarettes 2nd Hand Smoke Exposure: Yes Recent Foreign Travel: No Contact w/Someone Who Travel: No Recent Hopitalizations: No Immunizations Up To Date Tetanus Booster (TDap): Less than 5yrs Seasonal Allergies Seasonal Allergies: No Past Medical History Surgeries: Yes (BMT'S) Ear Surgery Respiratory: No Cardiac: No Neurological: No Reproductive Disorders: No Sexually Transmitted Disease: No Genitourinary: Yes Kidney Stones Gastrointestinal: No Musculoskeletal: No Endocrine: No HEENT: No Cancer: No Psychosocial: No Integumentary: Yes (MRSA ABSCESS HX,) Blood Disorders: No Family Medical History No Pertinent Family Hx Physical Exam Vital Signs Vital Signs - First Documented 10/14/18 21:27 Pulse 91 Resp 18 B/P (MAP) 136/93 (107) Pulse Ox 98 O2 Delivery Room Air Capillary Refill : Height, Weight, BMI Height: 6'0" Weight: 150lbs. oz. 68.943606bm; 15.40 BMI Method:Stated General Appearance: WD/WN, Mild Distress HEENT: Pharynx Normal, Moist Mucous Membranes Cardiovascular: Regular Rate, Rhythm, No Edema, Normal Peripheral Pulses Respiratory: No Accessory Muscle Use, No Respiratory Distress Peripheral Pulses: 2+ Radial Pulses (R), 2+ Radial Pulses (L) Gastrointestinal: No Non Tender, No Soft Back: Normal Inspection, CVA Tenderness (L) Extremity: Normal Capillary Refill Neurologic/Psychiatric: Alert, Oriented x3 Progress/Results/Core Measures Results/Orders Lab Results Laboratory Tests Test 10/14/18 21:17 10/14/18 22:10 Range/Units Urine Color YELLOW Urine Clarity SLIGHTLY CLOUDY Urine pH 6.5 5-9 Urine Specific [place] 1.015 L 1.016-1.022 Urine Protein 2+ H NEGATIVE Urine Glucose (UA) NEGATIVE NEGATIVE Urine Ketones NEGATIVE NEGATIVE Urine Nitrite NEGATIVE NEGATIVE Urine Bilirubin NEGATIVE NEGATIVE Urine Urobilinogen NORMAL NORMAL MG/DL Urine Leukocyte Esterase 1+ H NEGATIVE Urine RBC (Auto) 5+ H NEGATIVE Urine RBC >100 H /HPF Urine WBC RARE /HPF Urine Crystals NONE /LPF Urine Bacteria NEGATIVE /HPF Urine Casts NONE /LPF Urine Mucus SMALL H /LPF Urine Culture Indicated NO White Blood Count 7.5 4.3-11.0 10^3/uL Red Blood Count 4.27 L 4.35-5.85 10^6/uL Hemoglobin 12.9 L 13.3-17.7 G/DL Hematocrit 40 40-54 % Mean Corpuscular Volume 93 80-99 FL Mean Corpuscular Hemoglobin 30 25-34 PG Mean Corpuscular Hemoglobin Concent 33 32-36 G/DL Red Cell Distribution Width 14.6 H 10.0-14.5 % Platelet Count 448 H 130-400 10^3/uL Mean Platelet Volume 9.1 7.4-10.4 FL Neutrophils (%) (Auto) 55 42-75 % Lymphocytes (%) (Auto) 34 12-44 % Monocytes (%) (Auto) 8 0-12 % Eosinophils (%) (Auto) 2 0-10 % Basophils (%) (Auto) 1 0-10 % Neutrophils # (Auto) 4.1 1.8-7.8 X 10^3 Lymphocytes # (Auto) 2.5 1.0-4.0 X 10^3 Monocytes # (Auto) 0.6 0.0-1.0 X 10^3 Eosinophils # (Auto) 0.2 0.0-0.3 10^3/uL Basophils # (Auto) 0.0 0.0-0.1 10^3/uL Sodium Level 142 135-145 MMOL/L Potassium Level 4.3 3.6-5.0 MMOL/L Chloride Level 105 98-107 MMOL/L Carbon Dioxide Level 25 21-32 MMOL/L Anion Gap 12 5-14 MMOL/L Blood Urea Nitrogen 18 7-18 MG/DL Creatinine 1.20 0.60-1.30 MG/DL Estimat Glomerular Filtration Rate > 60 BUN/Creatinine Ratio 15 Glucose Level 85 70-105 MG/DL Calcium Level 9.7 8.5-10.1 MG/DL My Orders Orders - HERNANDO BROWN Ua Culture If Indicated (10/14/18 20:56) Ct Abd/Pelvis Wo(Kidney Stone) (10/14/18 21:25) Abdomen/Kub 1view (10/14/18 21:25) Ketorolac Injection (Toradol Injection) (10/14/18 21:30) Ketorolac Injection (Toradol Injection) (10/14/18 21:30) Ceftriaxone For Im Use (Rocephin For Im (10/14/18 22:15) Lidocaine 1% Inj 20 Ml (Xylocaine 1% Inj (10/14/18 22:15) Cbc With Automated Diff (10/14/18 22:13) Basic Metabolic Panel (10/14/18 22:13) Rx-Hydrocodone/Apap 5-325 Mg (Rx-Vicodin (10/14/18 22:45) Hydrocodone/Apap 5/325 Tablet (Lortab 5 (10/14/18 22:45) Medications Given in ED Current Medications Medications Dose Ordered Sig/Shayan Route Start Time Stop Time Status Last Admin Dose Admin Ketorolac Tromethamine 60 mg ONCE ONCE IM 10/14/18 21:30 10/14/18 21:31 DC 10/14/18 21:43 60 MG Lidocaine HCl 2.1 ml ONCE ONCE INJ 10/14/18 22:15 10/14/18 22:16 DC 10/14/18 22:46 2.1 ML Vital Signs/I&O 10/14/18 21:27 Pulse 91 Resp 18 B/P (MAP) 136/93 (107) Pulse Ox 98 O2 Delivery Room Air Progress Progress Note : Time: 21:39 Progress Note Toradol, CT and KUB. Urinalysis. No gross hematuria. Differential includes UTI paraspinous back pain. Abdomen is nontender, benign. Vital signs are aseptic. Diagnostic Imaging Diagonstic Imaging: Xray Plain Films/CT/US/NM/MRI: abdomen (KUB 1 view) Comments NAME: JOHANNYALTA [facility] REC#: [id number] PHYSICIAN: HERNANDO BROWN MD CC: MARTINEZ PARSON MD; HERNANDO BROWN Page 1 of 1 RADIOLOGY REPORT [facility] [place] CC: MARTINEZ PARSON MD; HERNANDO BROWN Page 1 of 1 RADIOLOGY REPORT NAME: JOHANNYALTA [facility] REC#: [id number] PT STATUS: REG ER : 1980 PHYSICIAN: HERNANDO BROWN MD ADMIT DATE: 10/14/18/ER Signed Date of Exam: 10/14/18 ABDOMEN/KUB 1VIEW INDICATION: Left leg pain. EXAMINATION: Supine abdomen at 9:50 p.m FINDINGS: The nonobstructive calculus within the proximal left ureter seen on the CT abdomen/pelvis exam performed in conjunction with this study is again visualized. The calculus lies immediately lateral to the left transverse process of L3. There is no other pathological calcification evident. There is no mass or organomegaly noted. As seen on the CT exam there is a considerable amount of fecal material throughout the colon. The osseous structures are intact. IMPRESSION: 1. The obstructive calculus within the proximal left ureter, seen previously, is again evident. 2. There is no acute abnormality noted otherwise. Dictated by: Dictated on workstation # [id number] Dict: 10/14/182220 Trans: 10/14/182231 Interpreted by: MARTINEZ PARSON MD Electronically signed by: MARTINEZ PARSON MD 10/14/182231 Reviewed: Reviewed by Me Diagonstic Imaging: CT (noncontrast kidney stone study) Plain Films/CT/US/NM/MRI: abdomen, pelvis Comments NAME: RITU ORLANDO [facility] REC#: [id number] PHYSICIAN: HERNANDO BROWN MD CC: MARTINEZ PARSON MD; HERNANDO BROWN Page 2 of 2 RADIOLOGY REPORT [facility] [place] CC: MARTINEZ PARSON MD; HERNANDO BROWN Page 1 of 2 RADIOLOGY REPORT [facility]#: [id number] PT STATUS: REG ER : 1980 PHYSICIAN: HERNANDO BROWN MD ADMIT DATE: 10/14/18/ER Signed Date of Exam: 10/14/18 CT ABD/PELVIS WO(KIDNEY STONE) PROCEDURE: CT urinary tract, rule out kidney stone. TECHNIQUE: Multiple contiguous axial images were obtained through the abdomen and pelvis without the use of intravenous contrast. INDICATION: Back pain. FINDINGS: The previous CT abdomen/pelvis exam 05/01/2018 noted a 9 MM calculus within the left renal pelvis. There is no sign of obstruction of left collecting system. In the interval since the prior study, however the calculus has migrated into the proximal left ureter. I do suspect that the calculus is producing mild obstruction of left collecting system. There is no perinephric stranding about the left kidney to suggest a high-grade obstruction. There is no evidence for nephrolithiasis or urolithiasis on the right. The urinary bladder is grossly unremarkable. The prostate gland is not enlarged. There is diverticulosis of sigmoid and descending colon but there is no sign of acute diverticulitis. The appendix was visualized and is not abnormally thickened. There does appear to be a fair amount of fecal material throughout the colon. The liver, spleen, pancreas, adrenals, aorta and inferior vena cava are unremarkable for an acute abnormality. The gallbladder is not well-distended and consequently difficult to assess. Conversely the stomach is filled with particulate matter and also difficult to evaluate. The lung bases are clear. The bone windows are unremarkable for fracture or for destructive lesion. IMPRESSION: 1. The 9 MM calculus within the left renal pelvis seen on the prior exam has migrated into the proximal left ureter. This calculus does appear to be producing mild obstruction of left collecting system. 2. There is no acute abnormality of the abdomen or pelvis noted otherwise. Dictated by: Dictated on workstation # [id number] Dict: 10/14/182213 Trans: 10/14/182233 Interpreted by: MARTINEZ PARSON MD Electronically signed by: MARTINEZ PARSON MD 10/14/182233 Reviewed: Reviewed by Me Departure Impression Primary Impression: Left ureteral calculus Disposition: 01 HOME, SELF-CARE Condition: Stable Departure-Patient Inst. Decision time for Depature: 22:49 Referrals: [facility] (PCP) Primary Care Physician JARRETT CALI (Family) Primary Care Physician ZENIA HUTCHINS MD Patient Instructions: Extracorporeal Shock Wave Lithotripsy for Kidney Stones, Kidney Stones (DC) Add. Discharge Instructions: Tomorrow morning call Dr. Hutchins, urology at his clinic and request an appointment for management of your kidney stone. Continue to take the Bactrim one tablet twice a day for the next week. If you have nausea you can take one tablet of Zofran every 6 hours as needed. If you have pain you can use Tylenol and ibuprofen 800 mg every 8 hours. If this does not control your pain you may use one tablet of hydrocodone every 6 hours as needed. Heating pads and drink lots of fluids. This stone will not pass on its own. If you begin to have fevers or uncontrollable pain and vomiting then you should return to the nearest ER for further evaluation. Scripts Sulfamethoxazole/Trimethoprim (Bactrim Ds Tablet) 1 Each Tablet 1 EACH PO BID for 7 Days, #14 TAB 0 Refills Prov: HERNANDO BROWN 10/14/18 Ondansetron (Ondansetron Odt) 4 Mg Tab.rapdis 4 MG PO Q6H PRN for NAUSEA/VOMITING, #8 TAB 0 Refills Prov: HERNANDO BROWN 10/14/18 Hydrocodone Bit/Acetaminophen (Hydrocodone/Acetaminophen 5/325mg Tablet) 1 Tab Tab 1-2 EACH PO Q6H for PAIN-MODERATE MDD 10, #20 TAB 0 Refills Prov: HERNANDO BROWN 10/14/18 Copy Copies To 1: ZENIA HUTCHINS MD, TITUS J Oct 14, 2018 21:33
[2018-10-14 21:37] LABS: BACTERIA,URINE NEGATIVE /HPF; RBC,URINE >100 /HPF; WBC,URINE RARE /HPF
--- OUTSIDE RECORDS SUMMARY | 2018-10-14 22:08 | XMS REPORT ---
Author Author JARRETT CALI Organization [facility] Address [address] [place] [address] Care Team Providers Care Electric Switch Tester Name Role Phone JARRETT CALI Unavailable PROBLEMS Type Condition ICD9-CM Code [id number] Code Onset Dates Condition Status SNOMED Code Problem Anxiety F41.9 Active 69335644 Problem Psoriasis L40.9 Active 8388395 Problem Mood disorder F39 Active 09218798 Problem Renal lithiasis N20.0 Active 14435389 ALLERGIES No Known Allergies ENCOUNTERS Encounter Location Date Diagnosis [facility] [address] [id number] Aug, [facility] [address] [id number] Jul, Mood disorder F39 [address] [place] [id number] Jul, Tooth pain K08.89 and Anxiety F41.[address] [id number] Jul, Anxiety F41.9 and Psoriasis L40.9 [facility] [address] [address] Jun, Abscess of scrotal wall N49.2 [address] [place] [id number] Jun, Abscess L02.91 [address] [place] [phone] Jun, Renal lithiasis N20.0 [address] [place] [phone] Jun, Abscess, scrotum N49.2 and Mood disorder F39 [address] [id number] May, Renal lithiasis N20.0 [facility] [address] [address] Feb, Closed fracture of right hand with routine healing, subsequent encounter S62.91XD [facility] [address] [address] January, [facility] [id number] [place] [id number] Nov, Dental examination Z01.20 and Dental caries K02.9 [facility] [id number] [place] [address] Jun, Hospital discharge follow-up Z09 and Closed nondisplaced fracture of proximal phalanx of right great toe with routine healing, subsequent encounter S92.414D [facility] [id number] [place] [phone] Feb, MRSA (methicillin resistant Staphylococcus aureus) infection A49.02 [facility] [address] [place] [address] Jul, Unspecified injury of left wrist, hand and finger(s), subsequent encounter S69.92XD [facility] [id number] [place] [id number] Mar, Dental examination V72.2 [facility] [address] [place] [address] Dec, [facility] [address], [place] [address] Dec, [facility] [address] [place] [address] Oct, [facility] [address] [place] [address] Oct, [facility] [id number] [place] [address] Oct, [facility] [address] [address] Oct, [facility] [id number] [address] Oct, [facility] [address] [address] Aug, [facility] [address] [facility] [id number] [address] Aug, [facility] [address] [address] Aug, [facility] [address] [facility] [id number] [address] Aug, [facility] [address] [address] Aug, [facility] [address], [place] [address] Aug, [facility] [address], [place] [address] Aug, [facility] [address], [place] [address] Aug, [facility] [address], [place] [address] Dec, IMMUNIZATIONS No Known Immunizations SOCIAL HISTORY Never Assessed REASON FOR VISIT longterm PLAN OF CARE VITAL SIGNS MEDICATIONS Medication Instructions Dosage Frequency Start Date End Date Duration Status Bactrim DS 800-160 MG Orally Twice a day 1 tablet 12h Jul, 10 day(s) Active RESULTS No Results PROCEDURES No Known procedures INSTRUCTIONS MEDICATIONS ADMINISTERED No Known Medications MEDICAL (GENERAL) HISTORY Type Description Date Medical History Adjustment disorder with mixed disturbance of emotions and conduct Medical History Other psoriasis Surgical History No Surgical history information
--- OUTSIDE RECORDS SUMMARY | 2018-10-14 22:08 | XMS REPORT ---
Author Author JARRETT CALI Organization [facility] Address [address] [place] [address] Care Team Providers Care State Patrol Officer Name Role Phone JARRETT CALI Unavailable PROBLEMS Type Condition ICD9-CM Code [id number] Code Onset Dates Condition Status SNOMED Code Problem Anxiety F41.9 Active 14638045 Problem Psoriasis L40.9 Active 3875710 Problem Mood disorder F39 Active 94025106 Problem Renal lithiasis N20.0 Active 63118711 ALLERGIES No Known Allergies ENCOUNTERS Encounter Location Date Diagnosis [address] [place] [id number] Jul, Anxiety F41.9 and Psoriasis L40.9 [facility] [address] [place] [id number] Jun, Abscess of scrotal wall N49.2 [address] [place] [id number] Jun, Abscess L02.[address] [id number] Jun, Renal lithiasis N20.[address] [id number] Jun, Abscess, scrotum N49.2 and Mood disorder F39 [address] [place] [id number] May, Renal lithiasis N20.0 [facility] [id number] [address] Feb, Closed fracture of right hand with routine healing, subsequent encounter S62.91XD [facility] [id number] [place] [address] January, [facility] [address] [id number] [id number] Nov, Dental examination Z01.20 and Dental caries K02.9 [facility] [address] [id number] [place] [address] Jun, 2017 Hospital discharge follow-up Z09 and Closed nondisplaced fracture of proximal phalanx of right great toe with routine healing, subsequent encounter S92.414D [facility] [address] [id number] [place] [address] Feb, 2016 MRSA (methicillin resistant Staphylococcus aureus) infection A49.02 [facility] [address] [id number] [place] [address] Jul, Unspecified injury of left wrist, hand and finger(s), subsequent encounter S69.92XD [facility] [address] [id number] [place] [id number] Mar, Dental examination V72.2 [facility] [address] [id number] [address] 14 Dec, 2014 [facility] [address] [id number] [place] [address] Dec, [facility] [address] [id number] [place] [address] Oct, [facility] [address] [id number] [place] [address] Oct, [facility] [address] [id number] [place] [address] Oct, [facility] [address] [id number] [place] [address] Oct, [facility] [address] [id number] [place] [address] Oct, [facility] [address] [id number] [place] Aug, [facility] [address] [id number] [place] Aug, [facility] [address] [facility] [id number] [place] [address] Aug, [facility] [address] [facility] [id number] [place] [address] Aug, [facility] [id number] [address] Aug, [facility] [address] [facility] [id number] [place] [address] Aug, [facility] [id number] [address] Aug, [facility] [id number] [address] Aug, [facility] [id number] [address] Dec, IMMUNIZATIONS No Known Immunizations SOCIAL HISTORY Never Assessed REASON FOR VISIT CUSTODIAL PLAN OF CARE VITAL SIGNS Height 72 in 2018-07-13 Weight 143 lbs 2018-07-13 Heart Rate 66 bpm 2018-07-13 Respiratory Rate 18 2018-07-13 BMI 19.39 kg/m2 2018-07-13 Blood pressure systolic 108 mmHg 2018-07-13 Blood pressure diastolic 64 mmHg 2018-07-13 MEDICATIONS Medication Instructions Dosage Frequency Start Date End Date Duration Status Triamcinolone Acetonide 0.1 % Externally Twice a day 1 application to affected area 12h Jul, Active HydrOXYzine HCl 25 MG Orally every 8 hrs 1 tablet as needed 8h Jul, 30 day(s) Active RESULTS No Results PROCEDURES No Known procedures INSTRUCTIONS MEDICATIONS ADMINISTERED No Known Medications MEDICAL (GENERAL) HISTORY Type Description Date Medical History Adjustment disorder with mixed disturbance of emotions and conduct Medical History Other psoriasis Surgical History No Surgical history information
--- OUTSIDE RECORDS SUMMARY | 2018-10-14 22:08 | XMS REPORT ---
Author Author JARRETT CALI Organization [facility] Address [address] [place] [address] Care Team Providers Care Boring Machine Operator Helper Name Role Phone JARRETT CALI Unavailable PROBLEMS Type Condition ICD9-CM Code [id number] Code Onset Dates Condition Status SNOMED Code Problem Anxiety F41.9 Active 30751434 Problem Psoriasis L40.9 Active 8305442 Problem Mood disorder F39 Active 44310926 Problem Renal lithiasis N20.0 Active 33253183 ALLERGIES No Known Allergies ENCOUNTERS Encounter Location Date Diagnosis [facility] [address] [id number] Aug, [address] [place] [address] Jul, Tooth pain K08.89 and Anxiety F41.[address] [id number] Jul, Anxiety F41.9 and Psoriasis L40.9 [facility] [address] [address] Jun, Abscess of scrotal wall N49.2 [address] [place] [address] Jun, Abscess L02.[address] [id number] Jun, Renal lithiasis N20.[address] [id number] Jun, Abscess, scrotum N49.2 and Mood disorder F39 [address] [place] [id number] May, Renal lithiasis N20.0 [facility] [address] [address] Feb, Closed fracture of right hand with routine healing, subsequent encounter S62.91XD [facility] [address] [address] January, [facility] [address] [address] Nov, Dental examination Z01.20 and Dental caries K02.9 [facility] [id number] [address] 02 Jun, 2017 Hospital discharge follow-up Z09 and Closed nondisplaced fracture of proximal phalanx of right great toe with routine healing, subsequent encounter S92.414D [facility] [address] [id number] Feb, MRSA (methicillin resistant Staphylococcus aureus) infection A49.02 [facility] [address], [place] [address] Jul, Unspecified injury of left wrist, hand and finger(s), subsequent encounter S69.92XD [facility] [address] [address] Mar, Dental examination V72.2 [facility] [address] [id number], [place] [address] Dec, [facility] [address], [place] [address] Dec, [facility] [address] [id number][place] [address] Oct, [facility] [address] [id number]- [address] Oct, [facility] [address] [id number][place] 76[place] Oct, [facility] [address] [id number][place] [address] Oct, [facility] [id number] [address] 83[address] Oct, [facility] [id number] [address]- 2490 Aug, [facility] [address] [id number] [address] Aug, [facility] [address], [place] [address] 9[address] Aug, [facility] [address] [address] Aug, [facility] [address], [place] [address] Aug, [facility] [address] [place] [address]67 Aug, [facility] [address] [address] Aug, [facility] [address] [address] Aug, [facility] [address] [id number] [address] Dec, IMMUNIZATIONS No Known Immunizations SOCIAL HISTORY Never Assessed REASON FOR VISIT Detention PLAN OF CARE VITAL SIGNS Height 72 in 2018-07-20 Weight 147 lbs 2018-07-20 Heart Rate 56 bpm 2018-07-20 Respiratory Rate 18 2018-07-20 BMI 19.93 kg/m2 2018-07-20 Blood pressure systolic 100 mmHg 2018-07-20 Blood pressure diastolic 70 mmHg 2018-07-20 MEDICATIONS Medication Instructions Dosage Frequency Start Date End Date Duration Status HydrOXYzine Pamoate 50 MG Orally 3 times a day 1 capsule as needed 8h 13 Jul, 2018 30 day(s) Active RESULTS No Results PROCEDURES No Known procedures INSTRUCTIONS MEDICATIONS ADMINISTERED No Known Medications MEDICAL (GENERAL) HISTORY Type Description Date Medical History Adjustment disorder with mixed disturbance of emotions and conduct Medical History Other psoriasis Surgical History No Surgical history information
--- OUTSIDE RECORDS SUMMARY | 2018-10-14 22:08 | XMS REPORT ---
Author Author JARRETT CALI Organization [facility] Address [address] [place] [address] Care Team Providers Care Slubber Tender Name Role Phone VIRAJJARRETT Unavailable PROBLEMS Type Condition ICD9-CM Code [id number] Code Onset Dates Condition Status SNOMED Code Problem Mood disorder F39 Active 66812155 Problem Renal lithiasis N20.0 Active 92009782 ALLERGIES No Known Allergies ENCOUNTERS Encounter Location Date Diagnosis [facility] [id number] [place] [address] Jun, Abscess of scrotal wall N49.2 [address] [place] [address] Jun, Abscess L02.[address] [id number] Jun, Renal lithiasis N20.0 [address] [place] [address] Jun, Abscess, scrotum N49.2 and Mood disorder F39 [address] [place] [id number] May, Renal lithiasis N20.0 [facility] [id number] [place] [address] Feb, Closed fracture of right hand with routine healing, subsequent encounter S62.91XD [facility] [id number] [place] [address] January, [facility] [address] [id number] Nov, Dental examination Z01.20 and Dental caries K02.9 [facility] [id number] [place] [address] 7060 Jun, Hospital discharge follow-up Z09 and Closed nondisplaced fracture of proximal phalanx of right great toe with routine healing, subsequent encounter S92.414D [facility] [address] [id number], [place] [address] Feb, MRSA (methicillin resistant Staphylococcus aureus) infection A49.02 [facility] [address] [id number][place] 65[place] Jul, Unspecified injury of left wrist, hand and finger(s), subsequent encounter S69.92XD [facility] [address] [id number][place] [address] Mar, Dental examination V72.2 [facility] [address] [id number], [place] [address] 1136 Dec, [facility] [address] [id number], [place] [address] 4163 Dec, [facility] [address] [id number][place] [address] 14[address] Oct, [facility] [address] [id number], [place] [address] 46[address] Oct, [facility] [address] [id number], [place] [address]- 05[address] Oct, [facility] [address] [id number], [place] [address]- 3152 Oct, [facility] [address] [id number][place] [address]- 6625 Oct, [facility] [address] [id number], [place] [address]- 9657 Aug, [facility] [address] [id number][place]- 5[address] Aug, [facility] [address] [id number], [place] 510[place]- 74[address] Aug, [facility] [address] [id number], [place] 523[place]- [address] Aug, [facility] [address] [facility] [id number], [place] [address] 8[address] Aug, [facility] [address] [facility] [id number][place] [address]- 2073 Aug, [facility] [address] [facility] [id number][place] [address]- 3[address] Aug, [facility] [address] [facility] [id number][place] [address]- 1541 Aug, [facility] [address] [facility] [id number][place] [address] 8[address] Dec, IMMUNIZATIONS No Known Immunizations SOCIAL HISTORY Never Assessed REASON FOR VISIT Abscess Drainage - Angel RYAN PLAN OF CARE VITAL SIGNS Height 72 in 2018-06-29 Weight 140 lbs 2018-06-29 Temperature 98.6 degrees Fahrenheit 2018-06-29 Heart Rate 75 bpm 2018-06-29 Respiratory Rate 18 2018-06-29 Oximetry 99 % 2018-06-29 BMI 18.99 kg/m2 2018-06-29 Blood pressure systolic 128 mmHg 2018-06-29 Blood pressure diastolic 68 mmHg 2018-06-29 MEDICATIONS Medication Instructions Dosage Frequency Start Date End Date Duration Status Bactrim DS 800-160 MG Orally Twice a day 1 tablet 12h Jun, Jul, 10 day(s) Active Naproxen 500 MG Orally every 12 hrs 1 tablet with food or milk as needed 12h Jun, Active Trazodone HCl 150 MG Orally at bedtime 1 tablet at bedtime as needed Jun, Active RESULTS No Results PROCEDURES No Known procedures INSTRUCTIONS MEDICATIONS ADMINISTERED No Known Medications MEDICAL (GENERAL) HISTORY Type Description Date Medical History Adjustment disorder with mixed disturbance of emotions and conduct Medical History Other psoriasis Surgical History No Surgical history information
--- OUTSIDE RECORDS SUMMARY | 2018-10-14 22:08 | XMS REPORT ---
Author Author JARRETT CALI Organization [facility] Address [address] [place] [address] Care Team Providers Care Wind Farm Engineer Name Role Phone VIRAJJARRETT Unavailable PROBLEMS Type Condition ICD9-CM Code [id number] Code Onset Dates Condition Status SNOMED Code Problem Mood disorder F39 Active 60613057 Problem Renal lithiasis N20.0 Active 40020430 ALLERGIES No Known Allergies ENCOUNTERS Encounter Location Date Diagnosis [facility] [id number] [place] [id number] Jun, Abscess of scrotal wall N49.2 [address] [place] [address] Jun, Abscess L02.[address] [id number] Jun, Renal lithiasis N20.0 [address] [place] [address] Jun, Abscess, scrotum N49.2 and Mood disorder F39 [address] [place] [address] May, Renal lithiasis N20.0 [facility] [id number] [place] [address]- 9287 Feb, Closed fracture of right hand with routine healing, subsequent encounter S62.91XD [facility] [id number] [place] [address] January, [facility] [address] [id number] Nov, Dental examination Z01.20 and Dental caries K02.9 [facility] [id number] [place] [address]- 2589 Jun, Hospital discharge follow-up Z09 and Closed nondisplaced fracture of proximal phalanx of right great toe with routine healing, subsequent encounter S92.414D [facility] [address] [id number] [address]- [address] Feb, MRSA (methicillin resistant Staphylococcus aureus) infection A49.02 [facility] [address] [id number][place]184[place] Jul, Unspecified injury of left wrist, hand and finger(s), subsequent encounter S69.92XD [facility] [address] [id number], [place] [id number] Mar, Dental examination V72.2 [facility] [address] [id number] [address]- 74[address] Dec, [facility] [address] [id number] [address]- 2414 Dec, [facility] [address] [id number][place] [address]- 4412 Oct, [facility] [address] [id number] [address]- 3648 Oct, [facility] [address] [id number][place] [address]- 5648 Oct, [facility] [address] [id number][place] [address]- 2174 Oct, [facility] [address] [id number][place] [address]- 4504 Oct, [facility] [address] [id number][place] [address]- 2537 Aug, [facility] [address] [id number][place] 4024[place]- 8[address] Aug, [facility] [address] [id number], [place] 557[place]- 2442 Aug, [facility] [address] [id number], [place] 212016- 4718 Aug, [facility] [address] [facility] [id number] [address]- 5148 Aug, [facility] [address] [facility] [id number], [place] [address]- 7477 Aug, [facility] [address] [facility] [id number][place] [address]- 0790 Aug, [facility] [address] [facility] [id number], [place] [address]- 2396 Aug, [facility] [address] [facility] [id number][place] [address]- 3931 Dec, IMMUNIZATIONS No Known Immunizations SOCIAL HISTORY Never Assessed REASON FOR VISIT Usp PLAN OF CARE VITAL SIGNS Height 72 in 2018-06-29 Weight 140 lbs 2018-06-29 Heart Rate 98 bpm 2018-06-29 Respiratory Rate 18 2018-06-29 BMI 18.99 kg/m2 2018-06-29 Blood pressure systolic 106 mmHg 2018-06-29 Blood pressure diastolic 64 mmHg 2018-06-29 MEDICATIONS Medication Instructions Dosage Frequency [...]
--- OUTSIDE RECORDS SUMMARY | 2018-10-14 22:08 | XMS REPORT ---
Author Author JARRETT CALI Organization [facility] Address [address] [place] [address] Care Team Providers Care Harvester Operator Name Role Phone VIRAJJARRETT Unavailable PROBLEMS Type Condition ICD9-CM Code [id number] Code Onset Dates Condition Status SNOMED Code Problem Mood disorder F39 Active 94185968 Problem Renal lithiasis N20.0 Active 53418255 ALLERGIES No Known Allergies ENCOUNTERS Encounter Location Date Diagnosis [facility] [address] [address] Jun, [facility] [address] [place] [id number] Jun, Renal lithiasis N20.0 [facility] [address] [place] [id number] Jun, Abscess, scrotum N49.2 and Mood disorder F39 [address] [place] [address] May, Renal lithiasis N20.0 [facility] [id number] [place] [address]- [address]649 Feb, Closed fracture of right hand with routine healing, subsequent encounter S62.91XD [facility] [address] [address] January, [facility] [address] [id number] Nov, Dental examination Z01.20 and Dental caries K02.9 [facility] [address] [address] Jun, Hospital discharge follow-up Z09 and Closed nondisplaced fracture of proximal phalanx of right great toe with routine healing, subsequent encounter S92.414D [facility] [address] [address]- [address] Feb, MRSA (methicillin resistant Staphylococcus aureus) infection A49.02 [facility] [address] [id number], [place] [address]- [address] Jul, Unspecified injury of left wrist, hand and finger(s), subsequent encounter S69.92XD [facility] [address] [id number], [place] [address] Mar, Dental examination V72.2 [facility] [address] [id number], [place] [address]- 4504 Dec, [facility] [address] [id number], [place] [address]- 4587 Dec, [facility] [address] [id number], [place] [address]- 7270 Oct, [facility] [address] [id number], [place] [address]- 0034 Oct, [facility] [address] [id number], [place] [address]- 7515 Oct, [facility] [address] [id number], [place] [address]- 7776 Oct, [facility] [address] [id number], [place] [address]- 4251 Oct, [facility] [address] [id number], [place] [address]- 2241 Aug, [facility] [address] [id number], [place] [address]- 6599 Aug, [facility] [address] [id number], [place] [address]- 2730 Aug, [facility] [address] [id number], [place] [address]- 1461 Aug, [facility] [address] [id number], [place] [address]- 9572 Aug, [facility] [address] [facility] [id number], [place] [address]- 2546 Aug, [facility] [address] [facility] [id number], [place] [address]- 2546 Aug, [facility] [address] [facility] [id number], [place] [address]- 2546 Aug, [facility] [address] [facility] [id number], [place] [address]- 2546 Dec, IMMUNIZATIONS No Known Immunizations SOCIAL HISTORY Never Assessed REASON FOR VISIT long-term PLAN OF CARE VITAL SIGNS MEDICATIONS Medication Instructions Dosage Frequency Start Date End Date Duration Status Trazodone HCl 50 MG Orally Once a day 1 tablet at bedtime as needed 24h Jun, 30 day(s) Active Clindamycin HCl 300 MG Orally 4 times a day 1 capsule 6h Jun, Jun, 10 day(s) Active RESULTS No Results PROCEDURES No Known procedures INSTRUCTIONS MEDICATIONS ADMINISTERED No Known Medications MEDICAL (GENERAL) HISTORY Type Description Date Medical History Adjustment disorder with mixed disturbance of emotions and conduct Medical History Other psoriasis
--- OUTSIDE RECORDS SUMMARY | 2018-10-14 22:08 | XMS REPORT ---
Author Author JARRETT CALI Organization [facility] Address [address] [place] [address] Care Team Providers Care Industrial Relations Representative Name Role Phone JARRETT CALI Unavailable PROBLEMS Type Condition ICD9-CM Code [id number] Code Onset Dates Condition Status SNOMED Code Problem Anxiety F41.9 Active 92362832 Problem Psoriasis L40.9 Active 3667343 Problem Mood disorder F39 Active 85982740 Problem Renal lithiasis N20.0 Active 05185709 ALLERGIES No Known Allergies ENCOUNTERS Encounter Location Date Diagnosis [facility] [address] [place] [id number] Aug, [address] [id number] Aug, Anxiety F41.9 and Abscess L02.91 [facility] [address] [place] [address] 91654194- 2321 Jul, Mood disorder F39 [address] [id number] Jul, Tooth pain K08.89 and Anxiety F41.[address] [id number] Jul, Anxiety F41.9 and Psoriasis L40.9 [facility] [address] [place] [address] 42550784- 5368 Jun, Abscess of scrotal wall N49.[address] [id number] Jun, Abscess L02.[address] [id number] Jun, Renal lithiasis N20.[address] [id number] Jun, Abscess, scrotum N49.2 and Mood disorder F39 [address] [id number] May, Renal lithiasis N20.0 [facility] [address] [id number] [address]- [address] Feb, Closed fracture of right hand with routine healing, subsequent encounter S62.91XD [facility] [address]005[address]100[place] [address] January, [facility] [id number] [place] [address] [id number] Nov, Dental examination Z01.20 and Dental caries K02.9 [facility] [address]00565100[place] [address]- [address] Jun, Hospital discharge follow-up Z09 and Closed nondisplaced fracture of proximal phalanx of right great toe with routine healing, subsequent encounter S92.414D [facility] [address]00565100[place] [address]- 6[address] Feb, MRSA (methicillin resistant Staphylococcus aureus) infection A49.02 [facility] [address]00565100[place] [address]- [address] Jul, Unspecified injury of left wrist, hand and finger(s), subsequent encounter S69.92XD [facility] [address] [address] Mar, Dental examination V72.2 [facility] [address]00565100[place] [address]- 8535 Dec, [facility] [address] [address]- 69[address] Dec, [facility] [address] [id number] [address]- 7676 Oct, [facility] [address]005[address]100[place] [address]- 1781 Oct, [facility] [address] [id number] [address]- 0980 Oct, [facility] [address]100[place] [address]- 5[address] Oct, [facility] [address]005[address]100[place] [address]- 1189 Oct, [facility] [address]005[address]100[place] [address]- 2598 Aug, [facility] [address]00565100[place] [address]- 12[address] Aug, [facility] [address] [facility] [id number] [place] [address]- 7052 Aug, [facility] [address] [place] [address]86[address]- 4674 Aug, [facility] [address]005[address]100[place] [address]- 3598 Aug, [facility] [address]005[address]100[place] [address]- 5704 Aug, [facility] [address]100[place] [address]- 8991 Aug, [facility] [address]100[place] [address]- 9271 Aug, [facility] [address] [address]- 8897 Dec, IMMUNIZATIONS No Known Immunizations SOCIAL HISTORY Never Assessed REASON FOR VISIT senior care PLAN OF CARE VITAL SIGNS Height 72 in 2018-08-17 Weight 144 lbs 2018-08-17 Heart Rate 60 bpm 2018-08-17 Respiratory Rate 18 2018-08-17 BMI 19.53 kg/m2 2018-08-17 Blood pressure systolic 124 mmHg 2018-08-17 Blood pressure diastolic 70 mmHg 2018-08-17 MEDICATIONS Medication Instructions Dosage Frequency Start Date End Date Duration Status Amitriptyline HCl 50 MG Orally at bedtime 1 tablet Aug, 30 day(s) Active Bactrim DS 800-160 MG Orally Twice a day 1 tablet 12h Aug, 10 day(s) Active RESULTS No Results PROCEDURES No Known procedures INSTRUCTIONS MEDICATIONS ADMINISTERED No Known Medications MEDICAL (GENERAL) HISTORY Type Description Date Medical History Adjustment disorder with mixed disturbance of emotions and conduct Medical History Other psoriasis Surgical History No Surgical history information
--- OUTSIDE RECORDS SUMMARY | 2018-10-14 22:09 | XMS REPORT ---
Author JARRETT Cameron [facility] Address [facility] [place] [address] Care Team Providers Care Chief Communications Officer Name Role Phone JARRETT CALI Unavailable PROBLEMS ALLERGIES No Known Allergies ENCOUNTERS IMMUNIZATIONS No Known Immunizations SOCIAL HISTORY No smoking Hx information available REASON FOR VISIT PLAN OF CARE VITAL SIGNS MEDICATIONS RESULTS No Results PROCEDURES No Known procedures INSTRUCTIONS MEDICATIONS ADMINISTERED No Known Medications MEDICAL (GENERAL) HISTORY
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
[2018-10-14] MEDS ORDERED: LIDOCAINE 1% INJ 20 ML 20 ML VIAL INJ ONE (22:15)
[2018-10-14] MEDS ORDERED: cefTRIAXone 1,000 MG/2.86 ml vial (IM ONLY) IM SCH (22:15)
[2018-10-14 22:19] LABS: BASOPHILS % (AUTO) 1 % (0-10); EOSINOPHILS # (AUTO) 0.2 10^3/uL (0.0-0.3); EOSINOPHILS % (AUTO) 2 % (0-10); HEMATOCRIT 40 % (40-54); HEMOGLOBIN 12.9 G/DL (13.3-17.7); LYMPHOCYTES # (AUTO) 2.5 X 10^3 (1.0-4.0); LYMPHOCYTES % (AUTO) 34 % (12-44); MEAN CORPUSCULAR HEMOGLOBIN 30 PG (25-34); MEAN CORPUSCULAR HGB CONC 33 G/DL (32-36); MEAN CORPUSCULAR VOLUME 93 FL (80-99); MEAN PLATELET VOLUME 9.1 FL (7.4-10.4); MONOCYTES # (AUTO) 0.6 X 10^3 (0.0-1.0); MONOCYTES % (AUTO) 8 % (0-12); NEUTROPHILS # (AUTO) 4.1 X 10^3 (1.8-7.8); NEUTROPHILS % (AUTO) 55 % (42-75); PLATELET COUNT 448 10^3/uL (130-400); RED CELL DISTRIBUTION WIDTH 14.6 % (10.0-14.5); WHITE BLOOD COUNT 7.5 10^3/uL (4.3-11.0)
--- NOTE | 2018-10-14 22:24 | Diagnostic Imaging Report ---
PROCEDURE: CT urinary tract, rule out kidney stone. TECHNIQUE: Multiple contiguous axial images were obtained through the abdomen and pelvis without the use of intravenous contrast. INDICATION: Back pain. FINDINGS: The previous CT abdomen/pelvis exam 05/01/2018 noted a 9 MM calculus within the left renal pelvis. There is no sign of obstruction of left collecting system. In the interval since the prior study, however the calculus has migrated into the proximal left ureter. I do suspect that the calculus is producing mild obstruction of left collecting system. There is no perinephric stranding about the left kidney to suggest a high-grade obstruction. There is no evidence for nephrolithiasis or urolithiasis on the right. The urinary bladder is grossly unremarkable. The prostate gland is not enlarged. There is diverticulosis of sigmoid and descending colon but there is no sign of acute diverticulitis. The appendix was visualized and is not abnormally thickened. There does appear to be a fair amount of fecal material throughout the colon. The liver, spleen, pancreas, adrenals, aorta and inferior vena cava are unremarkable for an acute abnormality. The gallbladder is not well-distended and consequently difficult to assess. Conversely the stomach is filled with particulate matter and also difficult to evaluate. The lung bases are clear. The bone windows are unremarkable for fracture or for destructive lesion. IMPRESSION: 1. The 9 MM calculus within the left renal pelvis seen on the prior exam has migrated into the proximal left ureter. This calculus does appear to be producing mild obstruction of left collecting system. 2. There is no acute abnormality of the abdomen or pelvis noted otherwise. Dictated by: Dictated on workstation # [id number]
--- NOTE | 2018-10-14 22:28 | Diagnostic Imaging Report ---
INDICATION: Left leg pain. EXAMINATION: Supine abdomen at 9:50 p.m FINDINGS: The nonobstructive calculus within the proximal left ureter seen on the CT abdomen/pelvis exam performed in conjunction with this study is again visualized. The calculus lies immediately lateral to the left transverse process of L3. There is no other pathological calcification evident. There is no mass or organomegaly noted. As seen on the CT exam there is a considerable amount of fecal material throughout the colon. The osseous structures are intact. IMPRESSION: 1. The obstructive calculus within the proximal left ureter, seen previously, is again evident. 2. There is no acute abnormality noted otherwise. Dictated by: Dictated on workstation # [id number]
[2018-10-14 22:38] LABS: BUN/CREATININE RATIO 15; CALCIUM 9.7 MG/DL (8.5-10.1); CARBON DIOXIDE 25 MMOL/L (21-32); CHLORIDE 105 MMOL/L (98-107); GFR ESTIMATED > 60; GLUCOSE 85 MG/DL (70-105); POTASSIUM 4.3 MMOL/L (3.6-5.0); SODIUM 142 MMOL/L (135-145)
[2018-10-14] MEDS ORDERED: RX-HYDROCODONE/APAP 5/325 MG #4 TAB PK PO PRN (22:45)
[2018-10-14] MEDS ORDERED: HYDROcodone/APAP 5 MG/325 MG (LORTAB) TAB PO ONE (22:45)
[2018-10-14] MEDS ORDERED: ACHD5005 PO (22:52)
[2018-10-14] MEDS ORDERED: SULF1TAB35 PO (22:52)
[2018-10-14] MEDS ORDERED: ONDA4TAB11 PO (22:52)
[2018-10-14 23:08] VITALS: BP 130/82
== END 2018-10-14 23:08 | disposition home or self-care (01) ==
LOC: EDUNIT# 20:51 → ER 20:52
DX: N20.2 Calculus of kidney with calculus of ureter (principal); F12.10 Cannabis abuse, uncomplicated; F15.10 Other stimulant abuse, uncomplicated; F17.210 Nicotine dependence, cigarettes, uncomplicated; Z86.19 Personal history of other infectious and parasitic diseases; Z87.442 Personal history of urinary calculi; Z86.14 Personal history of Methicillin resistant Staphylococcus aureus infection
CPT/HCPCS: 36415; 74018; 74176; 80048; 81000; 85025

== ENCOUNTER 2018-10-29 00:06 | Emergency (ER) | payer SELFPAY ==
[~2018-10-29] VITALS: Ht 182.9 cm; Wt 72.6 kg
[~2018-10-29 00:06] MED LIST changes: +ONDA4TAB11 PO
[2018-10-29 00:42] LABS: BILIRUBIN,URINE NEGATIVE (NEGATIVE); CLARITY,URINE CLEAR; COLOR,URINE YELLOW; GLUCOSE, URINE (UA) NEGATIVE (NEGATIVE); KETONES,URINE NEGATIVE (NEGATIVE); LEUKOCYTE ESTERASE ,URINE 1+ (NEGATIVE); NITRITE,URINE NEGATIVE (NEGATIVE); PH,URINE 6 (5-9); PROTEIN,URINE 3+ (NEGATIVE); UROBILINOGEN,URINE NORMAL (NORMAL)
[2018-10-29 00:50] LABS: BACTERIA,URINE FEW /HPF; RBC,URINE 50-100 /HPF; SQUAMOUS EPITHELIAL CELL,UR RARE /HPF
[2018-10-29] MEDS ORDERED: KETOROLAC 60 MG/2 ML VIAL IM ONE (01:15)
[2018-10-29] MEDS ORDERED: ORPHENADRINE 60 MG/2 ML (NORFLEX) AMP IM ONE (01:15)
[2018-10-29] MEDS ORDERED: diphenhydrAMINE 50 MG/ML INJ (BENADRYL) IM ONE (01:15)
--- NOTE | 2018-10-29 01:20 | ED Back Pain ---
General Chief Complaint: Back Problems Stated Complaint: POSS KIDNEY STONES Nursing Triage Note: left flank pain x2hrs similiar to previous kidney stones. Nursing Sepsis Screen: No Definite Risk Source of Information: Patient, Old Records History of Present Illness Date Seen by Provider: Oct 29, 2018 Time Seen by Provider: 01:00 Initial Comments PT ARRIVES VIA POV FROM HOME C/O LEFT FLANK PAIN--STATES 'MY KIDNEY STONE'S HURTING" STATES PAIN BEGAN AN HOUR AGO PAIN IS CONSTANT, NOTHING WORSENS OR IMPROVES PAIN HAS NOT TAKEN ANYTHING FOR PAIN NO NAUSEA/VOMITING NO FEVER NO PROBLEMS URINATING OR BLOOD IN URINE THIS IS PT'S 7TH VISIT FOR THIS SAME PROBLEM SINCE 04/06/18--FIRST DX OF KIDNEY STONE LAST ER VISIT 10/14/18--RX FOR BACTRIM AND ZOFRAN. PT HAS NOT FOLLOWED UP WITH UROLOGIST ADVISED, BUT STATES HE HAS FOLLOWED UP WITH LABORER TANBARK AB CALI, WHO GAVE HIM "A MEDICINE TO BREAK UP THE STONE" --PT HAS NOT BEEN TAKING IT. STATES HE HAS NEVER PASSED THE STONE PT HAS MULTITUDE OF VISITS --MANY FOR ABSCESSES/CELLULITIS-MRSA, DENTAL PAIN, AND MOST RECENTLY FOR FLANK PAIN/KIDNEY STONE ISSUES. Other Comments PCP: [facility] Allergies and Home Medications Allergies Coded Allergies: No Known Drug Allergies (Unverified , 11/19/12) Home Medications Sulfamethoxazole/Trimethoprim 1 Each Tablet, 1 EACH PO BID Prescribed by: ROLAN CARDONA on 10/29/18137 Tamsulosin HCl 0.4 Mg Cap, 0.4 MG PO DAILY Prescribed by: ROLAN CARDONA on 10/29/18137 Patient Home Medication List Home Medication List Reviewed: Yes Review of Systems Constitutional: no symptoms reported Respiratory: no symptoms reported Cardiovascular: no symptoms reported Gastrointestinal: see HPI; No nausea, No vomiting Genitourinary: see HPI Musculoskeletal: see HPI Skin: no symptoms reported Psychiatric/Neurological: No Symptoms Reported Past Uxqowyy-Qpjugx-Patijo Hx Patient Social History Alcohol Use: Past History (PT CLAIMS THAT HE USED TO DRINK "ALOT" BUT CLAIMS NO USE FOR YEARS) Recreational Drug Use: Yes (UDS + THC, METH/AMPHETAMINES) Drug of Choice: UDS + FOR THC, METH/AMPHETAMINES Smoking Status: Current Everyday Smoker (1 PPD) Type Used: Cigarettes (1 PPD) 2nd Hand Smoke Exposure: Yes Recent Foreign Travel: No Contact w/Someone Who Travel: No Recent Infectious Disease Expo: No Recent Hopitalizations: No Immunizations Up To Date Tetanus Booster (TDap): Less than 5yrs Seasonal Allergies Seasonal Allergies: No Past Medical History Surgeries: Yes (BMT'S) Ear Surgery Respiratory: No Cardiac: No Neurological: No Reproductive Disorders: No Sexually Transmitted Disease: No Genitourinary: Yes Kidney Stones Gastrointestinal: No Musculoskeletal: No Endocrine: No HEENT: Yes (DENTAL DECAY) Cancer: No Psychosocial: No Integumentary: Yes (MRSA ABSCESSES/CELLULITIS,) Blood Disorders: No Family Medical History No Pertinent Family Hx Physical Exam Vital Signs Vital Signs - First Documented 10/29/18 00:14 Temp 96.3 Pulse 88 Resp 18 B/P (MAP) 151/97 (115) Pulse Ox 98 O2 Delivery Room Air Capillary Refill : Less Than 3 Seconds Height, Weight, BMI Height: 6'0" Weight: 160lbs. oz. 72.261082ca; 15.40 BMI Method:Stated General Appearance: No Apparent Distress, Thin, Other (FLAT AFFECT, WALKS UPRIGHT AND MOVES QUICKLY WITHOUT DIFFICULTY. DOES NOT APPEAR TO BE IN ANY DISCOMFORT OR DISTRESS. DIRTY, MALODOROUS. 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 ) Progress/Results/Core Measures Results/Orders Lab Results Laboratory Tests Test 10/29/18 00:30 10/29/18 00:32 Range/Units Urine Opiates Screen NEGATIVE NEGATIVE Urine Oxycodone Screen NEGATIVE NEGATIVE Urine Methadone Screen NEGATIVE NEGATIVE Urine Propoxyphene Screen NEGATIVE NEGATIVE Urine Barbiturates Screen NEGATIVE NEGATIVE Ur Tricyclic Antidepressants Screen NEGATIVE NEGATIVE Urine Phencyclidine Screen NEGATIVE NEGATIVE Urine Amphetamines Screen NEGATIVE NEGATIVE Urine Methamphetamines Screen NEGATIVE NEGATIVE Urine Benzodiazepines Screen NEGATIVE NEGATIVE Urine Cocaine Screen NEGATIVE NEGATIVE Urine Cannabinoids Screen NEGATIVE NEGATIVE Urine Color YELLOW Urine Clarity CLEAR Urine pH 6 5-9 Urine Specific Ramsey 1.025 H 1.016-1.022 Urine Protein 3+ H NEGATIVE Urine Glucose (UA) NEGATIVE NEGATIVE Urine Ketones NEGATIVE NEGATIVE Urine Nitrite NEGATIVE NEGATIVE Urine Bilirubin NEGATIVE NEGATIVE Urine Urobilinogen NORMAL NORMAL MG/DL Urine Leukocyte Esterase 1+ H NEGATIVE Urine RBC (Auto) 5+ H NEGATIVE Urine RBC 50-100 H /HPF Urine WBC 5-10 H /HPF Urine Squamous Epithelial Cells RARE /HPF Urine Crystals NONE /LPF Urine Bacteria FEW H /HPF Urine Casts NONE /LPF Urine Mucus NEGATIVE /LPF Urine Culture Indicated YES My Orders Orders - ROLAN CARDONA DO Ua Culture If Indicated (10/29/18 00:35) Urine Culture (10/29/18 00:32) Ct Abd/Pelvis Wo(Kidney Stone) (10/29/18 01:04) Abdomen/Kub 1view (10/29/18 01:04) Ketorolac Injection (Toradol Injection) (10/29/18 01:15) Orphenadrine Injection (Norflex Injectio (10/29/18 01:15) Diphenhydramine Injection (Benadryl Inje (10/29/18 01:15) Drug Screen Stat (Urine) (10/29/18 01:10) Medications Given in ED Current Medications Medications Dose Ordered Sig/Shayan Route Start Time Stop Time Status Last Admin Dose Admin Diphenhydramine HCl 50 mg ONCE ONCE IM 10/29/18 01:15 10/29/18 01:16 DC 10/29/18 01:26 50 MG Ketorolac Tromethamine 60 mg ONCE ONCE IM 10/29/18 01:15 10/29/18 01:16 DC 10/29/18 01:26 60 MG Orphenadrine Citrate 60 mg ONCE ONCE IM 10/29/18 01:15 10/29/18 01:16 DC 10/29/18 01:26 60 MG Vital Signs/I&O 10/29/18 00:14 Temp 96.3 Pulse 88 Resp 18 B/P (MAP) 151/97 (115) Pulse Ox 98 O2 Delivery Room Air Blood Pressure Mean: 115 Progress Progress Note : Progress Note UNEVENTFUL ER STAY STRESSED THE IMPORTANCE OF FOLLOW UP WITH UROLOGIST, DAMAGE TO KIDNEY FROM CHRONIC OBSTRUCTION AND CHRONIC INFECTION STRESSED THE IMPORTANCE OF GETTING HIS ANTIBIOTIC RX FILLED AND TAKING IT DIRECTED. Diagnostic Imaging Comments KUB--NO ACUTE PROCESS, PENDING RADIOLOGIST REVIEW CT ABDOMEN/PELVIS--5.8 MM LEFT PROXIMAL URETERAL STONE AT [facility] WITH MILD LEFT HYDRONEPHROSIS--PER [facility] VIA FAX @ [id number] NO MY COMPARISON FROM PRIOR CT, THIS IS SAME STONE IN SAME POSITION ON PRIOR STUDIES Reviewed: Reviewed by Me Departure Impression Primary Impression: Calculus of proximal left ureter Additional Impressions: Obstruction of left ureteropelvic junction (UPJ) due to stone UTI (urinary tract infection) Noncompliance Disposition: 01 HOME, SELF-CARE Condition: Stable Departure-Patient Inst. Referrals: [facility] (PCP) Primary Care Physician JARRETT CALI (Family) Primary Care Physician ZENIA HUTCHINS MD Patient Instructions: Kidney Stones (DC) Add. Discharge Instructions: LOTS OF CLEAR LIQUIDS STRAIN ALL URINE--RETURN ANY STONES TO DR. HUTCHINS'S OFFICE CALL DR. HUTCHINS'S OFFICE TODAY AND ARRANGE A FOLLOW UP APPOINTMENT NEXT WEEK All discharge instructions reviewed with patient and/or family. Voiced understanding. Scripts Sulfamethoxazole/Trimethoprim (Bactrim Ds Tablet) 1 Each Tablet 1 EACH PO BID, #20 TAB Prov: ROLAN CARDONA DO 10/29/18 Tamsulosin HCl (Flomax) 0.4 Mg Cap 0.4 MG PO DAILY, #10 CAP Prov: ROLAN CARDONA DO 10/29/18 ROLAN CARDONA DO Oct 29, 2018 01:20
[2018-10-29 01:25] LABS: AMPHETAMINE SCREEN, URINE NEGATIVE (NEGATIVE); BARBITURATE SCREEN URINE NEGATIVE (NEGATIVE); BENZODIAZEPINES SCREEN URINE NEGATIVE (NEGATIVE); CANNABINOID SCREEN, URINE NEGATIVE (NEGATIVE); COCAINE SCREEN URINE NEGATIVE (NEGATIVE); METHADONE STAT NEGATIVE (NEGATIVE); METHAMPHETAMINE SCREEN URINE S NEGATIVE (NEGATIVE); OPIATE SCREEN URINE NEGATIVE (NEGATIVE); OXYCODONE STAT NEGATIVE (NEGATIVE); PROPOXYPHENE STAT NEGATIVE (NEGATIVE); TRICYCLIC ANTIDEPRESSANTS SCRE NEGATIVE (NEGATIVE)
[2018-10-29] MEDS ORDERED: SULF1TAB35 PO (01:38)
[2018-10-29] MEDS ORDERED: TAMS0.4C98 PO (01:38)
[2018-10-29 01:55] VITALS: BP 129/86
--- NOTE | 2018-10-29 07:19 | Diagnostic Imaging Report ---
PROCEDURE: CT urinary tract, rule out kidney stone. TECHNIQUE: Multiple contiguous axial images were obtained through the abdomen and pelvis without the use of intravenous contrast. INDICATION: Left flank pain. Lung bases are clear. Liver appears normal. Gallbladder is present. Pancreas is normal. Spleen is not enlarged. Adrenals are normal. Right kidney is normal. There is a 7 mm stone in the left proximal ureter causing hydronephrosis of the left kidney. Stone is at the ureteropelvic junction. Appendix is normal. Large and intestine appear normal. Bladder is normal. IMPRESSION: 7 mm stone in the left ureteropelvic junction causing obstruction. I agree with preliminary interpretation. Dictated by: Dictated on workstation # [id number]
--- NOTE | 2018-10-29 07:24 | Diagnostic Imaging Report ---
INDICATION: Left flank pain. KUB 1:24 a.m. There is a 7 mm calculus projecting over the proximal left ureter. Bowel gas pattern is normal. IMPRESSION: Left ureterolithiasis. Dictated by: Dictated on workstation # [id number]
== END 2018-10-29 01:58 | disposition home or self-care (01) ==
LOC: EDUNIT# 00:06 → ER 00:09
DX: N13.6 Pyonephrosis (principal); N13.0 Hydronephrosis with ureteropelvic junction obstruction; F12.10 Cannabis abuse, uncomplicated; F15.10 Other stimulant abuse, uncomplicated; F17.210 Nicotine dependence, cigarettes, uncomplicated; Z87.442 Personal history of urinary calculi; Z86.14 Personal history of Methicillin resistant Staphylococcus aureus infection; Z91.14 Patient's other noncompliance with medication regimen
CPT/HCPCS: 74018; 74176; 80306; 81000; 87088; 96372

== ENCOUNTER 2018-11-29 14:41 | Emergency (ER) | payer SELFPAY ==
[~2018-11-29] VITALS: Ht 182.9 cm; Wt 59.0 kg
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
[2018-11-29 16:13] LABS: BASOPHILS % (AUTO) 1 % (0-10); EOSINOPHILS # (AUTO) 0.2 10^3/uL (0.0-0.3); EOSINOPHILS % (AUTO) 3 % (0-10); HEMATOCRIT 44 % (40-54); HEMOGLOBIN 14.5 G/DL (13.3-17.7); LYMPHOCYTES # (AUTO) 1.3 X 10^3 (1.0-4.0); LYMPHOCYTES % (AUTO) 18 % (12-44); MEAN CORPUSCULAR HEMOGLOBIN 31 PG (25-34); MEAN CORPUSCULAR HGB CONC 33 G/DL (32-36); MEAN CORPUSCULAR VOLUME 92 FL (80-99); MEAN PLATELET VOLUME 9.9 FL (7.4-10.4); MONOCYTES # (AUTO) 0.6 X 10^3 (0.0-1.0); MONOCYTES % (AUTO) 8 % (0-12); NEUTROPHILS # (AUTO) 5.2 X 10^3 (1.8-7.8); NEUTROPHILS % (AUTO) 71 % (42-75); PLATELET COUNT 281 10^3/uL (130-400); RED CELL DISTRIBUTION WIDTH 14.3 % (10.0-14.5); WHITE BLOOD COUNT 7.4 10^3/uL (4.3-11.0)
[2018-11-29 16:36] LABS: ALANINE AMINOTRANSFERASE 15 U/L (0-55); ALBUMIN 4.2 GM/DL (3.2-4.5); ALKALINE PHOSPHATASE 75 U/L (40-136); BILIRUBIN,TOTAL 0.3 MG/DL (0.1-1.0); BUN/CREATININE RATIO 13; CALCIUM 9.5 MG/DL (8.5-10.1); CARBON DIOXIDE 26 MMOL/L (21-32); CHLORIDE 106 MMOL/L (98-107); CREATININE SERUM 0.95 MG/DL (0.60-1.30); GFR ESTIMATED > 60; GLUCOSE 92 MG/DL (70-105); LIPASE 32 U/L (8-78); POTASSIUM 4.5 MMOL/L (3.6-5.0); SODIUM 141 MMOL/L (135-145); TOTAL PROTEIN 7.1 GM/DL (6.4-8.2)
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
--- NOTE | 2018-11-29 17:03 | Diagnostic Imaging Report ---
INDICATION: Nephrolithiasis. COMPARISON: 10/29/2018. FINDINGS: Two supine radiographic views of the abdomen and pelvis were obtained. There is a single calculus projected over the inferior pole of the left kidney that measures 7 mm in diameter. No other unexpected extraosseous calcifications or radiopaque foreign bodies are seen. Small bowel loops are nondistended. There is no large collection of free intraperitoneal air. Bony structures show no acute abnormalities. IMPRESSION: 1. Left-sided nephrolithiasis. 2. Nonobstructed small bowel gas pattern. Dictated by: Dictated on workstation # [id number]
--- NOTE | 2018-11-29 17:10 | Diagnostic Imaging Report ---
PROCEDURE: CT urinary tract, rule out kidney stone. TECHNIQUE: Multiple contiguous axial images were obtained through the abdomen and pelvis without the use of intravenous contrast. Auto Exposure Controls were utilized during the CT exam to meet ALARA standards for radiation dose reduction. INDICATION: Posterior left back pain. COMPARISON: Comparison is made to study of 10/29/2018. FINDINGS: Unenhanced images of the liver, gallbladder, pancreas, spleen and adrenal glands remain unremarkable. Unenhanced images of the right kidney are also within normal limits. There is an approximately 0.8 cm calculus now seen in the lower pole of the left kidney with mild left hydronephrosis. The previously identified 0.7 cm calculus at the left ureteropelvic junction is not apparent. There is no evidence of free fluid within the abdomen or pelvis. No organized fluid collection is identified. There is no evidence of localized inflammation. IMPRESSION: 0.8 cm calculus in the lower pole of the left kidney may have migrated retrograde from the ureteropelvic junction. Clinical correlation is recommended. No other evidence of urinary tract obstruction is present. Dictated by: Dictated on workstation # [id number]
[2018-11-29 17:54] LABS: BILIRUBIN,URINE NEGATIVE (NEGATIVE); CLARITY,URINE CLEAR; COLOR,URINE YELLOW; GLUCOSE, URINE (UA) NEGATIVE (NEGATIVE); KETONES,URINE NEGATIVE (NEGATIVE); LEUKOCYTE ESTERASE ,URINE NEGATIVE (NEGATIVE); NITRITE,URINE NEGATIVE (NEGATIVE); PH,URINE 6.5 (5-9); PROTEIN,URINE NEGATIVE (NEGATIVE); UROBILINOGEN,URINE NORMAL (NORMAL)
[2018-11-29 17:57] LABS: BACTERIA,URINE NEGATIVE /HPF; CALCIUM OXALATE CRYSTALS,UR FEW /LPF
[2018-11-29 18:01] LABS: AMPHETAMINE SCREEN, URINE POSITIVE (NEGATIVE)
[2018-11-29 18:02] LABS: BARBITURATE SCREEN URINE NEGATIVE (NEGATIVE); BENZODIAZEPINES SCREEN URINE NEGATIVE (NEGATIVE); CANNABINOID SCREEN, URINE NEGATIVE (NEGATIVE); COCAINE SCREEN URINE NEGATIVE (NEGATIVE); METHADONE STAT NEGATIVE (NEGATIVE); METHAMPHETAMINE SCREEN URINE S NEGATIVE (NEGATIVE); OPIATE SCREEN URINE NEGATIVE (NEGATIVE); OXYCODONE STAT NEGATIVE (NEGATIVE); PROPOXYPHENE STAT NEGATIVE (NEGATIVE); TRICYCLIC ANTIDEPRESSANTS SCRE NEGATIVE (NEGATIVE)
[2018-11-29 18:17] VITALS: BP 138/76
== END 2018-11-29 18:17 | disposition home or self-care (01) ==
LOC: EDUNIT# 14:41 → ER 14:44
DX: N20.0 Calculus of kidney (principal); F12.10 Cannabis abuse, uncomplicated; F15.10 Other stimulant abuse, uncomplicated; Z77.22 Contact with and (suspected) exposure to environmental tobacco smoke (acute) (chronic); Z86.14 Personal history of Methicillin resistant Staphylococcus aureus infection
CPT/HCPCS: 36415; 73630; 74018; 74176; 80053; 80306; 81000; 83690; 85025

== ENCOUNTER 2018-12-20 15:43 | Emergency (ER) | payer SELFPAY ==
[~2018-12-20] VITALS: Ht 182.9 cm; Wt 59.0 kg
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
--- NOTE | 2018-12-20 16:33 | Diagnostic Imaging Report ---
INDICATION: Left rib injury. FINDINGS: Three views of the left ribs do not show any displaced fractures. There is no effusion or pneumothorax. IMPRESSION: Negative left ribs. Incidentally noted is an 8 mm calcification in the region of the left renal pelvis, consistent with a renal calculus. Dictated by: Dictated on workstation # [id number]
[2018-12-20] MEDS ORDERED: KETOROLAC 60 MG/2 ML VIAL IM ONE (16:45)
[2018-12-20 17:03] VITALS: BP 146/88
== END 2018-12-20 17:03 | disposition home or self-care (01) ==
LOC: EDUNIT# 15:43 → ER 15:44
DX: S20.212A Contusion of left front wall of thorax, initial encounter (principal); F12.10 Cannabis abuse, uncomplicated; F15.10 Other stimulant abuse, uncomplicated; R40.2142 Coma scale, eyes open, spontaneous, at arrival to emergency department; R40.2252 Coma scale, best verbal response, oriented, at arrival to emergency department; R40.2362 Coma scale, best motor response, obeys commands, at arrival to emergency department; Z87.442 Personal history of urinary calculi; Z86.14 Personal history of Methicillin resistant Staphylococcus aureus infection; Z77.22 Contact with and (suspected) exposure to environmental tobacco smoke (acute) (chronic); Y04.8XXA Assault by other bodily force, initial encounter
CPT/HCPCS: 71100; 96372

== ENCOUNTER 2018-12-30 15:45 | Emergency (ER) | payer SELFPAY ==
--- OUTSIDE RECORDS SUMMARY | 2018-12-30 16:01 | XMS REPORT ---
Author Author Migration, Doctor Organization [facility] Address Unknown Phone Unavailable Care Team Providers Care Protective Clothing Issuer Name Role Phone Migration, Doctor Unavailable Unavailable PROBLEMS Type Condition ICD9-CM Code [id number]-EX Code Onset Dates Condition Status SNOMED Code Problem Psoriasis L40.9 Active 7721603 Problem Anxiety F41.9 Active 96440693 Problem Renal lithiasis N20.0 Active 29736611 Problem Mood disorder F39 Active 72171916 ALLERGIES No Information ENCOUNTERS Encounter Location Date Diagnosis [facility] [address] [address] Nov, [facility] [address] [address] Oct, [facility] [address] [address] Oct, Abscess L02.91 [facility] [address] [address] Oct, Abscess L02.91 [facility] [id number] [place] [address] Oct, 2018 Abscess L02.91 [facility] [address] [address] Oct, Abscess L02.91 [facility] [id number] [place] [address] Oct, [facility] [address] [address] Oct, [facility] [address] [address] Oct, [facility] [address] [id number] Oct, [facility] [address] [address] Sep, [facility] [address] [address] Sep, [facility] [address] [address] Sep, Abscess of leg L02.[address] [id number] Sep, Abscess of leg, left L02.[address] [id number] Sep, Mood disorder F39 and Abscess L02.91 [facility] [address] [id number] [id number] Aug, Caries K02.9 and Dental examination Z01.[address] [id number] Aug, Anxiety F41.9 and Abscess L02.91 [facility] [address] [id number] [address] Jul, Mood disorder F39 [address] [id number] Jul, Tooth pain K08.89 and Anxiety F41.[address] [id number] Jul, Anxiety F41.9 and Psoriasis L40.9 [facility] [id number] [address] Jun, Abscess of scrotal wall N49.[address] [id number] Jun, Abscess L02.[address] [id number] Jun, Renal lithiasis N20.[address] [id number] Jun, Abscess, scrotum N49.2 and Mood disorder F39 [address] [id number] May, Renal lithiasis N20.0 [facility] [address] [address] Feb, Closed fracture of right hand with routine healing, subsequent encounter S62.91XD [facility] [address] [address] January, [facility] [id number] [place] [id number] Nov, Dental examination Z01.20 and Dental caries K02.9 [facility] [id number] [place] [address] Jun, Hospital discharge follow-up Z09 and Closed nondisplaced fracture of proximal phalanx of right great toe with routine healing, subsequent encounter S92.414D [facility] [address] [place] [address] Feb, MRSA (methicillin resistant Staphylococcus aureus) infection A49.02 [facility] [address] [place] [address] Jul, Unspecified injury of left wrist, hand and finger(s), subsequent encounter S69.92XD [facility] [address] [id number] Mar, Dental examination V72.2 [facility] [address] [address] Dec, [facility] [address] [address] Dec, [facility] [address] [place] [address] Oct, [facility] [address] [address] Oct, [facility] [address] [address] Oct, [facility] [address] [facility] [id number] [address] Oct, [facility] [address] [facility] [id number] [address] Oct, [facility] [address] [facility] [id number] [address] Aug, [facility] [address] [facility] [id number] [address] Aug, [facility] [address] [facility] [id number] [address] Aug, [facility] [address] [facility] [id number] [address] Aug, [facility] [address] [address] Aug, [facility] [address] [address] Aug, [facility] [address] [address] Aug, [facility] [address] [address] Aug, [facility] [id number] [address] Dec, IMMUNIZATIONS No Known Immunizations SOCIAL HISTORY Never Assessed REASON FOR VISIT [facility] PLAN OF CARE VITAL SIGNS MEDICATIONS Unknown Medications RESULTS No Results PROCEDURES No Known procedures INSTRUCTIONS MEDICATIONS ADMINISTERED No Known Medications MEDICAL (GENERAL) HISTORY Type Description Date Medical History Adjustment disorder with mixed disturbance of emotions and conduct Medical History Other psoriasis Surgical History No Surgical history information
--- OUTSIDE RECORDS SUMMARY | 2018-12-30 16:01 | XMS REPORT ---
Author Author Migration, Doctor Organization [facility] Address Unknown Phone Unavailable Care Team Providers Care Residential Case Manager Name Role Phone Migration, Doctor Unavailable Unavailable PROBLEMS Type Condition ICD9-CM Code [id number] Code Onset Dates Condition Status SNOMED Code Problem Psoriasis L40.9 Active 6997453 Problem Anxiety F41.9 Active 34385645 Problem Renal lithiasis N20.0 Active 53039899 Problem Mood disorder F39 Active 73884610 ALLERGIES No Information ENCOUNTERS Encounter Location Date Diagnosis [facility] [address] [address] Nov, [facility] [address] [address] Oct, [facility] [address] [address] Oct, Abscess L02.91 [facility] [address] [address] Oct, Abscess L02.91 [facility] [id number] [place] [address] 15 Oct, 2018 Abscess L02.91 [facility] [address] [address] Oct, Abscess L02.91 [facility] [id number] [place] [address] Oct, [facility] [address] [address] Oct, [facility] [id number] [place] [address] Oct, [facility] [address] [id number] Oct, [facility] [address] [address] Sep, [facility] [address] [address] Sep, [facility] [address] [address] Sep, Abscess of leg L02.[address] [id number] Sep, Abscess of leg, left L02.[address] [id number] Sep, Mood disorder F39 and Abscess L02.91 [facility] [address] [id number] [id number] Aug, Caries K02.9 and Dental examination Z01.[address] [id number] Aug, Anxiety F41.9 and Abscess L02.91 [facility] [address] [id number] [address] Jul, Mood disorder F39 [address] [id number] Jul, Tooth pain K08.89 and Anxiety F41.[address] [id number] Jul, Anxiety F41.9 and Psoriasis L40.9 [facility] [address] [id number] [address] Jun, Abscess of scrotal wall N49.[address] [id number] Jun, Abscess L02.[address] [id number] Jun, Renal lithiasis N20.[address] [id number] Jun, Abscess, scrotum N49.2 and Mood disorder F39 [address] [id number] May, Renal lithiasis N20.0 [facility] [address] [address] Feb, Closed fracture of right hand with routine healing, subsequent encounter S62.91XD [facility] [address] [address] January, [facility] [id number] [place] [id number] Nov, Dental examination Z01.20 and Dental caries K02.9 [facility] [id number] [place] [address] Jun, Hospital discharge follow-up Z09 and Closed nondisplaced fracture of proximal phalanx of right great toe with routine healing, subsequent encounter S92.414D [facility] [address] [place] [address] Feb, MRSA (methicillin resistant Staphylococcus aureus) infection A49.02 [facility] [address] [place] [address] Jul, Unspecified injury of left wrist, hand and finger(s), subsequent encounter S69.92XD [facility] [address] [id number] Mar, Dental examination V72.2 [facility] [address] [address] Dec, [facility] [address] [address] Dec, [facility] [address] [place] [address]- [address] Oct, [facility] [address] [address] Oct, [facility] [address] [address] Oct, [facility] [address] [facility] [id number], [place] [address] Oct, [facility] [address] [facility] [id number], [place] [address] Oct, [facility] [address] [facility] [id number], [place] [address] Aug, [facility] [address] [facility] [id number] [address] Aug, [facility] [address] [facility] [id number], [place] [address] Aug, [facility] [address] [facility] [id number], [place] [address] Aug, [facility] [address], [place] [address] Aug, [facility] [address] [place] [address] Aug, [facility] [address], [place] [address] Aug, [facility] [address], [place] [address] Aug, [facility] [address], [place] [address] Dec, IMMUNIZATIONS No Known Immunizations SOCIAL HISTORY Never Assessed REASON FOR VISIT [facility] [place] PLAN OF CARE VITAL SIGNS MEDICATIONS Medication Instructions Dosage Frequency Start Date End Date Duration Status amitriptyline 25 mg take 1 tablet by Oral route 1 time per day at bedtimevoucher this fill. Dec, Active RESULTS No Results PROCEDURES No Known procedures INSTRUCTIONS MEDICATIONS ADMINISTERED No Known Medications MEDICAL (GENERAL) HISTORY Type Description Date Medical History Adjustment disorder with mixed disturbance of emotions and conduct Medical History Other psoriasis Surgical History No Surgical history information
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
--- NOTE | 2018-12-30 16:08 | NUR ---
Went to waiting room to call pt. Registration reported pt just left at 1607.
== END 2018-12-30 16:10 | disposition left against medical advice (07) ==
LOC: EDUNIT# 15:45 → ER 15:46
DX: H92.01 Otalgia, right ear (principal)

== ENCOUNTER 2019-01-26 14:50 | Emergency (ER) | payer SELFPAY ==
[~2019-01-26] VITALS: Ht 198.1 cm; Wt 63.5 kg
--- OUTSIDE RECORDS SUMMARY | 2019-01-26 15:04 | XMS REPORT ---
Author Author Migration, Doctor Organization [facility] Address Unknown Phone Unavailable Care Team Providers Care Typing Pool Supervisor Name Role Phone Migration, Doctor Unavailable Unavailable PROBLEMS Type Condition ICD9-CM Code [id number] Code Onset Dates Condition Status SNOMED Code Problem Psoriasis L40.9 Active 5273480 Problem Anxiety F41.9 Active 65986341 Problem Renal lithiasis N20.0 Active 72554118 Problem Mood disorder F39 Active 77077126 ALLERGIES No Information ENCOUNTERS Encounter Location Date Diagnosis [place] [address] [address] Dec, [facility] [address] [address] Nov, [facility] [address] [address] Oct, [facility] [address] [address] Oct, Abscess L02.91 [facility] [address] [place] [id number] [place] [address] Oct, Abscess L02.91 [facility] [address] [address] 15 Oct, 2018 Abscess L02.91 [facility] [address] [place] [id number] [place] [address] Oct, Abscess L02.91 [facility] [address] [address] Oct, [facility] [address] [address] Oct, [facility] [address] [address] Oct, [facility] [address] [address] Oct, [facility] [id number] [place] [address] Sep, [facility] [id number] [place] [address] Sep, [facility] [address] [place] [address] Sep, Abscess of leg L02.[address] [id number] Sep, Abscess of leg, left L02.[address] [id number] Sep, Mood disorder F39 and Abscess L02.91 [facility] [address] [place] [phone] Aug, Caries K02.9 and Dental examination Z01.[address] [id number] Aug, Anxiety F41.9 and Abscess L02.91 [facility] [address] [place] [address] Jul, Mood disorder F39 [address] [id number] Jul, Tooth pain K08.89 and Anxiety F41.[address] [id number] Jul, Anxiety F41.9 and Psoriasis L40.9 [facility] [address], [place] [address] Jun, Abscess of scrotal wall N49.[address] [id number] Jun, Abscess L02.[address] [id number] Jun, Renal lithiasis N20.[address] [id number] Jun, Abscess, scrotum N49.2 and Mood disorder F39 [facility] [address] [facility] [phone] May, Renal lithiasis N20.0 [facility] [id number] [place] [address] Feb, Closed fracture of right hand with routine healing, subsequent encounter S62.91XD [facility] [address] [place] [id number] [place] [address] January, [facility] [address] [place] [id number] [place] [phone] Nov, Dental examination Z01.20 and Dental caries K02.9 [place] [address] [place] [id number] [place] [address] Jun, Hospital discharge follow-up Z09 and Closed nondisplaced fracture of proximal phalanx of right great toe with routine healing, subsequent encounter S92.414D [place] [id number] [place] [phone] Feb, MRSA (methicillin resistant Staphylococcus aureus) infection A49.02 [place] [address] [place] [id number] [place] [address] Jul, Unspecified injury of left wrist, hand and finger(s), subsequent encounter S69.92XD [facility] [address] [place] [id number] Mar, Dental examination V72.2 [facility] [id number] [place] [address] Dec, [facility] [address] [place] [id number] [place] [phone] Dec, [facility] [address] [place] [id number] [place] [address] Oct, [facility] [address] [place] [id number] [place] [phone] Oct, [place] [address] [facility] [id number] [address] Oct, 2014 [facility] [address] [facility] [id number], [place] [address] Oct, [facility] [address] [facility] [id number], [place] [address] Oct, [facility] [id number] [place] [address] Aug, [facility] [address] [facility] [id number], [place] [address] Aug, [facility] [address], [place] [address] Aug, [facility] [address] [address] Aug, [facility] [address] [place] [address] Aug, [facility] [address], [place] [address] Aug, [facility] [address] [place] [address] Aug, [facility] [address] [place] [address] Aug, [facility] [address] [place] [id number] [address] Dec, IMMUNIZATIONS No Known Immunizations SOCIAL HISTORY Never Assessed REASON FOR VISIT EMR[place] [place] CARE VITAL SIGNS MEDICATIONS Unknown Medications RESULTS No Results PROCEDURES No Known procedures INSTRUCTIONS MEDICATIONS ADMINISTERED No Known Medications MEDICAL (GENERAL) HISTORY Type Description Date Medical History Adjustment disorder with mixed disturbance of emotions and conduct Medical History Other psoriasis Surgical History No Surgical history information
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
--- NOTE | 2019-01-26 15:10 | NUR ---
Pt. brought from the waiting room- EKG completed at 1507.
[2019-01-26] MEDS ORDERED: KETOROLAC 30 MG/ML VIAL IVP ONE (16:15)
--- NOTE | 2019-01-26 16:27 | Diagnostic Imaging Report ---
INDICATION: Chest pain. TECHNIQUE: Single view chest 4:15 PM. CORRELATION STUDY: 08/18/2016 FINDINGS: The heart size, mediastinal configuration and pulmonary vascularity are within normal limits. The lungs are clear with no consolidating infiltrate. There is no significant effusion or pneumothorax. IMPRESSION: 1. Stable, negative portable chest. Dictated by: Dictated on workstation # [id number]
--- NOTE | 2019-01-26 16:41 | ED Cardiac General ---
History of Present Illness General Chief Complaint: Chest Pain Stated Complaint: CHEST PAIN Nursing Triage Note: Patient advises chest pain that began yesterday at 1900. He advises pain with movement of upper extremities. Pain is reproducable to the right side of the chest and patient states pain with coughing. Source: patient Exam Limitations: no limitations History of Present Illness Date Seen by Provider: January 26, 2019 Time Seen by Provider: 16:00 Allergies and Home Medications Allergies Coded Allergies: No Known Drug Allergies (Unverified , 01/26/19) Past Pysstqe-Yjiets-Krmqpk Hx Patient Social History Alcohol Use: Denies Use Recreational Drug Use: No Drug of Choice: UDS + FOR THC, METH/AMPHETAMINES previous Type Used: Cigarettes 2nd Hand Smoke Exposure: Yes Recent Foreign Travel: No Contact w/Someone Who Travel: No Recent Infectious Disease Expo: No Recent Hopitalizations: No Immunizations Up To Date Tetanus Booster (TDap): Less than 5yrs Seasonal Allergies Seasonal Allergies: No Past Medical History Surgeries: Yes (BMT'S) Ear Surgery Respiratory: No Cardiac: No Neurological: No Reproductive Disorders: No Sexually Transmitted Disease: No Genitourinary: Yes Kidney Stones Gastrointestinal: No Musculoskeletal: No Endocrine: No HEENT: Yes (DENTAL DECAY) Cancer: No Psychosocial: No Integumentary: Yes (MRSA ABSCESSES/CELLULITIS,) Blood Disorders: No Family Medical History No Pertinent Family Hx Physical Exam Vital Signs Vital Signs - First Documented Capillary Refill : Less Than 3 Seconds Height, Weight, BMI Height: 6'6.00" Weight: 140lbs. 0oz. [id number]; 15.40 BMI Method:Stated Progress/Results/Core Measures Results/Orders Lab Results Laboratory Tests Test 01/26/19 15:16 Range/Units Troponin I < 0.028 <0.028 NG/ML My Orders Orders - FRANCIS OTERO Troponin I (01/26/19 16:01) Chest 1 View, Ap/Pa Only (01/26/19 16:01) Ekg Tracing (01/26/19 16:01) Ed Iv/Invasive Line Start (01/26/19 16:01) Monitor-Rhythm Ecg Trace Only (01/26/19 16:01) Ketorolac Injection (Toradol Injection) (01/26/19 16:15) Medications Given in ED Current Medications Medications Dose Ordered Sig/Shayan Route Start Time Stop Time Status Last Admin Dose Admin Ketorolac Tromethamine 30 mg ONCE ONCE IVP 01/26/19 16:15 01/26/19 16:16 DC 01/26/19 16:15 30 MG Vital Signs/I&O 01/26/19 01/26/19 15:06 15:06 Pulse 78 Resp 14 B/P (MAP) 126/68 (87) Pulse Ox 98 O2 Delivery Room Air Room Air Blood Pressure Mean: 87 Departure Impression Primary Impression: Pleuritic chest pain Disposition: HOME, SELF-CARE Condition: Stable/Unchanged Departure-Patient Inst. Decision time for Depature: 16:41 Referrals: [facility] (PCP/Family) Primary Care Physician Patient Instructions: Pleuritic Chest Pain (DC) Add. Discharge Instructions: Continue to use ibuprofen and Tylenol as directed by the bottle for pain relief. Follow-up with your primary care provider within 1 week for recheck. Return back to the emergency room for worsening symptoms or concerns as needed. All discharge instructions reviewed with patient and/or family. Voiced understanding. FRANCIS OTERO January 26, 2019 16:41
[2019-01-26 16:51] VITALS: BP 126/86
== END 2019-01-26 16:52 | disposition home or self-care (01) ==
LOC: EDUNIT# 14:50 → ER 14:52
DX: R07.81 Pleurodynia (principal); F12.10 Cannabis abuse, uncomplicated; F15.10 Other stimulant abuse, uncomplicated; Z77.22 Contact with and (suspected) exposure to environmental tobacco smoke (acute) (chronic); Z87.440 Personal history of urinary (tract) infections
CPT/HCPCS: 36415; 71045; 84484; 93005; 93041

== ENCOUNTER 2019-05-16 22:45 | Emergency (ER) | payer SELFPAY ==
[~2019-05-16] VITALS: Ht 182 cm; Wt 68.0 kg
[2019-05-16 23:37] LABS: BILIRUBIN,URINE NEGATIVE (NEGATIVE); CLARITY,URINE CLEAR; COLOR,URINE YELLOW; GLUCOSE, URINE (UA) NEGATIVE (NEGATIVE); KETONES,URINE NEGATIVE (NEGATIVE); LEUKOCYTE ESTERASE ,URINE 1+ (NEGATIVE); NITRITE,URINE NEGATIVE (NEGATIVE); PH,URINE 6.5 (5-9); PROTEIN,URINE 2+ (NEGATIVE); UROBILINOGEN,URINE NORMAL (NORMAL)
[2019-05-16 23:45] LABS: BACTERIA,URINE TRACE /HPF; RBC,URINE >100 /HPF; WBC,URINE RARE /HPF
[2019-05-16 23:49] LABS: AMPHETAMINE SCREEN, URINE NEGATIVE (NEGATIVE); BARBITURATE SCREEN URINE POSITIVE (NEGATIVE); BENZODIAZEPINES SCREEN URINE NEGATIVE (NEGATIVE); CANNABINOID SCREEN, URINE NEGATIVE (NEGATIVE); COCAINE SCREEN URINE NEGATIVE (NEGATIVE); METHADONE STAT NEGATIVE (NEGATIVE); METHAMPHETAMINE SCREEN URINE S NEGATIVE (NEGATIVE); OPIATE SCREEN URINE NEGATIVE (NEGATIVE); OXYCODONE STAT NEGATIVE (NEGATIVE); PROPOXYPHENE STAT NEGATIVE (NEGATIVE); TRICYCLIC ANTIDEPRESSANTS SCRE NEGATIVE (NEGATIVE)
[2019-05-17] MEDS ORDERED: KETOROLAC 30 MG/ML VIAL IVP ONE
[2019-05-17 00:39] LABS: BASOPHILS % (AUTO) 0 % (0-10); EOSINOPHILS # (AUTO) 0.3 10^3/uL (0.0-0.3); EOSINOPHILS % (AUTO) 2 % (0-10); HEMATOCRIT 43 % (40-54); LYMPHOCYTES # (AUTO) 2.6 X 10^3 (1.0-4.0); LYMPHOCYTES % (AUTO) 19 % (12-44); MEAN CORPUSCULAR HEMOGLOBIN 31 PG (25-34); MEAN CORPUSCULAR HGB CONC 33 G/DL (32-36); MEAN CORPUSCULAR VOLUME 94 FL (80-99); MEAN PLATELET VOLUME 10.2 FL (7.4-10.4); MONOCYTES # (AUTO) 1.2 X 10^3 (0.0-1.0); MONOCYTES % (AUTO) 9 % (0-12); NEUTROPHILS # (AUTO) 9.4 X 10^3 (1.8-7.8); NEUTROPHILS % (AUTO) 69 % (42-75); PLATELET COUNT 246 10^3/uL (130-400); RED CELL DISTRIBUTION WIDTH 14.3 % (10.0-14.5); WHITE BLOOD COUNT 13.5 10^3/uL (4.3-11.0)
[2019-05-17 00:57] LABS: ALANINE AMINOTRANSFERASE 23 U/L (0-55); ALBUMIN 4.3 GM/DL (3.2-4.5); ALKALINE PHOSPHATASE 85 U/L (40-136); BILIRUBIN,TOTAL 0.3 MG/DL (0.1-1.0); BUN/CREATININE RATIO 16; CALCIUM 9.5 MG/DL (8.5-10.1); CARBON DIOXIDE 26 MMOL/L (21-32); CHLORIDE 108 MMOL/L (98-107); CREATININE SERUM 1.28 MG/DL (0.60-1.30); GFR ESTIMATED > 60; GLUCOSE 79 MG/DL (70-105); POTASSIUM 4.1 MMOL/L (3.6-5.0); SODIUM 144 MMOL/L (135-145); TOTAL PROTEIN 7.2 GM/DL (6.4-8.2)
[2019-05-17] MEDS ORDERED: LACTATED RINGERS 1,000 ML IV ONE (00:59)
--- NOTE | 2019-05-17 01:13 | ED Abdominal Pain ---
General Chief Complaint: General Problems/Pain Stated Complaint: GROIN PAIN Nursing Triage Note: PT AMBULATES TO RM 5 WITH C/O LEFT GROIN PAIN X 1 DAY. PT STATES HE'S TAKEN ALEVE AND TYLENOL FOR PAIN AND IS UNRELIEVED. RATES PAIN 8/10 Sepsis Screen: No Definite Risk Source of Information: Patient History of Present Illness Date Seen by Provider: May 16, 2019 Time Seen by Provider: 23:05 Initial Comments PT ARRIVES VIA POV C/O PAIN TO LEFT GROIN/LLQ SINCE YESTERDAY PAIN IS WORSE WITH WALKING OR SITTING, AND IS BETTER IF HE PUSHES ON IT NO NAUSEA/VOMITING NO URINARY SYMPTOMS NO PROBLEMS WITH BM'S NO FEVER NO SWELLING TO AREA NO INJURY, HEAVY LIFTING, ETC. HAS NOT TAKEN ANYTHING FOR PAIN SYMPTOMS NO DIFFERENT TODAY HAS NOT SOUGHT CARE UNTIL TODAY. PCP: [place], SHANKAR CALI Allergies and Home Medications Allergies Coded Allergies: No Known Drug Allergies (Unverified , 01/26/19) Home Medications Ciprofloxacin HCl 500 Mg Tablet, 500 MG PO BID Prescribed by: ROLAN CARDONA on 05/17/19126 Ketorolac Tromethamine 10 Mg Tablet, 10 MG PO Q6H Prescribed by: ROLAN CARDONA on 05/17/19126 Tamsulosin HCl 0.4 Mg Cap, 0.4 MG PO DAILY Prescribed by: ROLAN CARDONA on 05/17/19126 Tramadol HCl 50 Mg Tablet, 50 MG PO Q4H PRN for PAIN-MODERATE Prescribed by: ROLAN CARDONA on 05/17/19126 Patient Home Medication List Home Medication List Reviewed: Yes Review of Systems Review of Systems Constitutional: no symptoms reported; No fever Respiratory: No Symptoms Reported Cardiovascular: No Symptoms Reported Gastrointestinal: See HPI, Abdominal Pain; Denies Constipated, Denies Diarrhea, Denies Nausea, Denies Vomiting Genitourinary: No Symptoms Reported Musculoskeletal: no symptoms reported; No back pain Skin: no symptoms reported Psychiatric/Neurological: No Symptoms Reported Endocrine: No Symptoms Reported Hematologic/Lymphatic: No Symptoms Reported Past Sgrzqos-Ddvftg-Qmerfj Hx Patient Social History Alcohol Use: Rarely Uses Recreational Drug Use: Yes (UDS + FOR THC, METH/ AMPHETAMINES IN PAST) Drug of Choice: UDS + FOR THC, METH/AMPHETAMINES previous Smoking Status: Current Everyday Smoker (1-2 PPD) Type Used: Cigarettes 2nd Hand Smoke Exposure: Yes Recent Foreign Travel: No Contact w/Someone Who Travel: No Recent Infectious Disease Expo: No Recent Hopitalizations: No Physical Abuse: No Sexual Abuse: No Mistreated: No Fear: No Immunizations Up To Date Tetanus Booster (TDap): Less than 5yrs Seasonal Allergies Seasonal Allergies: No Past Medical History Surgeries: Yes (BMT'S) Ear Surgery Respiratory: No Cardiac: No Neurological: No Reproductive Disorders: No Sexually Transmitted Disease: No Genitourinary: Yes Kidney Stones Gastrointestinal: No Musculoskeletal: No Endocrine: No HEENT: Yes (DENTAL DECAY; BMT'S ) Chronic Ear Infection Cancer: No Psychosocial: No Integumentary: Yes (MRSA ABSCESSES/CELLULITIS,) Blood Disorders: No Family Medical History No Pertinent Family Hx HAS BEEN INCARCERATED Physical Exam Vital Signs Vital Signs - First Documented 05/16/19 22:53 Temp 37.0 Pulse 98 Resp 20 B/P (MAP) 142/89 Pulse Ox 98 O2 Delivery Room Air Capillary Refill : Less Than 3 Seconds Height/Weight/BMI Height: 6'6.00" Weight: 140lbs. 0oz. 63.284413pj; 20.00 BMI Method:Stated General Appearance: no apparent distress, thin, other (DIRTY, MALODOROUS, WALKS UPRIGHT AND MOVES WITHOUT DIFFICULTY. DOES NOT APPEAR TO BE IN ANY DISCOMFORT OR DISTRESS, SMILING. ) Respiratory: normal breath sounds, no respiratory distress, no accessory muscle use Cardiovascular: regular rate, rhythm Gastrointestinal: normal bowel sounds, soft; No distended, No guarding, No rebound; tenderness (LLQ/LEFT INGUINAL TENDERNESS. 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, no motor/sensory deficits, alert, normal mood/affect, oriented x 3 Skin: normal color, warm/dry, tattoos/piercings Progress/Results/Core Measures Results/Orders Lab Results Laboratory Tests Test 05/16/19 23:31 05/17/19 00:30 Range/Units Urine Color YELLOW Urine Clarity CLEAR Urine pH 6.5 5-9 Urine Specific [place] 1.020 1.016-1.022 Urine Protein 2+ H NEGATIVE Urine Glucose (UA) NEGATIVE NEGATIVE Urine Ketones NEGATIVE NEGATIVE Urine Nitrite NEGATIVE NEGATIVE Urine Bilirubin NEGATIVE NEGATIVE Urine Urobilinogen NORMAL NORMAL MG/DL Urine Leukocyte Esterase 1+ H NEGATIVE Urine RBC (Auto) 3+ H NEGATIVE Urine RBC >100 H /HPF Urine WBC RARE /HPF Urine Squamous Epithelial Cells 2-5 /HPF Urine Crystals NONE /LPF Urine Bacteria TRACE /HPF Urine Casts NONE /LPF Urine Mucus MODERATE H /LPF Urine Culture Indicated NO Urine Opiates Screen NEGATIVE NEGATIVE Urine Oxycodone Screen NEGATIVE NEGATIVE Urine Methadone Screen NEGATIVE NEGATIVE Urine Propoxyphene Screen NEGATIVE NEGATIVE Urine Barbiturates Screen POSITIVE H NEGATIVE Ur Tricyclic Antidepressants Screen NEGATIVE NEGATIVE Urine Phencyclidine Screen NEGATIVE NEGATIVE Urine Amphetamines Screen NEGATIVE NEGATIVE Urine Methamphetamines Screen NEGATIVE NEGATIVE Urine Benzodiazepines Screen NEGATIVE NEGATIVE Urine Cocaine Screen NEGATIVE NEGATIVE Urine Cannabinoids Screen NEGATIVE NEGATIVE White Blood Count 13.5 H 4.3-11.0 10^3/uL Red Blood Count 4.57 4.35-5.85 10^6/uL Hemoglobin 14.0 13.3-17.7 G/DL Hematocrit 43 40-54 % Mean Corpuscular Volume 94 80-99 FL Mean Corpuscular Hemoglobin 31 25-34 PG Mean Corpuscular Hemoglobin Concent 33 32-36 G/DL Red Cell Distribution Width 14.3 10.0-14.5 % Platelet Count 246 130-400 10^3/uL Mean Platelet Volume 10.2 7.4-10.4 FL Neutrophils (%) (Auto) 69 42-75 % Lymphocytes (%) (Auto) 19 12-44 % Monocytes (%) (Auto) 9 0-12 % Eosinophils (%) (Auto) 2 0-10 % Basophils (%) (Auto) 0 0-10 % Neutrophils # (Auto) 9.4 H 1.8-7.8 X 10^3 Lymphocytes # (Auto) 2.6 1.0-4.0 X 10^3 Monocytes # (Auto) 1.2 H 0.0-1.0 X 10^3 Eosinophils # (Auto) 0.3 0.0-0.3 10^3/uL Basophils # (Auto) 0.0 0.0-0.1 10^3/uL Sodium Level 144 135-145 MMOL/L Potassium Level 4.1 3.6-5.0 MMOL/L Chloride Level 108 H 98-107 MMOL/L Carbon Dioxide Level 26 21-32 MMOL/L Anion Gap 10 5-14 MMOL/L Blood Urea Nitrogen 21 H 7-18 MG/DL Creatinine 1.28 0.60-1.30 MG/DL Estimat Glomerular Filtration Rate > 60 BUN/Creatinine Ratio 16 Glucose Level 79 70-105 MG/DL Calcium Level 9.5 8.5-10.1 MG/DL Corrected Calcium 9.3 8.5-10.1 MG/DL Total Bilirubin 0.3 0.1-1.0 MG/DL Aspartate Amino Transf (AST/SGOT) 29 5-34 U/L Alanine Aminotransferase (ALT/SGPT) 23 0-55 U/L Alkaline Phosphatase 85 40-136 U/L Total Protein 7.2 6.4-8.2 GM/DL Albumin 4.3 3.2-4.5 GM/DL My Orders Orders - ROLAN CARDONA DO Drug Screen Stat (Urine) (05/16/19 23:04) Ua Culture If Indicated (05/16/19 23:04) Ed Iv/Invasive Line Start (05/16/19 23:40) Cbc With Automated Diff (05/16/19 23:40) Comprehensive Metabolic Panel (05/16/19 23:40) Ketorolac Injection (Toradol Injection) (05/17/19 00:00) Acute Abd Series (05/17/19 00:05) Ct Abd/Pelvis Wo(Kidney Stone) (05/17/19 ) Ed Iv/Invasive Line Start (05/17/19 00:59) Lactated Ringers (Lr 1000 Ml Iv Solution (05/17/19 00:59) Levofloxacin Tablet (Levaquin Tablet) (05/17/19 01:30) Tamsulosin Capsule (Flomax Capsule) (05/17/19 01:30) Rx-Tramadol Hcl (Rx-Ultram) (05/17/19 01:25) Medications Given in ED Current Medications Medications Dose Ordered Sig/Shayan Route Start Time Stop Time Status Last Admin Dose Admin Ketorolac Tromethamine 30 mg ONCE ONCE IVP 05/17/19 00:00 05/17/19 00:01 DC 05/17/19 01:22 30 MG Levofloxacin 500 mg ONCE ONCE PO 05/17/19 01:30 05/17/19 01:31 DC 05/17/19 01:35 500 MG Vital Signs/I&O 05/16/19 05/17/19 22:53 01:38 Temp 37.0 37.0 Pulse 98 98 Resp 20 20 B/P (MAP) 142/89 131/88 (106) Pulse Ox 98 97 O2 Delivery Room Air Room Air Blood Pressure Mean: 106 Progress Progress Note : Progress Note PAIN RESOLVED, NOW ANXIOUS TO GO HOME REFUSED IV FLUIDS--STATES "I DON'T FEEL DEHYDRATED" AFTER DISCUSSING TEST RESULTS, PT NOW ADMITS TO HISTORY OF KIDNEY STONES, STATES LAST TIME WAS "4 MONTHS AGO" PT NEVER FOLLOWED UP WITH UROLOGY PT ADVISED OF IMPORTANCE OF FOLLOW UP WITH UROLOGY AND LIKELIHOOD THAT THIS STONE MAY NEED INTERVENTION, BASED ON SIZE AND LOCATION . Diagnostic Imaging Comments ABDOMEN XRAYS--CALCIFICATION LATERAL TO LEFT L3 VERTEBRA, CONSTIPATION. PENDING RADIOLOGIST REVIEW CT ABDOMEN/ PELVIS---MODERATE LEFT HYDRONEPHROSIS WITH 10 X 6 MM UPJ STONE--PER [facility] VIA FAX AT 8445 Reviewed: Reviewed by Me Departure Impression Primary Impression: Left ureteral calculus Disposition: HOME, SELF-CARE Condition: Improved Departure-Patient Inst. Referrals: [facility] (PCP/Family) Primary Care Physician ZENIA HUTCHINS MD Patient Instructions: How to Strain Your Urine, Kidney Stones (DC) Add. Discharge Instructions: LOTS OF CLEAR LIQUIDS STRAIN ALL URINE--RETURN ANY STONES TO DR. HUTCHINS'S OFFICE FOLLOW UP WITH DR. HUTCHINS THIS WEEK FOR FURTHER CARE, CALL IN AM FOR APPOINTMENT All discharge instructions reviewed with patient and/or family. Voiced understanding. Scripts Ketorolac Tromethamine (Ketorolac Tromethamine) 10 Mg Tablet 10 MG PO Q6H for Pain, #15 TAB Prov: ROLAN CARDONA DO 05/17/19 Tramadol HCl (Ultram) 50 Mg Tablet 50 MG PO Q4H PRN for PAIN-MODERATE for 3 Days, TAB Prov: AMPARO CARDONAA K DO 05/17/19 Tamsulosin HCl (Flomax) 0.4 Mg Cap 0.4 MG PO DAILY, #10 CAP Prov: ROLAN CARDONA DO 05/17/19 Ciprofloxacin HCl (Cipro) 500 Mg Tablet 500 MG PO BID, #20 TAB Prov: AMPARO CARDONAA K DO 05/17/19 ROLAN CARDONA K DO May 17, 2019 01:13
[2019-05-17] MEDS ORDERED: KETO10TA PO ×2 (01:21→01:27)
[2019-05-17] MEDS ORDERED: TRAM-42 PO ×2 (01:21→01:27)
[2019-05-17] MEDS ORDERED: TAMS0.4C98 PO ×2 (01:21→01:27)
[2019-05-17] MEDS ORDERED: CIPR-225 PO ×2 (01:21→01:27)
[2019-05-17] MEDS ORDERED: RX-TRAMADOL 50 MG (ULTRAM) TAB PPK#4 PO STA (01:25)
[2019-05-17] MEDS ORDERED: LEVOFLOXACIN 500 MG TAB (LEVAQUIN) PO ONE (01:30)
[2019-05-17 01:38] VITALS: BP 131/88
[2019-05-17] MEDS: TAMSULOSIN 0.4 MG (FLOMAX) CAP PO SCH (01:49)
--- NOTE | 2019-05-17 06:08 | Diagnostic Imaging Report ---
PROCEDURE: CT urinary tract, rule out kidney stone. TECHNIQUE: Multiple contiguous axial images were obtained through the abdomen and pelvis without the use of intravenous contrast. Auto Exposure Controls were utilized during the CT exam to meet ALARA standards for radiation dose reduction. INDICATION: Abdominal pain. COMPARISONS: 11/29/2018. FINDINGS: Limited views of lower thorax are unremarkable. Liver is normal. No focal liver lesions are seen. Gallbladder is decompressed. No biliary ductal dilation. Pancreas, spleen and adrenal glands are normal. Right kidney is normal without stones or focal lesion. No right-sided hydronephrosis. There is an obstructing 10 x 6 mm stone at the left ureteropelvic junction with moderate left hydronephrosis. No other stones are seen. Urinary bladder is normal. Prostate is normal. No dilated loops large or small bowel. No abdominal or pelvic lymphadenopathy. No free fluid or air. There are no suspicious osseous lesions. IMPRESSION: 1. Obstructing 10 x 6 mm stone at the left ureteropelvic junction. There is associated moderate hydronephrosis. Dictated by: Dictated on workstation # [id number]
--- NOTE | 2019-05-17 07:24 | Diagnostic Imaging Report ---
Examination: Chest one view with abdomen 2 view. History: Constipation. Findings: Comparison is 11/29/2018. Lungs are clear without edema or pneumonia. No pleural effusion or pneumothorax. Heart size is normal. The bowel gas pattern is normal. The obstructing stone seen on the CT is noted adjacent to the left aspect of L3. There is no free air seen. Impression: 1. Clear lungs. 2. Left ureteral stone seen on CT is noted on plain film as well. 3. Normal bowel gas pattern. Dictated by: Dictated on workstation # [id number]
== END 2019-05-17 01:38 | disposition home or self-care (01) ==
LOC: EDUNIT# 22:45 → ER 22:47
DX: N13.2 Hydronephrosis with renal and ureteral calculous obstruction (principal); F17.210 Nicotine dependence, cigarettes, uncomplicated; Z87.442 Personal history of urinary calculi
CPT/HCPCS: 36415; 74022; 74176; 80053; 80306; 81000; 85025

== ENCOUNTER 2019-05-30 13:18 | Emergency (ER) | payer SELFPAY ==
[~2019-05-30] VITALS: Ht 182 cm; Wt 68.0 kg
[~2019-05-30 13:18] MED LIST changes: +CIPR-225 PO; +KETO10TA PO
[2019-05-30 13:33] VITALS: BP 127/91
[2019-05-30 13:39] LABS: BASOPHILS % (AUTO) 0 % (0-10); EOSINOPHILS # (AUTO) 0.2 10^3/uL (0.0-0.3); EOSINOPHILS % (AUTO) 3 % (0-10); HEMATOCRIT 45 % (40-54); HEMOGLOBIN 14.7 G/DL (13.3-17.7); LYMPHOCYTES # (AUTO) 1.7 X 10^3 (1.0-4.0); LYMPHOCYTES % (AUTO) 21 % (12-44); MEAN CORPUSCULAR HEMOGLOBIN 31 PG (25-34); MEAN CORPUSCULAR HGB CONC 33 G/DL (32-36); MEAN CORPUSCULAR VOLUME 95 FL (80-99); MONOCYTES # (AUTO) 0.6 X 10^3 (0.0-1.0); MONOCYTES % (AUTO) 7 % (0-12); NEUTROPHILS # (AUTO) 5.7 X 10^3 (1.8-7.8); NEUTROPHILS % (AUTO) 69 % (42-75); PLATELET COUNT 284 10^3/uL (130-400); RED CELL DISTRIBUTION WIDTH 13.8 % (10.0-14.5); WHITE BLOOD COUNT 8.3 10^3/uL (4.3-11.0)
[2019-05-30 13:44] LABS: BILIRUBIN,URINE NEGATIVE (NEGATIVE); CLARITY,URINE CLEAR; COLOR,URINE YELLOW; GLUCOSE, URINE (UA) NEGATIVE (NEGATIVE); KETONES,URINE NEGATIVE (NEGATIVE); LEUKOCYTE ESTERASE ,URINE 1+ (NEGATIVE); NITRITE,URINE NEGATIVE (NEGATIVE); PH,URINE 7 (5-9); PROTEIN,URINE 2+ (NEGATIVE); UROBILINOGEN,URINE NORMAL (NORMAL)
[2019-05-30 13:59] LABS: ALANINE AMINOTRANSFERASE 15 U/L (0-55); ALBUMIN 4.4 GM/DL (3.2-4.5); ALKALINE PHOSPHATASE 69 U/L (40-136); AMYLASE 70 U/L (25-125); BILIRUBIN,TOTAL 0.3 MG/DL (0.1-1.0); BUN/CREATININE RATIO 12; CALCIUM 9.5 MG/DL (8.5-10.1); CARBON DIOXIDE 30 MMOL/L (21-32); CHLORIDE 105 MMOL/L (98-107); CREATININE SERUM 0.92 MG/DL (0.60-1.30); GFR ESTIMATED > 60; GLUCOSE 87 MG/DL (70-105); LIPASE 33 U/L (8-78); POTASSIUM 4.2 MMOL/L (3.6-5.0); SODIUM 142 MMOL/L (135-145); TOTAL PROTEIN 7.7 GM/DL (6.4-8.2)
[2019-05-30 14:11] LABS: BACTERIA,URINE NEGATIVE /HPF; RBC,URINE 25-50 /HPF; WBC,URINE RARE /HPF
--- NOTE | 2019-05-30 14:25 | ED GU-Male ---
General Chief Complaint: Abdominal/GI Problems Stated Complaint: KIDNEY STONES Nursing Triage Note: Pt to RM 6 with C/O kidney stones and abd pain 04/16. Pt also reports hematuria. Source: patient Exam Limitations: no limitations History of Present Illness Date Seen by Provider: May 30, 2019 Time Seen by Provider: 13:33 Initial Comments 39-year-old male who presents to emergency room with complaints of kidney stone on his left side for the past 2 years. He reports that he's been in and out of long-term and has been unable to make his appointments but when he went to Dr. Ochoa's office today they require a $500 co-pay. He reports that he has hematuria. He has taken his medications from previous visit. He has had several visits for his kidney stone over the past 2 years. Associated Symptoms: lower back pain Allergies and Home Medications Allergies Coded Allergies: No Known Drug Allergies (Unverified , 01/26/19) Home Medications Ciprofloxacin HCl 500 Mg Tablet, 500 MG PO BID Prescribed by: ROLAN CARDONA on 05/17/19126 Ketorolac Tromethamine 10 Mg Tablet, 10 MG PO Q6H Prescribed by: ROLAN CARDONA on 05/17/19126 Tamsulosin HCl 0.4 Mg Cap, 0.4 MG PO DAILY Prescribed by: ROLAN CARDONA on 05/17/19126 Tramadol HCl 50 Mg Tablet, 50 MG PO Q4H PRN for PAIN-MODERATE Prescribed by: ROLAN CARDONA on 05/17/19126 Patient Home Medication List Home Medication List Reviewed: Yes Review of Systems Review of Systems Constitutional: see HPI; No chills, No fever Genitourinary: see HPI, flank pain, hematuria, other (left-sided kidney) All Other Systemes Reviewed Negative Unless Noted: Yes Past Xvwwbuu-Sfqkdt-Rhnjeo Hx Past Med/Social Hx: Reviewed Nursing Past Med/Soc Hx Patient Social History Alcohol Use: Denies Use Recreational Drug Use: Yes Drug of Choice: UDS + FOR THC, METH/AMPHETAMINES previous Smoking Status: Current Everyday Smoker Type Used: Cigarettes 2nd Hand Smoke Exposure: Yes Recent Foreign Travel: No Contact w/Someone Who Travel: No Recent Infectious Disease Expo: No Recent Hopitalizations: No Physical Abuse: No Sexual Abuse: No Mistreated: No Fear: No Immunizations Up To Date Tetanus Booster (TDap): Less than 5yrs Seasonal Allergies Seasonal Allergies: No Past Medical History Surgeries: Yes (BMT'S) Ear Surgery Respiratory: No Cardiac: No Neurological: No Reproductive Disorders: No Sexually Transmitted Disease: No Genitourinary: Yes Kidney Stones Gastrointestinal: No Musculoskeletal: No Endocrine: No HEENT: Yes (DENTAL DECAY; BMT'S ) Chronic Ear Infection Cancer: No Psychosocial: No Integumentary: Yes (MRSA ABSCESSES/CELLULITIS,) Blood Disorders: No Family Medical History Reviewed Nursing Family Hx No Pertinent Family Hx HAS BEEN INCARCERATED Physical Exam Vital Signs Vital Signs - First Documented 05/30/19 13:33 Temp 36.9 B/P (MAP) 127/91 (103) Pulse Ox 99 O2 Delivery Room Air Capillary Refill : Less Than 3 Seconds Height, Weight, BMI Height: 6'6.00" Weight: 140lbs. 0oz. 63.953145jm; 20.00 BMI Method:Stated General Appearance: WD/WN, no apparent distress Cardiovascular: normal peripheral pulses, regular rate, rhythm, no edema, no gallop, no JVD, no murmur Respiratory: chest non-tender, lungs clear, normal breath sounds, no respiratory distress, no accessory muscle use Gastrointestinal: normal bowel sounds, non tender, soft, no organomegaly, no pulsatile mass Extremities: normal capillary refill Neurologic/Psychiatric: alert, normal mood/affect, oriented x 3 Skin: normal color, warm/dry Progress/Results/Core Measures Suspected Sepsis Recent Fever Within 48 Hours: No Infection Criteria Present: None New/Unexplained Altered Menta: No Sepsis Screen: No Definite Risk SIRS Temperature: Pulse: Respiratory Rate: Laboratory Tests 05/30/19 13:30: White Blood Count 8.3 Blood Pressure 127 /91 Mean: 103 Laboratory Tests 05/30/19 13:30: Creatinine 0.92, Platelet Count 284, Total Bilirubin 0.3 Results/Orders Lab Results Laboratory Tests Test 05/30/19 13:30 05/30/19 13:39 Range/Units White Blood Count 8.3 4.3-11.0 10^3/uL Red Blood Count 4.75 4.35-5.85 10^6/uL Hemoglobin 14.7 13.3-17.7 G/DL Hematocrit 45 40-54 % Mean Corpuscular Volume 95 80-99 FL Mean Corpuscular Hemoglobin 31 25-34 PG Mean Corpuscular Hemoglobin Concent 33 32-36 G/DL Red Cell Distribution Width 13.8 10.0-14.5 % Platelet Count 284 130-400 10^3/uL Mean Platelet Volume 10.0 7.4-10.4 FL Neutrophils (%) (Auto) 69 42-75 % Lymphocytes (%) (Auto) 21 12-44 % Monocytes (%) (Auto) 7 0-12 % Eosinophils (%) (Auto) 3 0-10 % Basophils (%) (Auto) 0 0-10 % Neutrophils # (Auto) 5.7 1.8-7.8 X 10^3 Lymphocytes # (Auto) 1.7 1.0-4.0 X 10^3 Monocytes # (Auto) 0.6 0.0-1.0 X 10^3 Eosinophils # (Auto) 0.2 0.0-0.3 10^3/uL Basophils # (Auto) 0.0 0.0-0.1 10^3/uL Sodium Level 142 135-145 MMOL/L Potassium Level 4.2 3.6-5.0 MMOL/L Chloride Level 105 98-107 MMOL/L Carbon Dioxide Level 30 21-32 MMOL/L Anion Gap 7 5-14 MMOL/L Blood Urea Nitrogen 11 7-18 MG/DL Creatinine 0.92 0.60-1.30 MG/DL Estimat Glomerular Filtration Rate > 60 BUN/Creatinine Ratio 12 Glucose Level 87 70-105 MG/DL Calcium Level 9.5 8.5-10.1 MG/DL Corrected Calcium 9.2 8.5-10.1 MG/DL Total Bilirubin 0.3 0.1-1.0 MG/DL Aspartate Amino Transf (AST/SGOT) 17 5-34 U/L Alanine Aminotransferase (ALT/SGPT) 15 0-55 U/L Alkaline Phosphatase 69 40-136 U/L Total Protein 7.7 6.4-8.2 GM/DL Albumin 4.4 3.2-4.5 GM/DL Amylase Level 70 25-125 U/L Lipase 33 8-78 U/L Urine Color YELLOW Urine Clarity CLEAR Urine pH 7 5-9 Urine Specific [place] 1.010 L 1.016-1.022 Urine Protein 2+ H NEGATIVE Urine Glucose (UA) NEGATIVE NEGATIVE Urine Ketones NEGATIVE NEGATIVE Urine Nitrite NEGATIVE NEGATIVE Urine Bilirubin NEGATIVE NEGATIVE Urine Urobilinogen NORMAL NORMAL MG/DL Urine Leukocyte Esterase 1+ H NEGATIVE Urine RBC (Auto) 4+ H NEGATIVE Urine RBC 25-50 H /HPF Urine WBC RARE /HPF Urine Squamous Epithelial Cells NONE /HPF Urine Crystals NONE /LPF Urine Bacteria NEGATIVE /HPF Urine Casts NONE /LPF Urine Mucus NEGATIVE /LPF Urine Culture Indicated NO My Orders Orders - FRANCIS OTERO Comprehensive Metabolic Panel (05/30/19 13:32) Lipase (05/30/19 13:32) Amylase (05/30/19 13:32) Ua Culture If Indicated (05/30/19 13:32) Ed Iv/Invasive Line Start (05/30/19 13:32) Cbc With Automated Diff (05/30/19 13:32) Abdomen/Kub 1view (05/30/19 14:06) Vital Signs/I&O 05/30/19 13:33 Temp 36.9 B/P (MAP) 127/91 (103) Pulse Ox 99 O2 Delivery Room Air Capillary Refill : Less Than 3 Seconds Blood Pressure Mean: 103 Diagnostic Imaging Diagonstic Imaging: Xray Plain Films/CT/US/NM/MRI: abdomen Comments NAME: RITU OR[place]O [facility] REC#: [id number] PT STATUS: REG ER : 1980 PHYSICIAN: FRANCIS OTERO ADMIT DATE: 05/30/19/ER Dr rojas Date of Exam:05/30/19 ABDOMEN/KUB 1VIEW INDICATION: Left flank pain and hematuria. FINDINGS: There is a 9 mm calcification projecting over the left proximal ureter. There are no calculi seen in either kidney. Bowel gas pattern is normal. IMPRESSION: 9 mm calculus in the left ureter distribution projecting between the L3 and L4 transverse processes. This is unchanged compared to 05/17/2019. Dictated on workstation # [id number] Dict: 05/30/19 1430 Trans: 05/30/19 1438 [id number] Interpreted by: СЕРГЕЙ DAVIS MD Electronically signed by: Reviewed: Reviewed by Me Departure Impression Primary Impression: Kidney stone on left side Disposition: 01 HOME, SELF-CARE Condition: Stable/Unchanged Departure-Patient Inst. Decision time for Depature: 14:41 Referrals: [facility] (PCP/Family) Primary Care Physician Patient Instructions: Kidney Stones (DC) Add. Discharge Instructions: You may use Tylenol and ibuprofen as directed by the bottle for pain relief. For pain unrelieved by Tylenol and ibuprofen you may use the hydrocodone. Follow-up with a urologist of your choosing. Call today for appointment times. All discharge instructions reviewed with patient and/or family. Voiced understanding. Scripts Hydrocodone Bit/Acetaminophen (Hydrocodone/Acetaminophen 5/325mg Tablet) 1 Tab Tab 1 EACH PO Q4-6HR PRN for PAIN-MODERATE MDD 10 for 3 Days, #10 TAB Prov: FRANCIS OTERO 05/30/19 FRANCIS OTERO May 30, 2019 14:25
--- NOTE | 2019-05-30 14:38 | Diagnostic Imaging Report ---
INDICATION: Left flank pain and hematuria. FINDINGS: There is a 9 mm calcification projecting over the left proximal ureter. There are no calculi seen in either kidney. Bowel gas pattern is normal. IMPRESSION: 9 mm calculus in the left ureter distribution projecting between the L3 and L4 transverse processes. This is unchanged compared to 05/17/2019. Dictated by: Dictated on workstation # [id number]
[2019-05-30] MEDS ORDERED: ACHD5005 PO (14:44)
== END 2019-05-30 14:54 | disposition home or self-care (01) ==
LOC: EDUNIT# 13:18 → ER 13:19
DX: N20.0 Calculus of kidney (principal); F17.210 Nicotine dependence, cigarettes, uncomplicated
CPT/HCPCS: 36415; 74018; 80053; 81000; 82150; 83690; 85025

== ENCOUNTER 2019-06-26 14:03 | Emergency (ER) | payer SELFPAY ==
[~2019-06-26] VITALS: Ht 182 cm; Wt 68.0 kg
--- NOTE | 2019-06-26 14:25 | ED Integumentary General ---
General Chief Complaint: Skin/Wound Problems Stated Complaint: L LEG MRSA WOUND Nursing Triage Note: TO TRIAGE WITH COMPLAINTS OF A MRSA WOUND ON HIS LEFT LOWER LEG. STATES IT HAS BEEN THERE FOR 2 WEEKS AND HAS A HX OF MRSA. Source: patient Exam Limitations: no limitations History of Present Illness Date Seen by Provider: Jun 26, 2019 Time Seen by Provider: 14:25 Initial Comments 39 yo male patient presents with 1 wk onset of redness to the left calf. patient states he tried to squeeze it at home, but denies getting any drainage. Patient has a h/o MRSA infections. Location Injury Occurred: denies injury Timing/Duration: week, getting worse Location: extremities (left calf) Possible Cause: no cause identified Modifying Factors: worse with other (worse after squeezing it.) Allergies and Home Medications Allergies Coded Allergies: No Known Drug Allergies (Unverified , 01/26/19) Home Medications Sulfamethoxazole/Trimethoprim 1 Each Tablet, 2 EACH PO UD 2 tabs po BID x 2 doses, then 1 tab po BID. Prescribed by: HERLINDA PINZON on 06/26/19 8670 Patient Home Medication List Home Medication List Reviewed: Yes Review of Systems Review of Systems Constitutional: No chills, No fever, No malaise Respiratory: no symptoms reported Cardiovascular: no symptoms reported Gastrointestinal: no symptoms reported Musculoskeletal: No joint pain, No joint swelling, No muscle pain; other (pain, redness, and warmth to the left calf.) Skin: see HPI Psychiatric/Neurological: No Symptoms Reported All Other Systems Reviewed Negative Unless Noted: Yes (Negative excepted noted.) Past Tiqupxx-Qxflhi-Dbjlbq Hx Past Med/Social Hx: Reviewed Nursing Past Med/Soc Hx Patient Social History Alcohol Use: Denies Use Recreational Drug Use: No Drug of Choice: UDS + FOR THC, METH/AMPHETAMINES previous Smoking Status: Current Everyday Smoker Type Used: Cigarettes 2nd Hand Smoke Exposure: Yes Recent Foreign Travel: No Contact w/Someone Who Travel: No Recent Infectious Disease Expo: No Recent Hopitalizations: No Immunizations Up To Date Tetanus Booster (TDap): Less than 5yrs Seasonal Allergies Seasonal Allergies: No Past Medical History Surgeries: Yes (BMT'S) Ear Surgery Respiratory: No Cardiac: No Neurological: No Reproductive Disorders: No Sexually Transmitted Disease: No Genitourinary: Yes Kidney Stones Gastrointestinal: No Musculoskeletal: No Endocrine: No HEENT: Yes (DENTAL DECAY; BMT'S ) Chronic Ear Infection Cancer: No Psychosocial: No Integumentary: Yes (MRSA ABSCESSES/CELLULITIS,) Blood Disorders: No Family Medical History Reviewed Nursing Family Hx No Pertinent Family Hx HAS BEEN INCARCERATED Physical Exam Vital Signs Vital Signs - First Documented 06/26/19 14:08 Temp 36.9 Pulse 72 Resp 16 B/P (MAP) 136/92 (107) Pulse Ox 98 O2 Delivery Room Air Capillary Refill : Less Than 3 Seconds General Appearance: WD/WN, no apparent distress Cardiovascular: normal peripheral pulses, regular rate, rhythm, no edema, no murmur Respiratory: lungs clear, normal breath sounds, no respiratory distress, no accessory muscle use Extremities: no pedal edema, normal capillary refill, inflammation (4x4 cm area of erythema, minimal swelling, and tenderness with a central scab.) Neurologic/Psychiatric: alert, normal mood/affect, oriented x 3 Skin: normal color, warm/dry, other (4x4 cm area of erythema, minimal swelling, and tenderness with a central scab.) Skin Problem Location: lower extremities (left calf) Skin Problem Character: erythema, swelling (minimal), tenderness, warm Progress/Results/Core Measures Results/Orders My Orders Orders - HERLINDA PINZON Hydrocodone/Apap 5/325 Tablet (Lortab 5 (06/26/19 15:00) Wound Culture (06/26/19 14:53) Medications Given in ED Current Medications Medications Dose Ordered Sig/Shayan Route Start Time Stop Time Status Last Admin Dose Admin Acetaminophen/ Hydrocodone Bitart 1 tab ONCE ONCE PO 06/26/19 15:00 06/26/19 15:01 DC 06/26/19 14:58 1 TAB Vital Signs/I&O 06/26/19 14:08 Temp 36.9 Pulse 72 Resp 16 B/P (MAP) 136/92 (107) Pulse Ox 98 O2 Delivery Room Air Blood Pressure Mean: 107 Departure Communication (Admissions) Patient seen and evaluated. Scab removed at the time of exam. Approximately 0.5-1 cc of purulent fluid expressed. Wound covered with gauze and an Davidson bandage. Plan for discharge to home. Impression Primary Impression: Cellulitis and abscess of leg, except foot Disposition: HOME, SELF-CARE Condition: Improved Departure-Patient Inst. Decision time for Depature: 14:51 Referrals: [facility] (PCP/Family) Primary Care Physician Patient Instructions: Cellulitis (Skin Infection), Adult (DC) Add. Discharge Instructions: All discharge instructions reviewed with patient and/or family. Voiced understanding. Medications as instructed. Tylenol Extra Strength [id number] as directed for pain. Ibuprofen 800 mg by mouth every 8 hours as needed for pain. Elevate the left lower extremity on pillows above the level of heart. Shower with antibacterial soap. Follow-up with your primary care provider early this week for recheck, call tomorrow morning for appointment time. Return in the emergency department for worsened symptoms or any other concerns. Scripts Sulfamethoxazole/Trimethoprim (Bactrim Ds Tablet) 1 Each Tablet 2 EACH PO UD, #22 TAB 0 Refills 2 tabs po BID x 2 doses, then 1 tab po BID. Prov: HERLINDA PINZON 06/26/19 Images Extremities-Lower 1 - Cellulitis, Swelling (minimal), Tenderness Copy Copies To 1: BRADY ALLEN GRETCHEN L PA Jun 26, 2019 14:25
[2019-06-26] MEDS ORDERED: SULF1TAB35 PO (14:53)
[2019-06-26] MEDS ORDERED: HYDROcodone/APAP 5 MG/325 MG (LORTAB) TAB PO ONE (15:00)
[2019-06-26 15:42] VITALS: BP 136/92
[2019-06-28] MEDS ORDERED: SULF1TAB35 PO (13:25)
[2019-06-28] MEDS ORDERED: HYDR-3455 PO (13:25)
[2019-06-30] MEDS ORDERED: ACHD5005 PO (15:47)
== END 2019-06-26 15:42 | disposition home or self-care (01) ==
LOC: EDUNIT# 14:03 → ER 14:05
DX: L03.116 Cellulitis of left lower limb (principal); L02.416 Cutaneous abscess of left lower limb; F17.210 Nicotine dependence, cigarettes, uncomplicated; Z87.442 Personal history of urinary calculi
CPT/HCPCS: 10060; 87070; 87077; 87186; 87205

== ENCOUNTER → 2019-06-28 | Emergency (ER) | payer SELFPAY ==
[~2019-06-28] VITALS: Ht 182 cm; Wt 72.0 kg
[~2019-06-28] MED LIST changes: +HYDR-3455 PO
[2019-06-28 12:50] VITALS: BP 139/76
--- NOTE | 2019-06-28 13:09 | ED Integumentary General ---
General Chief Complaint: Skin/Wound Problems Stated Complaint: L LEG PAIN Nursing Triage Note: WAS SEEN HERE ON THURSDAY FOR WOUND ON LEFT LEG. STARTED ON A ABX AND THINKS IT IS NOT BETTER. Source: patient Exam Limitations: no limitations History of Present Illness Date Seen by Provider: Jun 28, 2019 Time Seen by Provider: 13:00 Initial Comments A 79-year-old white male presents with a MRSA abscess to his left leg the calf there that he states is not improving despite an incision and drainage here 2 days ago and oral sulfa drugs. The patient is complaining of pain in the area. He denies loss of sensation or range of motion affected extremity. He denies other MRSA abscess at this time. In the past the patient has had similar abscesses which have responded to incision and drainage and sulfa antibiotics. Allergies and Home Medications Allergies Coded Allergies: No Known Drug Allergies (Unverified , 01/26/19) Home Medications Sulfamethoxazole/Trimethoprim 1 Each Tablet, 2 EACH PO UD 2 tabs po BID x 2 doses, then 1 tab po BID. Prescribed by: HERLINDA PINZON on 06/26/19 4347 Patient Home Medication List Home Medication List Reviewed: Yes Review of Systems Review of Systems Constitutional: No chills, No fever EENTM: No ear pain Respiratory: No cough Cardiovascular: No chest pain Gastrointestinal: No abdominal pain Genitourinary: no symptoms reported Musculoskeletal: no symptoms reported Skin: see HPI, lesions Psychiatric/Neurological: No Symptoms Reported (draining abscess to the calf of the left leg) Endocrine: No Symptoms Reported Hematologic/Lymphatic: No Symptoms Reported Past [id number] Hx Past Med/Social Hx: Reviewed Nursing Past Med/Soc Hx Patient Social History Alcohol Use: Denies Use Recreational Drug Use: No Drug of Choice: UDS + FOR THC, METH/AMPHETAMINES previous Smoking Status: Current Everyday Smoker Type Used: Cigarettes 2nd Hand Smoke Exposure: Yes Recent Foreign Travel: No Contact w/Someone Who Travel: No Recent Infectious Disease Expo: No Recent Hopitalizations: No Immunizations Up To Date Tetanus Booster (TDap): Less than 5yrs Seasonal Allergies Seasonal Allergies: No Past Medical History Surgeries: Yes (BMT'S) Ear Surgery Respiratory: No Cardiac: No Neurological: No Reproductive Disorders: No Sexually Transmitted Disease: No Genitourinary: Yes Kidney Stones Gastrointestinal: No Musculoskeletal: No Endocrine: No HEENT: Yes (DENTAL DECAY; BMT'S ) Chronic Ear Infection Cancer: No Psychosocial: No Integumentary: Yes (MRSA ABSCESSES/CELLULITIS,) Blood Disorders: No Family Medical History No Pertinent Family Hx HAS BEEN INCARCERATED Physical Exam Vital Signs Vital Signs - First Documented 06/28/19 12:50 Temp 37.0 Pulse 70 Resp 16 B/P (MAP) 139/76 (97) Pulse Ox 99 O2 Delivery Room Air Capillary Refill : Less Than 3 Seconds General Appearance: WD/WN, no apparent distress HEENT: normal ENT inspection Neck: normal inspection Cardiovascular: regular rate, rhythm Gastrointestinal: normal bowel sounds Back: normal inspection Extremities: normal range of motion Neurologic/Psychiatric: no motor/sensory deficits, alert Skin: other (draining MRSA abscess left calf) Skin Problem Location: lower extremities Skin Problem Character: abscess Progress/Results/Core Measures Results/Orders Vital Signs/I&O 06/28/19 12:50 Temp 37.0 Pulse 70 Resp 16 B/P (MAP) 139/76 (97) Pulse Ox 99 O2 Delivery Room Air Blood Pressure Mean: 97 Progress Progress Note : Time: 13:21 Progress Note The abscess lateral aspect midportion left calf was incised and drained with residual versus material scraped from the bottom of the patient's abscess. I odoform packing was then utilized. A dressing was applied. Departure Impression Primary Impression: MRSA (methicillin resistant Staphylococcus aureus) Disposition: 01 HOME, SELF-CARE Condition: Improved Departure-Patient Inst. Decision time for Depature: 13:23 Referrals: [facility] (PCP/Family) Primary Care Physician Patient Instructions: Abscess Incision and Drainage (DC), MRSA (DC) Add. Discharge Instructions: Bactrim DS and Vicodin as prescribed. Thoroughly clean the abscess daily with soap and water. Return if any problems or questions. Follow-up with here doctor at [facility] within the next 48 hours. All discharge instructions reviewed with patient and/or family. Voiced understanding. Scripts Hydrocodone/Acetaminophen (Vicodin 5-300 mg Tablet) 1 Each Tablet 1-2 EACH PO Q6H PRN for PAIN-MODERATE MDD 10 for 7 Days, #20 TAB Prov: LEMUEL MARTINEZ MD 06/28/19 Sulfamethoxazole/Trimethoprim (Bactrim Ds Tablet) 1 Each Tablet 1 EACH PO BID for 10 Days, #20 TAB Prov: LEMUEL MARTINEZ MD 06/28/19 LEMUEL MARTINEZ MD Jun 28, 2019 13:09
== END ==
LOC: EDUNIT# 12:06 → ER 12:07
DX: A49.02 Methicillin resistant Staphylococcus aureus infection, unspecified site (principal); F17.210 Nicotine dependence, cigarettes, uncomplicated; Z87.442 Personal history of urinary calculi
CPT/HCPCS: 10060; 87070; 87077; 87186; 87205

== ENCOUNTER 2019-07-05 16:38 | Emergency (ER) | payer SELFPAY ==
[~2019-07-05] VITALS: Ht 182.8 cm; Wt 68.1 kg
[2019-07-05] MEDS ORDERED: BENZ100C18 PO (17:18)
--- NOTE | 2019-07-05 17:18 | ED Integumentary General ---
General Chief Complaint: Skin/Wound Problems Stated Complaint: L LEG MRSA WOUND/COUGH/CHILLS Nursing Triage Note: has wound on L leg that was I&D four days ago, has not been able to pack it for two days and now has pain in it, also thinks he may have pneumonia because he can not stop coughing Source: patient Exam Limitations: no limitations History of Present Illness Date Seen by Provider: Jul 05, 2019 Time Seen by Provider: 17:13 Initial Comments 39-year-old male who presents to the emergency room with complaints of a wound on the left leg had a previous abscess that has been I&D twice in the emergency room. He is currently on antibiotics and reports that he has not been able to pack the wound like instructed. The wound is no longer red has minimal amount of drainage at this time. Wound appears to be healing appropriately. He also has had a productive cough for the past 2 days. He denies taking any medications for his cough. Associated Symptoms: denies symptoms Allergies and Home Medications Allergies Coded Allergies: No Known Drug Allergies (Unverified , 01/26/19) Home Medications Benzonatate 100 Mg Capsule, 200 MG PO TID Prescribed by: FRANCIS OTERO on 07/05/19 1718 Hydrocodone Bit/Acetaminophen 1 Tab Tab, 1-2 EACH PO Q6H PRN for PAIN-MODERATE Prescribed by: HERNANDO BROWN on 06/30/19 1547 Hydrocodone/Acetaminophen 1 Each Tablet, 1-2 EACH PO Q6H PRN for PAIN-MODERATE Prescribed by: LEMUEL MARTINEZ MD on 06/28/19 1325 Sulfamethoxazole/Trimethoprim 1 Each Tablet, 2 EACH PO UD 2 tabs po BID x 2 doses, then 1 tab po BID. Prescribed by: HERLINDA PINZON on 06/26/19 1453 Sulfamethoxazole/Trimethoprim 1 Each Tablet, 1 EACH PO BID Prescribed by: LEMUEL MARTINEZ MD on 06/28/19 1325 Patient Home Medication List Home Medication List Reviewed: Yes Review of Systems Review of Systems Constitutional: see HPI; No chills, No fever Respiratory: see HPI, cough Skin: see HPI, other (abscess to left outer calf.) All Other Systems Reviewed Negative Unless Noted: Yes Past Oeikvss-Ckwhil-Eegkfn Hx Past Med/Social Hx: Reviewed Nursing Past Med/Soc Hx Patient Social History Alcohol Use: Denies Use Recreational Drug Use: No Drug of Choice: UDS + FOR THC, METH/AMPHETAMINES previous Type Used: Cigarettes 2nd Hand Smoke Exposure: Yes Recent Foreign Travel: No Contact w/Someone Who Travel: No Recent Infectious Disease Expo: No Recent Hopitalizations: No Immunizations Up To Date Tetanus Booster (TDap): More than 5yrs Seasonal Allergies Seasonal Allergies: No Past Medical History Surgeries: Yes (BMT'S) Ear Surgery Respiratory: No Cardiac: No Neurological: No Reproductive Disorders: No Sexually Transmitted Disease: No Genitourinary: Yes Kidney Stones Gastrointestinal: No Musculoskeletal: No Endocrine: No HEENT: Yes (DENTAL DECAY; BMT'S ) Chronic Ear Infection Cancer: No Psychosocial: No Integumentary: Yes (MRSA ABSCESSES/CELLULITIS,) Blood Disorders: No Family Medical History Reviewed Nursing Family Hx No Pertinent Family Hx HAS BEEN INCARCERATED Physical Exam Vital Signs Vital Signs - First Documented 07/05/19 07/05/19 16:59 17:33 Temp 36.5 Pulse 98 Resp 18 B/P (MAP) 120/77 (91) Pulse Ox 99 O2 Delivery Room Air Capillary Refill : Less Than 3 Seconds General Appearance: WD/WN, no apparent distress HEENT: PERRL/EOMI, normal ENT inspection, TMs normal, pharynx normal Cardiovascular: normal peripheral pulses, regular rate, rhythm, no edema, no gallop, no JVD, no murmur Respiratory: chest non-tender, lungs clear, normal breath sounds, no respiratory distress, no accessory muscle use Gastrointestinal: normal bowel sounds, non tender, soft, no organomegaly, no pulsatile mass Neurologic/Psychiatric: alert, normal mood/affect, oriented x 3 Skin: normal color, warm/dry Skin Problem Location: lower extremities (left outer calf) Skin Problem Character: abscess (healing abscess to left outer calf. No erythema minimal amount of drainage, he is currently on antibiotics. Wound is healing appropriately.) Progress/Results/Core Measures Results/Orders Vital Signs/I&O 07/05/19 07/05/19 16:59 17:33 Temp 36.5 36.5 Pulse 98 98 Resp 18 18 B/P (MAP) 120/77 (91) 120/77 (91) Pulse Ox 99 O2 Delivery Room Air Blood Pressure Mean: 91 POS Departure Impression Primary Impression: Abscess Additional Impression: Viral respiratory illness Disposition: 01 HOME, SELF-CARE Condition: Stable/Unchanged Departure-Patient Inst. Decision time for Depature: 17:15 Referrals: [facility] (PCP/Family) Primary Care Physician Patient Instructions: VIRAL RESP ILLNESS-ADULT, Skin Abscess Add. Discharge Instructions: Take medication as directed. Follow-up with your primary care provider as ivanna mata Return back to the emergency room for worsening symptoms or concerns as needed. All discharge instructions reviewed with patient and/or family. Voiced understanding. Scripts Benzonatate (TESKERWIN CALDERON) 100 Mg Capsule 200 MG PO TID for 7 Days, #21 CAP Prov: FRANCIS OTERO 07/05/19 FRANCIS OTERO Jul 05, 2019 17:18 POS
[2019-07-05 17:33] VITALS: BP 120/77
[2019-07-06] MEDS ORDERED: PRD20T PO (15:10)
[2019-07-06] MEDS ORDERED: CYCL10TA9 PO (15:10)
== END 2019-07-05 17:34 | disposition home or self-care (01) ==
LOC: EDUNIT# 16:38 → ER 16:39
DX: L02.416 Cutaneous abscess of left lower limb (principal); J06.9 Acute upper respiratory infection, unspecified; Z77.22 Contact with and (suspected) exposure to environmental tobacco smoke (acute) (chronic); Z87.442 Personal history of urinary calculi

== ENCOUNTER 2019-07-06 12:13 | Emergency (ER) | payer SELFPAY ==
[~2019-07-06] VITALS: Ht 182.2 cm; Wt 68.0 kg
[~2019-07-06 12:13] MED LIST changes: +BENZ100C18 PO
--- NOTE | 2019-07-06 13:45 | ED Back Pain ---
General Chief Complaint: Back Problems Stated Complaint: BACK PAIN Nursing Triage Note: CAME FOR A WORK NOTE FROM HIS LAST VISIT BUT DECIDED TO CHECK IN BECAUSE HIS LOW BACK IS STILL HURTING. NO INJURY Nursing Sepsis Screen: No Definite Risk Source of Information: Patient (VENTURA ESPOSITO,MED STUDENT) History of Present Illness Date Seen by Provider: Jul 06, 2019 Time Seen by Provider: 13:15 Initial Comments This 39y/o males presents to the ED with back pain that has been going on for approximately 1 week. Pain has gotten worse in the couple of days and is made worse by anything that causes him to movement his back (walking, coughing, twisting). Pain is described as sharp and constant of the lumbar spine and it does not radiation down his legs or into his pelvis. He denies any changes in bowel or bladder functios, and changes in daily routine or any strenuous activities that may have caused a back injury. He also mentions that he has been sick for the past 2 day and is on an antibiotic for an infection but he does not know the antibiotic or cause of the infection. Patient states that he has been running a fever off and on, has nasal congestion, sore throat and productive cough. He says that he has a history of kidney stones and has smoked 1/2ppd for 16yrs. Location: Lumbar Spine, Paraspinous Muscles Timing/Duration: 1 Week Pain/Injury Location: Back Method of Injury: Unknown (VENTURA ESPOSITO,MED STUDENT) Allergies and Home Medications Allergies Coded Allergies: No Known Drug Allergies (Unverified , 01/26/19) Home Medications Benzonatate 100 Mg Capsule, 200 MG PO TID Prescribed by: FRANCIS OTERO on 07/05/19 1718 Cyclobenzaprine HCl 10 Mg Tablet, 10 MG PO Q8H PRN for SPASMS Prescribed by: VICTOR HUGO TONEY on 07/06/19 1510 Hydrocodone Bit/Acetaminophen 1 Tab Tab, 1-2 EACH PO Q6H PRN for PAIN-MODERATE Prescribed by: HERNANDO BROWN on 06/30/19 1547 Hydrocodone/Acetaminophen 1 Each Tablet, 1-2 EACH PO Q6H PRN for PAIN-MODERATE Prescribed by: LEMUEL MARTINEZ MD on 06/28/19 1325 Prednisone 20 Mg Tab, 20 MG PO DAILY Prescribed by: VICTOR HUGO TONEY on 07/06/19 1510 Sulfamethoxazole/Trimethoprim 1 Each Tablet, 2 EACH PO UD 2 tabs po BID x 2 doses, then 1 tab po BID. Prescribed by: HERLINDA PINZON on 06/26/19 1453 Sulfamethoxazole/Trimethoprim 1 Each Tablet, 1 EACH PO BID Prescribed by: LEMUEL MARTINEZ MD on 06/28/19 1325 Patient Home Medication List Home Medication List Reviewed: Yes (VICTOR HUGO FANG MD) Review of Systems Constitutional: chills, fever EENTM: nose congestion, throat pain Respiratory: cough, phlegm; No short of breath Cardiovascular: No chest pain, No Hx of Intervention, No palpitations Gastrointestinal: LUQ; No constipation, No diarrhea Genitourinary: no symptoms reported Musculoskeletal: back pain Skin: no symptoms reported (VENTURA ESPOSITO MED STUDENT) Past Pezgzfi-Llyaww-Oiprmc Hx Patient Social History Alcohol Use: Occasionally Uses Recreational Drug Use: Yes Drug of Choice: UDS + FOR THC, METH/AMPHETAMINES previous Smoking Status: Current Everyday Smoker (1/2ppd for 16yrs) Type Used: Cigarettes 2nd Hand Smoke Exposure: Yes Recent Foreign Travel: No Contact w/Someone Who Travel: No Recent Infectious Disease Expo: No Recent Hopitalizations: No (VENTURA ESPOSITO MED STUDENT) Immunizations Up To Date Tetanus Booster (TDap): More than 5yrs (VENTURA ESPOSITO MED STUDENT) Seasonal Allergies Seasonal Allergies: No (VENTURA ESPOSITO MED STUDENT) Past Medical History Surgeries: Yes (BMT'S) Ear Surgery Respiratory: No Cardiac: No Neurological: No Reproductive Disorders: No Sexually Transmitted Disease: No Genitourinary: Yes Kidney Stones Gastrointestinal: No Musculoskeletal: No Endocrine: No HEENT: Yes (DENTAL DECAY; BMT'S ) Chronic Ear Infection Cancer: No Psychosocial: No Integumentary: Yes (MRSA ABSCESSES/CELLULITIS,) Blood Disorders: No (VENTURA ESPOSITO MED STUDENT) Family Medical History No Pertinent Family Hx HAS BEEN INCARCERATED (VENTURA ESPOSITO MED STUDENT) Physical Exam Vital Signs Vital Signs - First Documented 07/06/19 07/06/19 12:40 15:28 Temp 37.6 Pulse 91 Resp 16 B/P (MAP) 133/88 (103) Pulse Ox 100 O2 Delivery Room Air (VICTOR HUGO FANG MD) Vital Signs Capillary Refill : Less Than 3 Seconds (VENTURA ESPOSITO,MED STUDENT) Height, Weight, BMI Height: 6'6.00" Weight: 140lbs. 0oz. 63.643220gx; 20.00 BMI Method:Stated General Appearance: No Apparent Distress, WD/WN HEENT: PERRL/EOMI Neck: Full Range of Motion Cardiovascular: Regular Rate, Rhythm, No Edema, No Gallop, No JVD, No Murmur, Normal Peripheral Pulses Respiratory: Chest Non Tender, Lungs Clear, No Accessory Muscle Use, No Respiratory Distress, Decreased Breath Sounds Peripheral Pulses: 2+ Dorsalis Pedis (R), 2+ Left Dors-Pedis (L), 2+ Radial Pulses (R), 2+ Radial Pulses (L) Gastrointestinal: Normal Bowel Sounds, No Pulsatile Mass, Soft, Tenderness (tender to palpation in the LUQ ) Back: Vertebral Tenderness Extremity: Normal Capillary Refill, Normal Inspection, Normal Range of Motion, Non Tender, No Calf Tenderness, No Pedal Edema Neurologic/Psychiatric: Alert, Oriented x3, No Motor/Sensory Deficits, Normal Mood/Affect Skin: Normal Color, Warm/Dry (VENTURA ESPOSITO,MED STUDENT) Progress/Results/Core Measures Results/Orders My Orders Orders - VICTOR HUGO FANG MD Ketorolac Injection (Toradol Injection) (07/06/19 15:15) Orphenadrine Injection (Norflex Injectio (07/06/19 15:15) (VICTOR HUGO FANG MD) Medications Given in ED Current Medications Medications Dose Ordered Sig/Shayan Route Start Time Stop Time Status Last Admin Dose Admin Ketorolac Tromethamine 30 mg ONCE ONCE IM 07/06/19 15:15 07/06/19 15:16 DC 07/06/19 15:16 30 MG Orphenadrine Citrate 60 mg ONCE ONCE IM 07/06/19 15:15 07/06/19 15:16 DC 07/06/19 15:16 60 MG (VICTOR HUGO FANG MD) Vital Signs/I&O 07/06/19 07/06/19 12:40 15:28 Temp 37.6 37.6 Pulse 91 91 Resp 16 B/P (MAP) 133/88 (103) 133/88 (103) Pulse Ox 100 100 O2 Delivery Room Air (VICTOR HUGO FANG MD) Blood Pressure Mean: 103 POS Departure Impression Primary Impression: Lower back pain Qualified Codes: M54.5 - Low back pain Disposition: 01 HOME, SELF-CARE Condition: Improved Departure-Patient Inst. Decision time for Depature: 15:08 (VICTOR HUGO FANG MD) [place] [facility] [place] Primary Care Physician Patient Instructions: Low Back Pain in Adults Add. Discharge Instructions: For primary pain control you may use ibuprofen up to 600 mg every 6 hours as needed. Take with food or milk to avoid stomach irritation. You may also take Tylenol (acetaminophen) up to 1000 mg every 6 hours as needed. Gentle heat applied to your back may help reduce pain and tension. Follow-up with your primary care provider soon as possible. Return to care promptly if you have worsening of condition that includes numbness or weakness of your legs, numbness in the groin, loss of control of bowels or bladder, or inability to produce bowel movements or urine. All discharge instructions reviewed with patient and/or family. Voiced understanding. Scripts Cyclobenzaprine HCl (Cyclobenzaprine HCl) 10 Mg Tablet 10 MG PO Q8H PRN for SPASMS, #10 TAB 0 Refills Prov: VICTOR HUGO FANG MD 07/06/19 Prednisone (Prednisone) 20 Mg Tab 20 MG PO DAILY, #4 TAB 0 Refills Prov: VICTOR HUGO FANG MD 07/06/19 Work/School Note: Work Release Form Date Seen in the Emergency Department: Jul 06, 2019 Return to Work: Jul 07, 2019 Restrictions: No Restrictions This patient was interviewed and examined by me personally along with Ventura Esposito, MS 3. I agree with MS 3 history, physical, assessment, and documentation with the following additions and corrections. This 39-year-old gentleman presents to the emergency room with complaints of lower back pain for the past few days. Pain is worse with activities. He has taken [id number] medications including ibuprofen without much benefit. He denies any radicular symptoms, lower extremity weakness, saddle paresthesias, or dysfunction in bowel or bladder. He also reports being treated for an abscess on the left calf it is presently on antibiotics. He also complains of some congestion. Exam: Gen.: Alert, oriented, no acute distress, thin HEENT: Normocephalic and atraumatic, mucous membranes moist Heart: Regular rate and rhythm without murmur Lungs: Clear to auscultation bilaterally with normal effort Abdomen: Soft, and nontender Back: Generalized tenderness throughout the lumbar spine and paraspinous muscles. No focal area of increased tenderness. Neuro/psych: Alert, oriented, no gross neurologic deficits Patient was treated with Toradol and Norflex. He was offered prednisone which she accepted. The wound on his calf was examined. Wound has been sticking to the dressing. He was advised to use antibiotic ointment to prevent sticking to the dressing which would help facilitate healing. Patient's congestion and cough has just started the last couple of days. He is afebrile. He was advised this is likely a viral upper respiratory infection and was advised to quit smoking. (VICTOR HUGO FANG MD) VENTURA ESPOSITO,MED STUDENT Jul 06, 2019 13:45 VICTOR HUGO OZUNA MD Jul 06, 2019 15:11 POS
--- NOTE | 2019-07-06 14:44 | NUR ---
NOTIFIED OF CONTINUED BUSY ER. DENIES COMPLAINTS AT THIS TIME.
[2019-07-06] MEDS ORDERED: CYCL10TA9 PO (15:10)
[2019-07-06] MEDS ORDERED: PRD20T PO (15:10)
[2019-07-06] MEDS ORDERED: ORPHENADRINE 60 MG/2 ML (NORFLEX) AMP IM ONE (15:15)
[2019-07-06] MEDS ORDERED: KETOROLAC 30 MG/ML VIAL IM ONE (15:15)
[2019-07-06 15:28] VITALS: BP 133/88
== END 2019-07-06 15:28 | disposition home or self-care (01) ==
LOC: EDUNIT# 12:13 → ER 12:14
DX: M54.5 Low back pain (principal); F17.210 Nicotine dependence, cigarettes, uncomplicated; Z87.442 Personal history of urinary calculi
CPT/HCPCS: 96372; 99284